=== PATIENT | male | born 1955 | race Caucasian/White ===

== ENCOUNTER → 2019-10-05 13:31 | Outpatient (CLI) | payer MEDICARE, SELFPAY ==
[2019-10-05 13:38] LABS: Basophils # 0.1 K/mm3 (0-0.2); Basophils % 1.2 % (0.1-2.0); Eosinophils # 0.1 K/mm3 (0.0-0.4); Hematocrit 47.1 % (42.0-52.0); Hemoglobin 15.4 g/dL (14.1-18.0); Lymphocytes # 1.8 K/mm3 (0.7-4.5); Lymphocytes % 47.7 % (10-50); Mean Corpuscular HGB Conc 32.7 g/dL (31.8-35.4); Mean Corpuscular Hemoglobin 31.7 pg (27.0-31.2); Mean Corpuscular Volume 97.1 fl (80-94); Mean Platelet Volume 7.7 fl (7.4-10.4); Monocytes # 0.3 K/mm3 (0.1-1.0); Monocytes % 7.4 % (1.7-9.3); Neutrophils # 1.5 K/mm3 (1.8-7.8); Neutrophils % 40.6 % (37.0-80.0); Platelet Count 275 K/mm3 (142-424); Red Blood Count 4.85 M/mm3 (4.60-6.20); Red Cell Distribution Width 15.2 % (11.5-17.5); White Blood Count 3.8 K/mm3 (4.8-10.8)
[2019-10-05 13:59] LABS: Chloride 108 mmol/L (98-107)
[2019-10-05 14:00] LABS: Potassium 3.8 mmoL/L (3.5-5.1); Sodium 143 mmol/L (136-145)
[2019-10-05 14:02] LABS: Alanine Aminotransferase 22 U/L (12-78); Alkaline Phosphatase 101 U/L (38-126); Aspartate Amino Transferase 49 U/L (17-59); Bilirubin,Total 0.4 mg/dl (0.2-1.3); Blood Urea Nitrogen 15 mg/dl (9-20); Estimated Glomerular Filt Rate 85 ml/min (>60); GFR (African American) 102 ML/MIN (>60)
[2019-10-05 14:03] LABS: Albumin Level 4.1 g/dl (3.5-5.0); Albumin/Globulin Ratio 1.2 (1.1-1.8); Anion Gap 13.8 mEq/L (5-15); Calcium 9.4 mg/dl (8.4-10.2); Carbon Dioxide 25 mmol/L (22.0-30.0); Chol/HDL Ratio 3.9 (1-3.5); Cholesterol 213 mg/dl (140-200); Globulin 3.4 g/dL (1.3-3.2); Glucose 88 mg/dl (74-100); HDL Cholesterol 54 mg/dl (40-60); Total Protein,Serum 7.5 g/dl (6.3-8.2); Triglycerides 257 mg/dl (30-150); VLDL Cholesterol 51 mg/dL (0-40)
[2019-10-05 14:14] LABS: Direct LDL Cholesterol 131.53 mg/dL (100-129)
[2019-10-05 14:20] LABS: T4 (Thyroxine) 9.1 ug/dl (5.53-11.0)
[2019-10-05 14:33] LABS: Thyroid Stimulating Hormone 0.93 uIU/mL (0.465-4.68)
[2019-10-06 12:18] LABS: PSA, Free 0.24 ng/mL; Prostate Specific Ag 0.8 ng/mL (0.0-4.0); Vitamin D 25 Hydroxy 8.5 ng/mL (30.0-100.0)
[2019-10-07 10:31] LABS: Vitamin B12 177 pg/mL (232-1245)
[2019-10-07 13:58] LABS: Folate 11.1 ng/mL (>3.0)
== END ==
LOC: LAB.DROPOF 13:31
PROVIDERS: Visit Provider Physician Assistant
DX: R06.02 Shortness of breath (principal); R53.83 Other fatigue; E78.5 Hyperlipidemia, unspecified; D64.9 Anemia, unspecified; E55.9 Vitamin D deficiency, unspecified; Z87.891 Personal history of nicotine dependence; Z12.2 Encounter for screening for malignant neoplasm of respiratory organs
CPT/HCPCS: 80053; 80061; 82607; 82652; 82746; 84153; 84154; 84436; 84443; 85025

== ENCOUNTER → 2019-10-27 09:52 | Outpatient (CLI) | payer MEDICARE, SELFPAY ==
--- NOTE | 2019-10-27 09:54 | CT_ITS ---
PROCEDURE: CT LUNG SCREENING CLINICAL INDICATION: Dyspnea, smoker Nicotine use, smoker, dyspnea COMPARISON: No exams were available for comparison TECHNIQUE: The exam was performed on a GE Light Speed [address] scanner using 2.90 mGy CTDI. A low dose helical CT CHEST was performed on a multi-detector scanner. All CT scans at the facility use one or more dose reduction, viz: automated exposure control, ma/kV adjustment per patient size (including targeted exams where dose is matched to indication, i.e. head), or iterative reconstruction technique. The LDCT was performed in a facility that meets the criteria for the screening program. Data regarding this exam was submitted to [employer] which is an approved registry. The order for this exam indicates that it came as a result of a lung cancer screening counseling shard decision-making visit that included all the elements required of such a visit including smoking cessation. The radiologist interpreting this exam meets the [facility] criteria for the LDCT lung cancer screening program. The exam is reported using the Lung-RADS classification scale and reported to the [employer] registry. NOTE: This study was performed for the specific purposes of lung cancer screening and is not an alternative to diagnostic chest CT. RADIATION DOSE: CTDI vol(CT dose Index-volume) = 2.90mG DLP (Dose Length Product) = 129.50 mGcm FINDINGS: COPD with centrilobular emphysema and scattered areas of scarring. Old granulomatous disease. Irregular increased density in the left upper lobe consistent with scarring.. 6 mm subpleural nodular opacity left lower lobe series 4, image 82 OTHER FINDINGS: Left paratracheal mass at 3.5 x 2.9 cm extending slightly posterior to the trachea inseparable from the thyroid and esophagus possibly related to goiter. Suggest thyroid ultrasound for further evaluation. Coronary artery calcifications are present. IMPRESSION: Lung rads category 3, probably benign. Recommend six-month CT follow-up without and with contrast. Left paratracheal mass. Suggest thyroid ultrasound for further evaluation. Dictated by: Jan Vela MD 11/02/2019 11:18 Electronically signed by Jan Vela MD in [place] 11/02/2019 11:18
== END ==
PROVIDERS: PCP Physician Assistant; Visit Provider Physician Assistant
DX: R06.02 Shortness of breath (principal); Z87.891 Personal history of nicotine dependence
CPT/HCPCS: 94060; 94727; 94729

== ENCOUNTER → 2019-11-07 10:44 | Outpatient (CLI) | payer MEDICARE, MEDICAID, SELFPAY ==
--- NOTE | 2019-11-07 10:45 | US_ITS ---
PROCEDURE: US THYROID CLINICAL INDICATION: left paratrachheal mass COMPARISON: CT LUNG SCREENING from 10/27/2019 FINDINGS: Right lobe: 4.2 x 1.8 x 2.1 cm. Small nodules are present on the right including a 7 mm isoechoic nodule mid polar region with central decreased echogenicity, heterogeneous echo midpole at 7.5 x 4 mm, 5 mm slightly hypoechoic nodule lower pole peripheral. Left lobe: 4.8 x 3 x 3.2 cm. There is an isoechoic nodule with heterogeneous echogenicity occupying most of the left lobe at 4.2 x 2.8 cm with prominent internal blood flow. No abnormal calcifications. The nodule is well-circumscribed and is a T rads level 3 for which ultrasound-guided FNA is suggested. Isthmus: Unremarkable Additional findings: IMPRESSION: Dominant solid nodule the left lobe of the thyroid gland at 4.2 x 2.8 cm. T rads level 3. Consider FNA with ultrasound guidance for further evaluation. Dictated by: Jan Vela MD 11/07/2019 11:28 Electronically signed by Jan Vela MD in [place] 11/07/2019 11:28
== END ==
PROVIDERS: PCP Physician Assistant; Visit Provider Emergency Medicine
DX: R22.2 Localized swelling, mass and lump, trunk (principal)
CPT/HCPCS: 76536

== ENCOUNTER → 2019-11-15 09:44 | Outpatient (CLI) | payer MEDICARE, MEDICAID, SELFPAY ==
--- NOTE | 2019-11-15 09:48 | US_ITS ---
PROCEDURE: US FNA THYROID CLINICAL INDICATION: THYROID NODULE Dominant left-sided thyroid nodule, T rads level 3 greater than 2.5 cm COMPARISON: US THYROID from 11/07/2019 TECHNIQUE: Following obtaining informed consent, using aseptic technique and local anesthesia with buffered lidocaine, fine-needle aspiration was performed of the nodule of interest using sonographic guidance. 3 passes were made into the nodule with a 21-gauge needle. Specimen was given to cytology. FINDINGS: CYTOLOGY: Negative for malignancy. Consistent with benign follicular nodule IMPRESSION: Uneventful and successful ultrasound-guided fine needle aspiration of the left lobe of the thyroid gland nodule showing a benign follicular nodule. The patient tolerated the procedure well without evidence of immediate complications and left the ultrasound suite in stable condition. Dictated by: Jan Vela MD 11/18/2019 16:42 Electronically signed by Jan Vela MD in [place] 11/18/2019 16:42
== END ==
PROVIDERS: PCP Physician Assistant; Visit Provider Physician Assistant
DX: E04.1 Nontoxic single thyroid nodule (principal)
CPT/HCPCS: 10005; 76942; 88173; 88305

== ENCOUNTER → 2020-04-26 12:53 | Outpatient (CLI) | payer MEDICARE, MEDICAID, SELFPAY ==
[2020-04-26 13:53] LABS: Anion Gap 11.7 mEq/L (5-15); Blood Urea Nitrogen 14 mg/dl (9-20); Calcium 9.6 mg/dl (8.4-10.2); Carbon Dioxide 28 mmol/L (22.0-30.0); Chloride 103 mmol/L (98-107); Estimated Glomerular Filt Rate 85 ml/min (>60); GFR (African American) 102 ML/MIN (>60); Glucose 105 mg/dl (74-100); Potassium 4.7 mmoL/L (3.5-5.1); Sodium 138 mmol/L (136-145)
--- NOTE | 2020-04-26 14:02 | CT_ITS ---
PROCEDURE: CT CHEST WO/W CON CLINCAL INDICATION: abn CT lung screening Follow-up pulmonary nodule, COPD, emphysema, smoker COMPARISON: CT CT LUNG SCREENING from 10/27/2019 TECHNIQUE: IV Contrast: 75ml Optiray 350 Axial images obtained with sagittal and coronal reformats. All CT scans at the facility use one or more dose reduction, viz: automated exposure control, ma/kV adjustment per patient size (including targeted exams where dose is matched to indication, i.e. head), or iterative reconstruction technique. FINDINGS: HEART AND MEDIASTINAL STRUCTURES: Enlarged left lobe of the thyroid gland with heterogeneous density once again noted. Previous FNA of this area demonstrated benign follicular nodule. The enlarged left lobe extends posterior to the thyroid gland and abuts the left lateral aspect of the esophagus. No mediastinal or hilar adenopathy. There are coronary artery calcifications. LUNGS AND PLEURAL SPACES: Centrilobular and paraseptal emphysema with COPD and scattered areas of scarring with bullous changes in the upper lobes and evidence of old granulomatous disease. There has been interval development of an irregular nodule in the right upper lobe anteriorly image 47 series 3 measuring 8 by 6 mm. There is a new 3 mm nodule in the right middle lobe. A new irregular opacity is also present in the right upper lobe posteriorly which has a somewhat curvilinear shape measuring 11 mm in length and 3 mm in with. There is some haziness around this nodular area. There is a stable parenchymal opacity in the left upper lobe posteriorly which may be due to an area of scarring. A new subpleural nodules present in the left upper lobe laterally image 35 measuring 4 mm. A new parenchymal opacity is present in the superior segment of the left lower lobe an 8 mm. An additional new nodule is present in the left upper lobe inferiorly at 5 mm image 50. A new 4 mm nodules present in the left lower lobe medially image 62. No effusions are evident. No areas of consolidation. The previously noted opacity in the left lung base posteriorly sub pleural region is no longer apparent. BONY STRUCTURES: No acute bony abnormalities apparent. UPPER ABDOMEN: Probable focal fatty infiltration at the falciform ligament region ADDITIONAL FINDINGS: No other significant abnormalities. IMPRESSION: 1. There has been interval development of multiple small parenchymal nodules. Some of these have a hazy margin. These could be inflammatory/infectious in nature. Cannot exclude the possibility of metastatic disease. Please correlate with clinical parameters. 2. Centrilobular and paraseptal emphysema with bullous changes and COPD 3. No change enlarged left lobe of the thyroid gland Dictated by: Jan Vela MD 04/28/2020 10:44 Jan Vela MD in [place] 04/28/2020 10:44
== END ==
PROVIDERS: PCP Physician Assistant; Visit Provider Physician Assistant
DX: R91.8 Other nonspecific abnormal finding of lung field; R93.89 Abnormal findings on diagnostic imaging of other specified body structures
CPT/HCPCS: 36415; 71270; 80048; Q9967

== ENCOUNTER 2024-07-21 19:23 | Inpatient (IN) | payer MEDICARE, MEDICAID, SELFPAY ==
[2024-07-21] VITALS (39 sets, daily range): BP systolic 162–221; BP diastolic 111–156; PULSE 88–125; RESP 10–31; TEMP 35.9–36.8; O2SAT 72–98; BMI 29.5; BMI 27.6
--- NOTE | 2024-07-21 19:28 | ED_ITS ---
Discharge Plan Disposition Patient Disposition: Admitted Condition: Fair Clinical Impressions Clinical Impression: PNA (pneumonia), Pulmonary emboli Discharge ED Provider: Matheus Kendall General Adult HPI General Chief complaint: Shortness of Breath/Dyspnea Stated complaint: cough, darya oxygen-76 Time Seen by Provider: 07/21/24 19:28 History of Present Illness HPI narrative: Patient presents for evaluation of shortness of breath gradual in onset constant worsening associated with known history of COPD. No previous therapies. Associated symptoms include chest pain, nonradiating, however pleuritic in nature. No leg pain or leg swelling Please note that above description of symptoms, in this electronic medical record under categorization of recalled from ER triage doctor by RN are reflective of an initial nursing assessment, however, is not reflective of my full history and physical exam that was personally taken and clarified. Consequentially, this preceding description of symptoms, which may include the patient's categorized chief complaint in the EMR, do not reflect my personal clinical impression, and the ultimate description of history of present illness and patient stated complaints should be deferred to this section of the note. Unless stated otherwise or congruent with this section of the note, additional signs, symptoms, or incongruence should be interpreted as inaccurate with my clinical impression. Related Data Previous Rx's ?Medication ?Instructions ?Recorded cholecalciferol (vitamin D3) 25 1,000 unit PO DAILY #90 caps 10/06/19 mcg (1,000 unit) capsule ergocalciferol (vitamin D2) 1,250 1,250 mcg PO QWEEK #14 caps 10/06/19 mcg (50,000 unit) capsule albuterol sulfate 90 mcg/actuation 2 puff inhalation Q6H #18 grams 12/15/19 aerosol inhaler (Proventil HFA) albuterol sulfate 90 mcg/actuation 1 inh inhalation QID PRN shortness 06/18/20 aerosol inhaler of breath or wheezing #8.5 grams fluticasone fur. 100 mcg-umeclid 1 inh inhalation DAILY #60 ea 06/18/20 62.5 mcg-vilant 25 mcg inhalat.powder (Trelegy Ellipta) lisinopril 20 mg tablet See Rx Instructions .Route 08/29/20 .COMPLEX #90 tabs amlodipine 2.5 mg tablet See Rx Instructions .Route 01/07/21 .COMPLEX #90 tabs Allergies Allergy/AdvReac Type Severity Reaction Status Date / Time No Known Allergies Allergy Verified 06/18/20 13:13 [facility] Disclaimer: The information contained in this section may have been updated after the patient was seen, as this information can be updated by other users. Social History Smoking Status: Former smoker tobacco type: cigarettes packs per day: 1 alcohol intake: never substance use type: denies use current occupational status: other Travel in the last 8 weeks: None Have you lived/traveled outside [place] in past 30 days?: No Contact w/someone who lives/traveled outside US past 30 days?: No Exposure to someone with infectious disease in past 14 days?: No Do you have a fever (greater than 100.4 F or 38 C)?: No Have you tested positive for COVID-19: No Exposed to someone with COVID-19 in past 14 days?: No Do you have a sore throat?: No Do you have a cough?: Yes Do you have any weakness?: No Do you have any diarrhea?: No Are you experiencing any unusual bleeding?: No Do you have any muscle aches/pain?: No Do you have any abdominal pain?: No Are you experiencing loss of taste or smell?: No Other Medical History Have you received the Flu Vaccine for this season: No Have you received the Pneumonia Vaccine: No ROS Obtained: Yes other As per HPI Physical Exam General General appearance: alert and in no apparent distress Head Head exam: atraumatic and normocephalic Eye Eye exam: Present normal appearance Neck Neck exam: Present normal inspection Chest Chest inspection: Present normal inspection and symmetric chest wall rise Respiratory Respiratory exam: Present respiratory distress and wheezes Cardiovascular Cardiovascular exam: Present regular rate and normal rhythm Abdominal Exam Abdominal exam: Present soft Neurological Exam Neurological exam: Present alert and oriented X3 Psychiatric Psychiatric exam: Present normal affect and normal mood Skin Skin exam: Present warm and dry Medical Decision Making Medical Records Medical records reviewed: Yes I reviewed the patient's medical records. Screening: Per USPSTF and CDC recommendations, given the prevalence of disease in our region, it is our hospital?s policy to screen for HIV and viral Hepatitis for all patients aged 18 and over and those with ongoing risk factors. Lc Inquiry Pt receiving controlled substance: No Vital Signs: 07/21/24 19:25 07/21/24 20:00 07/21/24 20:30 Temperature 97.9 F Temperature Source Oral Pulse Rate 101 H 104 H Pulse Rate [Left Apical] 118 H Respiratory Rate 28 H Blood Pressure 183/116 H 197/115 H Blood Pressure [Right Arm] 199/140 H Blood Pressure Mean 147 156 Blood Pressure Mean [Right Arm] 159 Blood Pressure Source Blood Pressure Position 02 Sat by Pulse Oximetry 72 L 92 L 94 L Oxygen Delivery Method Room Air Nasal Cannula BiPAP Oxygen Flow Rate (LPM) 3 07/21/24 20:54 07/21/24 21:00 07/21/24 21:05 Temperature Temperature Source Pulse Rate 103 H 92 H 99 H Pulse Rate [Left Apical] Respiratory Rate Blood Pressure 212/156 H 221/141 H 184/132 H Blood Pressure [Right Arm] Blood Pressure Mean 174 167 149 Blood Pressure Mean [Right Arm] Blood Pressure Source Blood Pressure Position 02 Sat by Pulse Oximetry 94 L 95 96 Oxygen Delivery Method BiPAP BiPAP BiPAP Oxygen Flow Rate (LPM) 07/21/24 21:10 07/21/24 21:15 07/21/24 21:20 Temperature Temperature Source Pulse Rate 99 H Pulse Rate [Left Apical] Respiratory Rate Blood Pressure 185/132 H 169/127 H 195/137 H Blood Pressure [Right Arm] Blood Pressure Mean 146 143 150 Blood Pressure Mean [Right Arm] Blood Pressure Source Blood Pressure Position 02 Sat by Pulse Oximetry 94 L 94 L Oxygen Delivery Method BiPAP BiPAP Oxygen Flow Rate (LPM) 07/21/24 21:25 07/21/24 23:17 Temperature 96.7 F L Temperature Source Oral Pulse Rate 96 H 106 H Pulse Rate [Left Apical] Respiratory Rate 14 18 Blood Pressure 180/124 H 178/119 H Blood Pressure [Right Arm] Blood Pressure Mean 142 Blood Pressure Mean [Right Arm] Blood Pressure Source Automatic Cuff Blood Pressure Position Supine 02 Sat by Pulse Oximetry 98 Oxygen Delivery Method BiPAP Nasal Cannula Oxygen Flow Rate (LPM) 4 Lab Data Lab Results 07/21/24 19:34: WBC 9.8, RBC 3.43 L, Hgb 12.4 L, Hct 31.9 L, MCV 93.0, MCH 36.2 H, MCHC 38.9 H, RDW 15.8, Plt Count 296, MPV 8.9, Neut % (Auto) 74.6, Lymph % (Auto) 14.0, Amelia % (Auto) 7.3, Eos % (Auto) 2.2, Baso % (Auto) 0.7, Neut # (Auto) 7.3, Lymph # (Auto) 1.4, Amelia # (Auto) 0.7, Eos # (Auto) 0.2, Baso # (Auto) 0.1, PT 11.6, INR 1.04, Sodium 134 L, Potassium 3.8, Chloride 104, Carbon Dioxide 28, Anion Gap 5.8, BUN 26 H, Creatinine 1.10, Estimated Creat Clear 86, Estimated GFR 66, Est GFR ( Amer) 80, Glucose 108 H, Calcium 8.9, Magnesium 1.8, Total Bilirubin 0.9, AST 53, ALT 43, Alkaline Phosphatase 88, T roponin I 0.16 H, NT-Pro-B Natriuret Pep 6060 H, Total Protein 7.1, Albumin 3.5, Globulin 3.6 H, Albumin/Globulin Ratio 1.0 L, HIV Ag/Ab Combo Qual Negative 07/21/24 19:41: SARS-CoV-2 (PCR) Detected A, Influenza A Untype (PCR) Not detected, Influenza Type B (PCR) Not detected 07/21/24 19:45: VBG pH 7.38, VBG pCO2 44.8, VBG pO2 28.8, VBG HCO3 25.7, VBG Total CO2 27.1 H, VBG O2 Saturation 49.7 L, VBG Base Excess 0.6, VBG Lactic Acid 2.1 H 07/21/24 19:34 07/21/24 19:34 Orders (Tests/Meds): ED MEDICATIONS Generic Name Dose Route Start Last Admin Trade Name Freq PRN Reason Stop Dose Admin Acetaminophen 650 mg 07/21/24 23:54 Acetaminophen 325mg Tab PO 08/20/24 23:53 Q4HP PRN Fever or Mild Pain (1-3) Al Hydrox/Mg Hydrox/Simethicone 30 ml 07/21/24 23:54 Aluminum/Magnesium/Simethicone 30ml Udc PO 08/20/24 23:53 QIDP PRN Dyspepsia Albuterol Sulfate 2.5 mg 07/21/24 23:51 Albuterol 0.083% 2.5 Mg/3 Ml Neb IH 08/20/24 23:50 Q4HP PRN Shortness Of Breath Albuterol/Ipratropium 3 ml 07/22/24 00:00 07/22/24 01:11 Ipratropium/Albuterol 3 Ml Neb IH 08/21/24 00:00 3 ml Q6RT SHARONA Administration Amlodipine Besylate 10 mg 07/22/24 09:00 Amlodipine 10mg Tablet PO 08/21/24 08:59 DAILY SHARONA Atorvastatin Calcium 40 mg 07/22/24 21:00 Atorvastatin 40mg Tablet PO 08/21/24 20:59 HS SHARONA Dexamethasone Sodium Phosphate 6 mg 07/21/24 23:45 07/22/24 01:10 Dexamethasone 4mg/Ml 1ml Vial IV 07/26/24 23:44 6 mg Q12H SHARONA Administration Docusate Sodium 100 mg 07/22/24 09:00 Docusate Sodium 100 Mg Capsule PO 08/21/24 08:59 DAILY SHARONA Doxycycline Hyclate 100 mg 07/21/24 23:45 07/22/24 01:11 Doxycycline Hycl 100 Mg Tablet PO 07/26/24 23:44 100 mg Q12H SHARONA Administration Furosemide 40 mg 07/22/24 05:00 Furosemide 40mg/4ml Vial IV 07/24/24 04:59 BIDL SHARONA Cefepime HCl 1 gm/ Sodium 50 mls @ 100 mls/hr 07/21/24 23:45 07/22/24 01:08 Chloride IV 07/28/24 23:44 100 mls/hr Q12H SHARONA Administration Nicardipine HCl 25 mg/ Sodium 250 mls @ 50 mls/hr 07/22/24 00:30 07/22/24 01:09 Chloride IV 08/21/24 00:29 5 mg/hr .Q5H SHARONA 50 mls/hr Administration Protocol 5 MG/HR Heparin Sodium/Dextrose 500 mls @ 33 mls/hr 07/22/24 00:45 Heparin 25,000 Units In D5w 500ml Premix IV 08/21/24 00:44 .[id number] SHARONA 1,650 UNIT/HR Ibuprofen 400 mg 07/21/24 23:54 Ibuprofen 400 Mg Tablet PO 08/20/24 23:53 Q6HP PRN Mild Pain (1-3) Lisinopril 0 mg 07/22/24 01:00 Lisinopril 20mg Tablet PO 08/21/24 00:59 .COMPLEX SHARONA Miscellaneous 1 each 07/21/24 23:45 07/22/24 00:39 Heparin Drip Consult NOTAPPLIC 08/20/24 23:44 1 each CONSULT PHARMACY [facility] Administration Morphine Sulfate 4 mg 07/22/24 00:30 Morphine 4mg/Ml Syringe IV 08/21/24 00:29 Q4HP PRN Severe Pain (7-10) Nicardipine HCl 0 mg 07/22/24 00:15 Nicardipine 25mg/10ml Vial IV 08/21/24 00:14 CONT [facility] Protocol Nicotine 21 mg 07/22/24 00:00 Nicotine 21mg/24hr Patch TD 08/21/24 00:00 DAILYP PRN Nicotine Cravings Nitroglycerin 0.4 mg 07/21/24 19:40 07/21/24 19:48 Nitroglycerin 0.4mg Sl Tablet SL 08/20/24 19:39 0.4 mg Q5MINP PRN Administration Chest Pain Ondansetron HCl 4 mg 07/21/24 23:54 Ondansetron 4mg/2ml Vial IV 08/20/24 23:53 Q8HP PRN Nausea Oxycodone HCl 5 mg 07/22/24 00:06 Oxycodone 5mg Immediate Release Tablet PO 08/21/24 00:05 Q4HP PRN Moderate Pain (4-6) Sodium Chloride 3 ml 07/22/24 00:59 Sodium Chloride 3% 15ml Neb IH 08/21/24 00:58 ONCE PRN INDUCE SPUTUM COLLECTION Discontinued Medications Generic Name Dose Route Start Last Admin Trade Name Freq PRN Reason Stop Dose Admin Furosemide 40 mg 07/21/24 19:40 07/21/24 19:48 Furosemide 40mg/4ml Vial IV 07/21/24 19:41 40 mg ONCE ONE Administration Heparin Sodium (Porcine) 7,700 unit 07/21/24 22:50 07/21/24 23:11 Heparin Sodium 5,000 Unit/Ml Vial IV 07/21/24 22:51 Not Given ONCE ONE Heparin Sodium (Porcine) 7,500 unit 07/22/24 00:45 07/22/24 01:10 Heparin Sodium 5,000 Unit/Ml Vial IV 07/22/24 00:46 7,500 unit ONCE ONE Administration Nitroglycerin/Dextrose 250 mls @ 1.5 mls/hr 07/21/24 20:45 07/21/24 21:55 Nitroglycerin 50mg/250ml D5w IV 08/20/24 20:44 10 mcg/min .Q24H SHARONA 3 mls/hr Titration Protocol 5 MCG/MIN Ceftriaxone Sodium 1 gm/ 50 mls @ 100 mls/hr 07/21/24 20:34 07/21/24 20:46 Sodium Chloride IV 07/21/24 21:03 100 mls/hr ONCE STA Administration Azithromycin 500 mg/ Sodium 250 mls @ 250 mls/hr 07/21/24 20:34 07/21/24 21:19 Chloride IV 07/21/24 20:35 250 mls/hr ONCE STA Administration Iopamidol 70 ml 07/21/24 20:10 07/21/24 20:11 Iopamidol-370 (76%);100ml Bottle IV 07/21/24 20:11 70 ml ONCE ONE Administration Methylprednisolone Sodium Succinate 80 mg 07/21/24 20:34 07/21/24 20:46 Methylprednisolone Sod Succ 125mg Vial IV 07/21/24 20:35 80 mg ONCE ONE Administration Morphine Sulfate 4 mg 07/21/24 23:54 Morphine 4mg/Ml Syringe IV 08/20/24 23:53 Q6HP PRN Severe Pain (7-10) Sodium Chloride 50 ml 07/21/24 20:10 07/21/24 20:11 0.9 % Sodium Chloride 50 Ml Vial IV 07/21/24 20:11 50 ml ONCE ONE Administration Sodium Chloride 10 ml 07/21/24 20:10 07/21/24 20:11 Sodium Chloride 0.9% 10ml Syr (Rad Only) IV 07/21/24 20:11 10 ml ONCE ONE Administration ORDERS Category Date Time Status CTA Chest [CT angio chest PE protocol] Stat Cat Scan 07/21/24 19:40 Completed XR chest portable Stat Exams 07/21/24 19:42 Completed BNP [NT Pro Brain Natriuretic Pep.] Stat Lab 07/21/24 19:34 Completed CBC w/Auto Diff [Complete Blood Count Auto Diff] Stat Lab 07/21/24 19:34 Completed CMP [Comprehensive Metabolic Panel] Stat Lab 07/21/24 19:34 Completed HIV Combo Stat Lab 07/21/24 19:34 Completed Hep C Ab with Reflex to RNA Stat Lab 07/21/24 19:34 Received MAG [Magnesium] Stat Lab 07/21/24 19:34 Completed PT INR [Prothrombin Time INR] Stat Lab 07/21/24 19:34 Completed Rapid PCR Covid and Flu A/B Stat Lab 07/21/24 19:41 Completed Troponin I Q3H Lab 07/21/24 19:34 Completed Troponin I Q3H Lab 07/21/24 23:02 Completed Blood Culture Stat Micro 07/21/24 21:19 Received VBG [Venous Blood Gas] Stat RT 07/21/24 19:45 Completed Medical Decision Narrative: Patient with history and exam per above presenting for evaluation of shortness of breath Diagnoses considered include ACS, COPD, pulmonary embolism, flash pulmonary edema, among others ED workup and treatment included: ED MEDICATIONS Generic Name Dose Route Start Last Admin Trade Name Freq PRN Reason Stop Dose Admin Acetaminophen 650 mg 07/21/24 23:54 Acetaminophen 325mg Tab PO 08/20/24 23:53 Q4HP PRN Fever or Mild Pain (1-3) Al Hydrox/Mg Hydrox/Simethicone 30 ml 07/21/24 23:54 Aluminum/Magnesium/Simethicone 30ml Udc PO 08/20/24 23:53 QIDP PRN Dyspepsia Albuterol Sulfate 2.5 mg 07/21/24 23:51 Albuterol 0.083% 2.5 Mg/3 Ml On license of [facility] 08/20/24 23:50 Q4HP PRN Shortness Of Breath Albuterol/Ipratropium 3 ml 07/22/24 00:00 07/22/24 01:11 Ipratropium/Albuterol 3 Ml On license of [facility] 08/21/24 00:00 3 ml Q6RT SHARONA Administration Amlodipine Besylate 10 mg 07/22/24 09:00 Amlodipine 10mg Tablet PO 08/21/24 08:59 DAILY SHARONA Atorvastatin Calcium 40 mg 07/22/24 21:00 Atorvastatin 40mg Tablet PO 08/21/24 20:59 HS SHARONA Dexamethasone Sodium Phosphate 6 mg 07/21/24 23:45 07/22/24 01:10 Dexamethasone 4mg/Ml 1ml Vial IV 07/26/24 23:44 6 mg Q12H SHARONA Administration Docusate Sodium 100 mg 07/22/24 09:00 Docusate Sodium 100 Mg Capsule PO 08/21/24 08:59 DAILY SHARONA Doxycycline Hyclate 100 mg 07/21/24 23:45 07/22/24 01:11 Doxycycline Hycl 100 Mg Tablet PO 07/26/24 23:44 100 mg Q12H SHARONA Administration Furosemide 40 mg 07/22/24 05:00 Furosemide 40mg/4ml Vial IV 07/24/24 04:59 BIDL SHARONA Cefepime HCl 1 gm/ Sodium 50 mls @ 100 mls/hr 07/21/24 23:45 07/22/24 01:08 Chloride IV 07/28/24 23:44 100 mls/hr Q12H SHARONA Administration Nicardipine HCl 25 mg/ Sodium 250 mls @ 50 mls/hr 07/22/24 00:30 07/22/24 01:09 Chloride IV 08/21/24 00:29 5 mg/hr .Q5H SHARONA 50 mls/hr Administration Protocol 5 MG/HR Heparin Sodium/Dextrose 500 mls @ 33 mls/hr 07/22/24 00:45 Heparin 25,000 Units In D5w 500ml Premix IV 08/21/24 00:44 .[id number] [facility] 1,650 UNIT/HR Ibuprofen 400 mg 07/21/24 23:54 Ibuprofen 400 Mg Tablet PO 08/20/24 23:53 Q6HP PRN Mild Pain (1-3) Lisinopril 0 mg 07/22/24 01:00 Lisinopril 20mg Tablet PO 08/21/24 00:59 .COMPLEX SHARONA Miscellaneous 1 each 07/21/24 23:45 07/22/24 00:39 Heparin Drip Consult NOTAPPLIC 08/20/24 23:44 1 each CONSULT PHARMACY [facility] Administration Morphine Sulfate 4 mg 07/22/24 00:30 Morphine 4mg/Ml Syringe IV 08/21/24 00:29 Q4HP PRN Severe Pain (7-10) Nicardipine HCl 0 mg 07/22/24 00:15 07/22/24 01:13 Nicardipine 25mg/10ml Vial IV 08/21/24 00:14 Not Given CONT [facility] Protocol Nicotine 21 mg 07/22/24 00:00 Nicotine 21mg/24hr Patch TD 08/21/24 00:00 DAILYP PRN Nicotine Cravings Nitroglycerin 0.4 mg 07/21/24 19:40 07/21/24 19:48 Nitroglycerin 0.4mg Sl Tablet SL 08/20/24 19:39 0.4 mg Q5MINP PRN Administration Chest Pain Ondansetron HCl 4 mg 07/21/24 23:54 Ondansetron 4mg/2ml Vial IV 08/20/24 23:53 Q8HP PRN Nausea Oxycodone HCl 5 mg 07/22/24 00:06 Oxycodone 5mg Immediate Release Tablet PO 08/21/24 00:05 Q4HP PRN Moderate Pain (4-6) Sodium Chloride 3 ml 07/22/24 00:59 Sodium Chloride 3% 15ml Neb IH 08/21/24 00:58 ONCE PRN INDUCE SPUTUM COLLECTION Discontinued Medications Generic Name Dose Route Start Last Admin Trade Name Freq PRN Reason Stop Dose Admin Furosemide 40 mg 07/21/24 19:40 07/21/24 19:48 Furosemide 40mg/4ml Vial IV 07/21/24 19:41 40 mg ONCE ONE Administration Heparin Sodium (Porcine) 7,700 unit 07/21/24 22:50 07/21/24 23:11 Heparin Sodium 5,000 Unit/Ml Vial IV 07/21/24 22:51 Not Given ONCE ONE Heparin Sodium (Porcine) 7,500 unit 07/22/24 00:45 07/22/24 01:10 Heparin Sodium 5,000 Unit/Ml Vial IV 07/22/24 00:46 7,500 unit ONCE ONE Administration Nitroglycerin/Dextrose 250 mls @ 1.5 mls/hr 07/21/24 20:45 07/21/24 21:55 Nitroglycerin 50mg/250ml D5w IV 08/20/24 20:44 10 mcg/min .Q24H SHARONA 3 mls/hr Titration Protocol 5 MCG/MIN Ceftriaxone Sodium 1 gm/ 50 mls @ 100 mls/hr 07/21/24 20:34 07/21/24 20:46 Sodium Chloride IV 07/21/24 21:03 100 mls/hr ONCE STA Administration Azithromycin 500 mg/ Sodium 250 mls @ 250 mls/hr 07/21/24 20:34 07/21/24 21:19 Chloride IV 07/21/24 20:35 250 mls/hr ONCE STA Administration Iopamidol 70 ml 07/21/24 20:10 07/21/24 20:11 Iopamidol-370 (76%);100ml Bottle IV 07/21/24 20:11 70 ml ONCE ONE Administration Methylprednisolone Sodium Succinate 80 mg 07/21/24 20:34 07/21/24 20:46 Methylprednisolone Sod Succ 125mg Vial IV 07/21/24 20:35 80 mg ONCE ONE Administration Morphine Sulfate 4 mg 07/21/24 23:54 Morphine 4mg/Ml Syringe IV 08/20/24 23:53 Q6HP PRN Severe Pain (7-10) Sodium Chloride 50 ml 07/21/24 20:10 07/21/24 20:11 0.9 % Sodium Chloride 50 Ml Vial IV 07/21/24 20:11 50 ml ONCE ONE Administration Sodium Chloride 10 ml 07/21/24 20:10 07/21/24 20:11 Sodium Chloride 0.9% 10ml Syr (Rad Only) IV 07/21/24 20:11 10 ml ONCE ONE Administration ORDERS Category Date Time Status CTA Chest [CT angio chest PE protocol] Stat Cat Scan 07/21/24 19:40 Completed XR chest portable Stat Exams 07/21/24 19:42 Completed BNP [NT Pro Brain Natriuretic Pep.] Stat Lab 07/21/24 19:34 Completed CBC w/Auto Diff [Complete Blood Count Auto Diff] Stat Lab 07/21/24 19:34 Completed CMP [Comprehensive Metabolic Panel] Stat Lab 07/21/24 19:34 Completed HIV Combo Stat Lab 07/21/24 19:34 Completed Hep C Ab with Reflex to RNA Stat Lab 07/21/24 19:34 Received MAG [Magnesium] Stat Lab 07/21/24 19:34 Completed PT INR [Prothrombin Time INR] Stat Lab 07/21/24 19:34 Completed Rapid PCR Covid and Flu A/B Stat Lab 07/21/24 19:41 Completed Troponin I Q3H Lab 07/21/24 19:34 Completed Troponin I Q3H Lab 07/21/24 23:02 Completed Blood Culture Stat Micro 07/21/24 21:19 Received VBG [Venous Blood Gas] Stat RT 07/21/24 19:45 Completed Labs were independently interpreted by me, significant for elevated BNP, initial troponin elevated, COVID detected Imaging was independently visualized and interpreted by me, significant for subsegmental pulmonary embolism, emphysematous changes, superimposed infection Please refer to radiology report for full details. Patient will benefit from mission for further management of multifactorial respiratory failure. Patient was accepted for admission by hospitalist. Critical Care Critical Care Time Critical Care Time: No
--- NOTE | 2024-07-21 19:40 | CT_ITS ---
PROCEDURE INFORMATION: Exam: CTA Chest With Contrast Exam date and time: 07/21/2024 8:10 PM Age: 68 years old Clinical indication: Shortness of breath; Additional info: HTN, chest pain, tachycardia, hypoxia TECHNIQUE: Imaging protocol: Computed tomographic angiography of the chest with contrast. Exam focused on the arteries. 3D rendering (Not supervised by radiologist): MIP and/or 3D reconstructed images were created by the technologist. Radiation optimization: All CT scans at this facility use at least one of these dose optimization techniques: automated exposure control; mA and/or kV adjustment per patient size (includes targeted exams where dose is matched to clinical indication); or iterative reconstruction. Contrast material: [id number]; Contrast volume: 70 ml; Contrast route: INTRAVENOUS (IV); COMPARISON: CR XR CHEST PORTABLE 07/21/2024 8:08 PM FINDINGS: Pulmonary arteries: Acute-appearing pulmonary emboli within the segmental and subsegmental branches of the left upper lobe (series 5, image 38), with associated mild right heart strain (RV/LV ratio of 1.2). Aorta: Unremarkable. No aortic aneurysm. No aortic dissection. Lungs: Moderate upper lobe predominant paraseptal and centrilobular emphysema. Bilateral mid and lower lung zone ground-glass opacities. Calcified granuloma within the anterior right upper lobe. Pleural spaces: Small bilateral pleural effusions with associated atelectasis. Heart: Unremarkable. No cardiomegaly. No pericardial effusion. Coronary arteries: Moderate three-vessel coronary artery atherosclerotic disease. Lymph nodes: Unremarkable. No enlarged lymph nodes. Bones/joints: Unremarkable. No acute fracture. Soft tissues: Unremarkable. IMPRESSION: 1. Acute-appearing pulmonary emboli within the segmental and subsegmental branches of the left upper lobe (series 5, image 38), with associated mild right heart strain (RV/LV ratio of 1.2). 2. Small bilateral pleural effusions with associated atelectasis. 3. Bilateral mid and lower lung zone ground-glass opacities. Imaging features can be seen with COVID-19 pneumonia, though are nonspecific and can occur with a variety of infectious and noninfectious processes. (Reference: Reji) COMMENTS: The presence of pulmonary emphysema on CT is an independent risk factor for lung cancer. In the absence of a history or active diagnosis of lung cancer, it is recommended that this patient with emphysema be evaluated for enrollment in a low dose CT lung cancer screening program. REFERENCES: Reji Em et al., [employer] Society of [place] Expert Consensus Statement on Reporting Chest CT Findings Related to COVID-19. Endorsed by the Society of Thoracic Radiology, the [employer], and RSNA. Published October 26, 2019.
--- NOTE | 2024-07-21 19:42 | XR_ITS ---
PROCEDURE INFORMATION: Exam: XR Chest Exam date and time: 07/21/2024 8:08 PM Age: 68 years old Clinical indication: Shortness of breath; Additional info: SOA, concern for pulmonary edema TECHNIQUE: Imaging protocol: Radiologic exam of the chest. Views: 1 view. COMPARISON: CT CHEST WO/W CON 04/26/2020 2:19 PM FINDINGS: Lungs: Bilateral mid and lower lung zone ground-glass and small consolidative opacities, right greater than left, likely multifocal pneumonia. Pleural spaces: Unremarkable. No pleural effusion. No pneumothorax. Heart/Mediastinum: Normal. Vasculature: Atherosclerotic vascular disease. Bones/joints: Multilevel thoracic spine degenerative disc space narrowing. IMPRESSION: Bilateral mid and lower lung zone ground-glass and small consolidative opacities, right greater than left, likely multifocal pneumonia. Recommend follow-up.
--- NOTE | 2024-07-21 19:44 | ECG_ITS ---
APPROVED REPORT Exam: Resting ECG HR:106 bpm ECG Measurements Heart Rate 106 AXES MN 124 P 58 QRSd 93 QRS 48 QT 359 T 2 QTc 421 Conclusion SINUS TACHYCARDIA POSSIBLE LEFT ATRIAL ENLARGEMENT [-0.1mV P-WAVE IN V1/V2] NONSPECIFIC T-WAVE ABNORMALITY ABNORMAL RHYTHM ECG UNCONFIRMED REPORT Electronically signed by : MURPHY JOY, 07/22/2024 06:48:30
[2024-07-21 19:48] LABS: Lactate Venous 2.1 mmol/L (0.4-2.0); VBG Base Excess 0.6 mmol/L (-2.4-2.3); VBG HCO3 25.7 mmol/L (23-30); VBG Oxygen Saturation 49.7 % (50-70); VBG PCO2 44.8 mmol/L (35-51); VBG PH 7.38 mmol/L (7.31-7.41); VBG PO2 28.8 mmol/L (28-40); VBG Total CO2 27.1 mmol/L (23-27)
[2024-07-21] MEDS: FUROSEMIDE 40MG/4ML VIAL 40 MG IV (19:48)
[2024-07-21] MEDS: NITROGLYCERIN 0.4MG SL TABLET 0.4 MG SL (19:48)
[2024-07-21 19:51] LABS: Albumin Level 3.5 g/dl (3.5-5.0); Chloride 104 mmol/L (98-107); Potassium 3.8 mmoL/L (3.5-5.1); Sodium 134 mmol/L (136-145)
[2024-07-21 19:54] LABS: Alanine Aminotransferase 43 U/L (12-78); Alkaline Phosphatase 88 U/L (38-126); Anion Gap 5.8 mEq/L (5-15); Aspartate Amino Transferase 53 U/L (17-59); Bilirubin,Total 0.9 mg/dl (0.2-1.3); Blood Urea Nitrogen 26 mg/dl (9-20); Carbon Dioxide 28 mmol/L (22.0-30.0); Creatinine Clearance Estimated 86 mL/min (50-200); Estimated Glomerular Filt Rate 66 ml/min (>60); GFR (African American) 80 ML/MIN (>60); Globulin 3.6 g/dL (1.3-3.2); Total Protein,Serum 7.1 g/dl (6.3-8.2)
[2024-07-21 19:55] LABS: Calcium 8.9 mg/dl (8.4-10.2); Glucose 108 mg/dl (74-100); Magnesium 1.8 mg/dl (1.6-2.3)
[2024-07-21 19:56] LABS: Eosinophils % 2.2 % (0.1-12.0); Hematocrit 31.9 % (42.0-52.0); Hemoglobin 12.4 g/dL (14.1-18.0); Mean Corpuscular HGB Conc 38.9 g/dL (31.8-35.4); Mean Corpuscular Hemoglobin 36.2 pg (27.0-31.2); Mean Platelet Volume 8.9 fl (7.4-10.4); Monocytes % 7.3 % (1.7-9.3); Neutrophils % 74.6 % (37.0-80.0); Platelet Count 296 K/mm3 (142-424); Red Blood Count 3.43 M/mm3 (4.60-6.20); Red Cell Distribution Width 15.8 % (11.5-17.5); White Blood Count 9.8 K/mm3 (4.8-10.8)
[2024-07-21 19:57] LABS: Basophils # 0.1 K/mm3 (0-0.2); Basophils % 0.7 % (0.1-2.0); Eosinophils # 0.2 K/mm3 (0.0-0.4); Lymphocytes # 1.4 K/mm3 (0.7-4.5); Monocytes # 0.7 K/mm3 (0.1-1.0); Neutrophils # 7.3 K/mm3 (1.8-7.8)
[2024-07-21 20:04] LABS: NT Pro Brain Natriuretic Pep. 6060 pg/mL (0-125)
[2024-07-21 20:07] LABS: Troponin I 0.16 ng/ml (0.00-0.034)
[2024-07-21 20:11] LABS: INR 1.04 (0.9-1.1); Prothrombin Time 11.6 seconds (10.1-12.5)
[2024-07-21] MEDS: SODIUM CHLORIDE 0.9% 10ML SYR (RAD ONLY) 10 ML IV (20:11)
[2024-07-21] MEDS: 0.9 % SODIUM CHLORIDE 50 ML VIAL IV (20:11)
[2024-07-21] MEDS: IOPAMIDOL-370 (76%);100ML BOTTLE 70 ML IV (20:11)
[2024-07-21 20:17] LABS: Influenza A, PCR Not Detected (NotDetected); Influenza B, PCR Not Detected (NotDetected)
--- NOTE | 2024-07-21 20:30 | PC.NURSE ---
Adjusted pt O2 to 4L
[2024-07-21 20:34] LABS: Coronavirus 19, PCR Detected (NotDetected)
--- NOTE | 2024-07-21 20:36 | PC.NURSE ---
pt incontinent of urine. This RN and tech changed patient brief, + pericare. no open areas noted
[2024-07-21] MEDS: CEFTRIAXONE 1 GM 1 GM in 0.9 % SODIUM CHLORIDE 50 ML IV (20:46)
[2024-07-21] MEDS: METHYLPREDNISOLONE SOD SUCC 125MG VIAL 80 MG IV (20:46)
[2024-07-21] MEDS: NITROGLYCERIN IN 5 % DEXTROSE 250 ML 1.5 MG IV (20:47)
--- NOTE | 2024-07-21 20:49 | PC.NURSE ---
As per MAR, pt started on NTG drip at 5mcg/min or 1.5mL's an hour. Silvino fergusonigned
--- NOTE | 2024-07-21 21:03 | ECG_ITS ---
APPROVED REPORT Exam: Resting ECG HR:98 bpm ECG Measurements Heart Rate 98 AXES SD 142 P 58 QRSd 86 QRS 38 QT 383 T 22 QTc 439 Conclusion SINUS RHYTHM NORMAL ECG UNCONFIRMED REPORT Electronically signed by : MURPHY JOY, 07/22/2024 06:48:42
[2024-07-21 21:09] LABS: HIV Combo NEGATIVE (Negative)
[2024-07-21] MEDS: AZITHROMYCIN 500 MG in 0.9 % SODIUM CHLORIDE 250 ML 250 MG IV (21:19)
--- NOTE | 2024-07-21 21:53 | PC.NURSE ---
titrated NTG drip to 10mcg/min
--- NOTE | 2024-07-21 23:20 | PC.NURSE ---
Respiratory at bedside, removed bipap and placed 4L O2 per NC at this time.
--- NOTE | 2024-07-21 23:20 | PC.NURSE ---
Report called to ROSA Alexander in the ICU.
[2024-07-21 23:36] LABS: Troponin I 0.14 ng/ml (0.00-0.034)
--- NOTE | 2024-07-21 23:39 | P.HP_ITS ---
History of Present Illness *Admission Date: 07/21/24 *Reason for visit:: SOB, chest pain *History of present illness: 68-year-old with past medical history of hypertension, hyperlipidemia, COPD, B12 deficiency,vitamin D deficiency. Patient presents complaining of 1 week SOB, QUEEN, pleuritic chest discomfort. Patient on BiPAP during my evaluation in emergency room with blood pressure of 195/125 on nitro drip 10 mcg/kg/min . Patient states his breathing has worsened over past 7 days. Denies lower extremity swelling, orthopnea, PND, history of heart failure. Patient describes chest discomfort as 2/10, dull, lasting minutes, substernal, worse with breathing. Patient's son present with patient in emergency room and collaborates the story. Denies history of MT, CVA, previous cardiac catheterization. Admits to fevers/chills over past few days. Denies known sick contacts, recent travel, abdominal pain. CTA chest shows bilateral segmental PEs with right heart strain, bilateral pulmonary embolus. Nasopharyngeal COVID PCR positive, BNP 6060, troponin 0.16->0.14 during emergency room evaluation [facility] Disclaimer: The information contained in this section may have been updated after the patient was seen, as this information can be updated by other users. Social History Smoking Status: Former smoker tobacco type: cigarettes packs per day: 1 alcohol intake: never substance use type: denies use current occupational status: other Travel in the last 8 weeks: None Have you lived/traveled outside [place] in past 30 days?: No Contact w/someone who lives/traveled outside US past 30 days?: No Exposure to someone with infectious disease in past 14 days?: No Do you have a fever (greater than 100.4 F or 38 C)?: No Have you tested positive for COVID-19: No Exposed to someone with COVID-19 in past 14 days?: No Do you have a sore throat?: No Do you have a cough?: Yes Do you have any weakness?: No Do you have any diarrhea?: No Are you experiencing any unusual bleeding?: No Do you have any muscle aches/pain?: No Do you have any abdominal pain?: No Are you experiencing loss of taste or smell?: No Other Medical History Have you received the Flu Vaccine for this season: No Have you received the Pneumonia Vaccine: No Review of Systems Review of Systems Review of systems:: pertinent systems reviewed and negative unless documented below Constitutional Constitutional: Reports system reviewed and no additional complaints, except as documented Meds Home Medications and Allergies Home Medications ?Medication ?Instructions ?Recorded ?Confirmed ?Type cholecalciferol (vitamin D3) 25 1,000 unit PO DAILY #90 caps 10/06/19 12/20/19 Rx mcg (1,000 unit) capsule ergocalciferol (vitamin D2) 1,250 1,250 mcg PO QWEEK #14 caps 10/06/19 12/20/19 Rx mcg (50,000 unit) capsule albuterol sulfate 90 mcg/actuation 2 puff inhalation Q6H #18 grams 12/15/19 12/20/19 Rx aerosol inhaler (Proventil HFA) albuterol sulfate 90 mcg/actuation 1 inh inhalation QID PRN shortness 06/18/20 Rx aerosol inhaler of breath or wheezing #8.5 grams fluticasone fur. 100 mcg-umeclid 1 inh inhalation DAILY #60 ea 06/18/20 Rx 62.5 mcg-vilant 25 mcg inhalat.powder (Trelegy Ellipta) lisinopril 20 mg tablet See Rx Instructions .Route 08/29/20 Rx .COMPLEX #90 tabs amlodipine 2.5 mg tablet See Rx Instructions .Route 01/07/21 Rx .COMPLEX #90 tabs New Prescriptions to Start Prescriptions: Allergies Allergy/AdvReac Type Severity Reaction Status Date / Time No Known Allergies Allergy Verified 06/18/20 13:13 Exam Data for Last 24 hours Vital signs and Labs for Last 24 Hours: Temp Pulse Resp BP Pulse Ox O2 Del Method O2 Flow Rate 96.7 F L 106 H 18 178/119 H 98 Nasal Cannula 4 07/21/24 23:17 07/21/24 23:17 07/21/24 23:17 07/21/24 23:17 07/21/24 21:25 07/21/24 23:17 07/21/24 23:17 FiO2 30 07/21/24 20:54 Laboratory Results - last 24 hr 07/21/24 19:34: WBC 9.8, RBC 3.43 L, Hgb 12.4 L, Hct 31.9 L, MCV 93.0, MCH 36.2 H, MCHC 38.9 H, RDW 15.8, Plt Count 296, MPV 8.9, Neut % (Auto) 74.6, Lymph % (Auto) 14.0, Coffee % (Auto) 7.3, Eos % (Auto) 2.2, Baso % (Auto) 0.7, Neut # (Auto) 7.3, Lymph # (Auto) 1.4, [place] # (Auto) 0.7, Eos # (Auto) 0.2, Baso # (Auto) 0.1, PT 11.6, INR 1.04, Sodium 134 L, Potassium 3.8, Chloride 104, Carbon Dioxide 28, Anion Gap 5.8, BUN 26 H, Creatinine 1.10, Estimated Creat Clear 86, Estimated GFR 66, Est GFR ( Amer) 80, Glucose 108 H, Calcium 8.9, Magnesium 1.8, Total Bilirubin 0.9, AST 53, ALT 43, Alkaline Phosphatase 88, Troponin I 0.16 H, NT-Pro-B Natriuret Pep 6060 H, Total Protein 7.1, Albumin 3.5, Globulin 3.6 H, Albumin/Globulin Ratio 1.0 L, HIV Ag/Ab Combo Qual Negative 07/21/24 19:41: SARS-CoV-2 (PCR) Detected A, Influenza A Untype (PCR) Not detected, Influenza Type B (PCR) Not detected 07/21/24 19:45: VBG pH 7.38, VBG pCO2 44.8, VBG pO2 28.8, VBG HCO3 25.7, VBG Total CO2 27.1 H, VBG O2 Saturation 49.7 L, VBG Base Excess 0.6, VBG Lactic Acid 2.1 H 07/21/24 23:02: Troponin I 0.14 H I & O for Last 24 hours: Intake & Output 07/18/24 07/19/24 07/20/24 07/21/24 23:59 23:59 23:59 23:59 Intake Total 1.7 / 1.7 Balance 1.7 / 1.7 Weight 96.162 kg *Routine HEENT Exam Head: Present normocephalic Eye: Present EOMI ENT: Present mucous membranes moist *Routine Neck Exam Neck: Present supple and full ROM *Routine Respiratory Exam Respiratory: Present decreased breath sounds, prolonged expiratory phase, respiratory distress, wheezes and diminished air movement *Routine Cardiovascular Exam Cardiovascular: Present tachycardia *Routine Abdominal Exam Abdominal: Present soft, normoactive bowel sounds and tenderness *Routine Rectal Exam Rectal:: deferred *Routine Genitalia Exam Genitalia:: deferred *Routine Extremities Exam Extremities: Present full ROM and normal capillary refill *Routine Skin Exam Skin: Present intact and dry *Routine Neurological Exam Neurological: Present alert and oriented X3 Assessment and Plan *Assessment and plan (1) Pulmonary emboli: Status: Acute Category: Medical Code(s): I26.99 - Other pulmonary embolism without acute cor pulmonale (2) PNA (pneumonia): Status: Acute Category: Medical Code(s): J18.9 - Pneumonia, unspecified organism (3) COPD (chronic obstructive pulmonary disease): Status: Chronic Qualifiers: COPD type: unspecified COPD Qualified Code(s): J44.9 - Chronic obstructive pulmonary disease, unspecified Category: Medical Code(s): J44.9 - Chronic obstructive pulmonary disease, unspecified (4) Hyperlipidemia: Status: Chronic Qualifiers: Hyperlipidemia type: unspecified Qualified Code(s): E78.5 - Hyperlipidemia, unspecified Category: Medical Code(s): E78.5 - Hyperlipidemia, unspecified (5) Vitamin B12 deficiency: Status: Chronic Category: Medical Code(s): E53.8 - Deficiency of other specified B group vitamins (6) Vitamin D deficiency: Status: Chronic Category: Medical Code(s): E55.9 - Vitamin D deficiency, unspecified (7) Hypertension: Status: Chronic Qualifiers: Hypertension type: unspecified Qualified Code(s): I10 - Essential (primary) hypertension Category: Medical Code(s): I10 - Essential (primary) hypertension (8) Shortness of breath: Status: Acute Category: Medical Code(s): R06.02 - Shortness of breath (9) COVID: Status: Acute Category: Medical Code(s): U07.1 - COVID-19 Plan 68-year-old with past medical history of hypertension, hyperlipidemia, COPD, B12 deficiency,vitamin D deficiency. Patient presents complaining of 1 week SOB, QUEEN, pleuritic chest discomfort. CTA chest shows bilateral segmental PEs with right heart strain, bilateral pulmonary embolus. Nasopharyngeal COVID PCR positive, BNP 6060, troponin 0.16->0.14. Patient admitted for respiratory distress secondary to new COVID with acute PE with right heart strain, hypertensive emergency, possible pneumonia present on admission, possible new CHF exacerbation, and COPD exacerbation. Problems as listed below: Imaging/lab work reviewed at time of admission: ? CTA chest bilateral segmental pulmonary embolus, bilateral pleural effusions, bilateral opacities indicative of possible airspace disease. ? WBC 9.8, Hg 12.4, HCT 31.9, PLT 296, NA 134, K3.8, CL 104, serum bicarb 28, BUN 26, CR 1.1, GLU 108, mag 1.8, total bili 0.9, AST 53, ALT 43, alk phos 88 I will recheck CMP, CBC with differential, and mag in AM. ?Troponin 0.16->0.14 ,BNP 6060. I will recheck troponins every 6 hours x 3. ? Nasopharyngeal COVID positive, nasopharyngeal influenza negative. ? VBG pH 7.38 CO2 44.8, LA 2.1 Acute PE with right heart strain: ? Admit to ICU on heparin gtt., order echocardiogram for a.m. Consult cardiology for EKOS evaluation in a.m. Patient on BiPAP at time of my evaluation emergency room. Wean from BiPAP to room air as tolerated. Morphine 4 mg IV every 4 hours as needed pain. Oxycodone 5 mg p.o. every 4 hours as needed pain. New COVID-19 pneumonia: ? Given Solu-Medrol in emergency room. Dexamethasone 6 mg IV every 6 x 5 days, DuoNebs 3 mL inhaled every 6 hours while awake, albuterol 2.4 mg inhaled every 4 hours as needed shortness of breath. Check sputum culture. Follow inflammatory markers daily including procalcitonin, CRP, D-dimer. Consider remdesivir if patient's breathing does not improve on beforementioned treatment modalities. Empirically treat for coexisting bacterial pneumonia with cefepime 1 g IV every 12, doxycycline 100 mg IV every 12. Wean from BiPAP as tolerated. Reviewed VBG numbers and believe patient may tolerate Vapotherm due to relatively normal CO2 levels.. Transition patient to Vapotherm overnight then wean from Vapotherm as tolerated. Blood cultures done at time of admission. Check respiratory panel. ? Consult pulmonary for management advised. Pneumonia present on admission: As above in pneumonia and acute PE sections. COPD exacerbation: As above in PE, COVID, and pneumonia sections. Hypertensive emergency: Patient placed on nitro drip 10 mcg/KG/minute in emergency room. Will discontinue nitro drip and transition patient to Cardene 2.5 Mg/HR and titrate to SBP less than 160. Continue home lisinopril 20 mg p.o. daily. Increase home amlodipine from 2.5 to 10 mg p.o. daily. Hyperlipidemia: Atorvastatin 40 mg p.o. daily PPx heparin GTT as noted above CODE STATUS full FEN cardiac diet MDM [place]: High. Patient suffering from acute PE, new COVID, new CHF, COPD e xacerbation, and hypertensive emergency which poses threat to life and bodily function. Data: High. See above. Patient's son acted as independent historian during my interview with patient emergency room. I also spoke with emergency room physician at time of admission and agree that patient required immediate ICU admission to treat beforementioned conditions. Risk: High. I made decision to admit patient to ICU to treat beforementioned conditions due to high risk of mortality if patient discharged home for emergency room. 40 minutes of critical care time spent on patient by Dr. Price 07/21/2024
[2024-07-21 23:41] LABS: Reflex Lactic Add Lactic Reflex
[2024-07-22] VITALS (26 sets, daily range): BP systolic 119–189; BP diastolic 81–121; PULSE 81–110; RESP 18–24; TEMP 36.6–36.8; O2SAT 90–96; BMI 27.6; BMI 29.6
[2024-07-22] MEDS: HEPARIN DRIP CONSULT 1 EACH NOTAPPLIC (00:39)
[2024-07-22 00:44] LABS: Lactic Acid Follow Up (RFLX 1) 1.3 mmol/L (0.7-2.1)
[2024-07-22 00:56] LABS: PTT Heparin (inpatient only) 28.6 Seconds (50-75)
[2024-07-22 00:57] LABS: Troponin I 0.12 ng/ml (0.00-0.034)
[2024-07-22] MEDS: CEFEPIME HCL 1 GM in 0.9 % SODIUM CHLORIDE 50 ML IV (01:08)
[2024-07-22] MEDS: NICARDIPINE HCL 25 MG in 0.9 % SODIUM CHLORIDE 240 ML 50 MG IV (01:09)
[2024-07-22 01:10] LABS: D-Dimer 2.56 ug/mL (0.0-0.5)
[2024-07-22] MEDS: DEXAMETHASONE 4MG/ML 1ML VIAL 6 MG IV ×2 (01:10→08:45)
[2024-07-22] MEDS: HEPARIN SODIUM 5,000 UNIT/ML VIAL 7500 UNIT IV (01:10)
[2024-07-22] MEDS: IPRATROPIUM/ALBUTEROL 3 ML NEB IH ×2 (01:11→06:25)
[2024-07-22] MEDS: DOXYCYCLINE HYCL 100 MG TABLET PO ×2 (01:11→12:22)
[2024-07-22] MEDS: HEPARIN SODIUM,PORCINE/D5W 500 ML 33 UNIT IV (01:31)
[2024-07-22 01:38] LABS: C-Reactive Protein 211.5 mg/L (0-4)
[2024-07-22 01:50] LABS: Procalcitonin 0.121 ng/mL (0.0-2.0)
[2024-07-22] MEDS: SODIUM CHLORIDE 3% 15ML NEB 3 ML IH (01:52)
[2024-07-22 03:02] LABS: ABG Base Excess 1.1 mmol/L (-2.4-2.3); ABG HCO3 24.3 mmhg (22.0-26.0); ABG Oxygen Saturation 91 % (90-100); ABG PCO2 32.2 mmhg (35.0-45.0); ABG PO2 62.3 mmhg (80-100); ABG TCO2 25.3 mmhg (23-27)
[2024-07-22 03:03] LABS: Allen's Test Acceptable; Oxygen 25L/50% %; Source Right Radial
[2024-07-22 03:35] LABS: PTT Heparin (inpatient only) 66.3 Seconds (50-75)
[2024-07-22] MEDS: FUROSEMIDE 40MG/4ML VIAL 40 MG IV (05:42)
--- NOTE | 2024-07-22 06:00 | XR_ITS ---
FINAL REPORT CLINICAL HISTORY: eval pul edema and resp distress COMPARISON: 07/21/2024 FINDINGS: There are bilateral airspace opacities, greatest in the right midlung show mild improvement suspicious for improving pneumonia. There is no evidence of effusion or pneumothorax. Mediastinum is unremarkable. There is Cardiomegaly. IMPRESSION: Improvement in the airspace opacity suspicious for improving pneumonia. Reviewed, Interpreted and Dictated by Stephanie Gresham MD Transcribed by Rukhsana Pérez Authenticated and [facility]
[2024-07-22 06:20] LABS: C-Reactive Protein 185.4 mg/L (0-4)
[2024-07-22 06:27] LABS: Hemoglobin 12.1 g/dL (14.1-18.0); Red Blood Count 3.26 M/mm3 (4.60-6.20); White Blood Count 7.5 K/mm3 (4.8-10.8)
[2024-07-22 06:28] LABS: Basophils % 0.5 % (0.1-2.0); Eosinophils % 0.1 % (0.1-12.0); Hematocrit 29.6 % (42.0-52.0); Lymphocytes # 0.8 K/mm3 (0.7-4.5); Lymphocytes % 10.2 % (10-50); Mean Corpuscular HGB Conc 40.9 g/dL (31.8-35.4); Mean Corpuscular Hemoglobin 37.1 pg (27.0-31.2); Mean Corpuscular Volume 90.8 fl (80-94); Monocytes # 0.1 K/mm3 (0.1-1.0); Monocytes % 1.2 % (1.7-9.3); Neutrophils # 6.5 K/mm3 (1.8-7.8); Platelet Count 293 K/mm3 (142-424); Red Cell Distribution Width 14.9 % (11.5-17.5)
[2024-07-22 06:30] LABS: MANUAL DIFFERENTIAL MANUAL DIFFERENTIAL (MANUAL DIFF)
--- NOTE | 2024-07-22 06:30 | CA_ITS ---
APPROVED REPORT EXAM: Comprehensive 2D, Doppler, and color-flow Echocardiogram Beverage Server: ARLYN Benoit, RVS Ht: 5 ft 11 in Wt: 212lbs BSA: 2.16 BP: 178/119 mmHg Indications: Acute COVID, Pneumonia, Pulmonary emboli, COPD, CP, HTN 2D Dimensions IVSd 1.18 cm LVEF (Visual) 50.20 % PWd 1.13 cm LA Volume 76.50 mL LVDd 4.71 cm LA Volume Index 34.60 mL/m2 (M/F) 16-34 LVDs 3.51 cm Left Atrium 3.51 cm M-Mode Dimensions LA Diam 4.34 cm (1.9-4.0) EPSs 0.44 cm TAPSE 2.20 (<1.7) LV Diastology E Decel Time 203 (160-240 msec) E/A Ratio 0.61 MED A' 18.20 cm/s LAT A' 14.10 cm/s Aortic Valve BANDAR Index 1.30 cm2/m2 AoV Peak Joseph. 157.0 (50-130 cm/s) AO Peak GR. 9.90 mmHg AO Mean GR. 4.90 (<5 mmHg) AO VTI 27.3 (18-25 cm) BANDAR (VTI) 2.87 (2.5-4.5 cm2) Mitral Valve MV A Velocity 117.0 (40-130 cm/s) E/A Ratio 0.61 Tricuspid Valve TR P. Velocity 374.00 cm/s RAP Estimate 10.00 mmHg RVSP 65.80 mmHg Left Ventricle The left ventricle is normal size. The left ventricular systolic function is normal. The left ventricular ejection fraction is within the normal range. There is increased LV wall thickness. There is normal LV segmental wall motion. Transmitral Doppler flow pattern suggests impaired LV relaxation. LVEF is 65%. Right Ventricle Right ventricle is mildly dilated. Right ventricle is mildly hypokinetic. The RV apex is hyperkinetic relative to the base. Findings may be indicative of a positive McConell sign in the appropriate setting. Atria The left atrium size is normal. The right atrium size is normal. No Doppler evidence of interatrial shunt. Aortic Valve The aortic valve is normal in structure. There is no aortic valvular stenosis. Trace aortic regurgitation is present. Mitral Valve The mitral valve is normal in structure. Trace mitral regurgitation. Tricuspid Valve Tricuspid valve is grossly normal in structure and function. Mild tricuspid regurgitation. RVSP is 50-55 mmHg. Pulmonic Valve The pulmonary valve is normal in structure. Trace pulmonic regurgitation. Great Vessels The aortic root is normal in size. IVC is normal in size and collapses >50% with inspiration. Pericardium There is no pericardial effusion. Other Information Study Quality: Fair Conclusion Normal LV systolic function. Mild RV dilation with mild reduction in RV function. The RV apex is hyperkinetic relative to the base. Findings may be indicative of a positive McConell sign in the appropriate setting. Mild TR. RVSP is 50-55 mmHg. Electronically signed by : Alycia Pinzon MD 07/22/2024 11:48:07
[2024-07-22 06:32] LABS: Procalcitonin 0.197 ng/mL (0.0-2.0)
[2024-07-22 06:39] LABS: Albumin Level 3.2 g/dl (3.5-5.0); Chloride 102 mmol/L (98-107); Potassium 4.1 mmoL/L (3.5-5.1); Sodium 134 mmol/L (136-145)
[2024-07-22 06:42] LABS: Alanine Aminotransferase 42 U/L (12-78); Alkaline Phosphatase 92 U/L (38-126); Anion Gap 10.1 mEq/L (5-15); Aspartate Amino Transferase 43 U/L (17-59); Bilirubin,Total 0.8 mg/dl (0.2-1.3); Blood Urea Nitrogen 26 mg/dl (9-20); Calcium 8.5 mg/dl (8.4-10.2); Carbon Dioxide 26 mmol/L (22.0-30.0); Cholesterol 125 mg/dl (140-200); Creatinine Clearance Estimated 91 mL/min (50-200); Estimated Glomerular Filt Rate 74 ml/min (>60); GFR (African American) 90 ML/MIN (>60); Globulin 3.1 g/dL (1.3-3.2); Glucose 183 mg/dl (74-100); HDL Cholesterol 21 mg/dl (40-60); Magnesium 1.8 mg/dl (1.6-2.3); Total Protein,Serum 6.3 g/dl (6.3-8.2); Triglycerides 134 mg/dl (30-150); VLDL Cholesterol 27 mg/dL (0-40)
[2024-07-22 06:53] LABS: Direct LDL Cholesterol 84.13 mg/dL (100-129)
[2024-07-22 06:54] LABS: Troponin I 0.09 ng/ml (0.00-0.034)
[2024-07-22 08:05] LABS: D-Dimer 2.74 ug/mL (0.0-0.5); PTT Heparin (inpatient only) 42.2 Seconds (50-75)
--- NOTE | 2024-07-22 08:17 | P.CONPHA_ITS ---
[facility] Heparin Dosing Demographic Data Admission date:: 07/21/24 Date: 07/22/24 Time: 08:19 Allergies Allergy/AdvReac Type Severity Reaction Status Date / Time No Known Allergies Allergy Verified 06/18/20 13:13 Height: 1.78 m Weight: 93.894 kg Indication Medication therapy:: Heparin Current Indications:: PULMONARY EMBOLISM - HIGH DOSE PROTOCOL Current Active Problems (Updated 07/22/24 @ 01:54 by Catherine Anderson RN) COVID (Acute) Pulmonary emboli (Acute) PNA (pneumonia) (Acute) COPD (chronic obstructive pulmonary disease) (Chronic) Hyperlipidemia (Chronic) Vitamin B12 deficiency (Chronic) Vitamin D deficiency (Chronic) Hypertension (Chronic) Shortness of breath (Acute) CVA?: No Bleeding problem?: No Kidney disease?: No SC?: No Additional History:: COVID-19 INFECTION, HYPERLIPIDEMIA, HYPERTENSION Desired PTT range:: 50-75 seconds Comments:: BASELINE PTT: 28.6 SECONDS Labs Anticoagulation Lab Results:: 07/21/24 07/22/24 19:34 05:27 Hgb 12.4 L 12.1 L Hct 31.9 L 29.6 L Plt Count 296 293 Monitoring Dose Monitor 1: Date: 07/22/24 Time: 00:23 PTT Result:: 28.6 SECONDS (BASELINE PTT) Infusion Rate:: LUIS RECOMMENDED INITIATING HEPARIN DRIP AT 1650 UNITS/HOUR = 33 ML/HOUR AND BOLUSING 7500 UNITS HEPARIN IV ONCE. Comment:: PLATELET COUNT = 296,000 Dose Monitor 2: Date: 07/22/24 Time: 03:10 PTT Result:: 66.3 SECONDS Infusion Rate:: LUIS RECOMMENDED CONTINUING CURRENT HEPARIN DRIP RATE OF 1650 UNITS/HOUR = 33 ML/HOUR Dose Monitor 3: Date: 07/22/24 Time: 05:27 PTT Result:: 42.2 SECONDS Infusion Rate:: RECOMMEND INCREASING HEPARIN DRIP TO 1800 UNITS/HOUR = 36 ML/HOUR AND BOLUSING 3000 UNITS HEPARIN IV ONCE. Comment:: PLATELET COUNT = 293,000 Dose Monitor 4: Date: 07/22/24 Time: 11:00 Comment:: PATIENT CHANGED TO LOVENOX 1 MG/KG SQ Q12H Core Measures Is INR > or = 2 at discharge?: No Most Recent Labs:: Laboratory Results - last 24 hr 07/21/24 19:34: WBC 9.8, RBC 3.43 L, Hgb 12.4 L, Hct 31.9 L, MCV 93.0, MCH 36.2 H, MCHC 38.9 H, RDW 15.8, Plt Count 296, MPV 8.9, Neut % (Auto) 74.6, Lymph % (Auto) 14.0, [place] % (Auto) 7.3, Eos % (Auto) 2.2, Baso % (Auto) 0.7, Neut # (Auto) 7.3, Lymph # (Auto) 1.4, [place] # (Auto) 0.7, Eos # (Auto) 0.2, Baso # (Auto) 0.1, PT 11.6, INR 1.04, Sodium 134 L, Potassium 3.8, Chloride 104, Carbon Dioxide 28, Anion Gap 5.8, BUN 26 H, Creatinine 1.10, Estimated Creat Clear 86, Estimated GFR 66, Est GFR ( Amer) 80, Glucose 108 H, Calcium 8.9, Magnesium 1.8, Total Bilirubin 0.9, AST 53, ALT 43, Alkaline Phosphatase 88, Troponin I 0.16 H, NT-Pro-B Natriuret Pep 6060 H, Total Protein 7.1, Albumin 3.5, Globulin 3.6 H, Albumin/Globulin Ratio 1.0 L, HIV Ag/Ab Combo Qual Negative 07/21/24 19:41: SARS-CoV-2 (PCR) Detected A, Influenza A Untype (PCR) Not detected, Influenza Type B (PCR) Not detected 07/21/24 19:45: VBG pH 7.38, VBG pCO2 44.8, VBG pO2 28.8, VBG HCO3 25.7, VBG Total CO2 27.1 H, VBG O2 Saturation 49.7 L, VBG Base Excess 0.6, VBG Lactic Acid 2.1 H 07/21/24 23:02: Troponin I 0.14 H 07/22/24 00:23: APTT 28.6 L, D-Dimer 2.56 H, Lactate 1.3, Troponin I 0.12 H, C- Reactive Protein 211.5 H, Procalcitonin 0.121 07/22/24 03:00: Specimen Source Right radial, O2 % 25l/50%, ABG pH 7.50 H, ABG pCO2 32.2 L, ABG pO2 62.3 L, ABG HCO3 24.3, ABG Total CO2 25.3, ABG O2 Saturation 91, ABG Base Excess 1.1, Jan Test Acceptable 07/22/24 03:10: APTT 66.3 07/22/24 05:27: WBC 7.5, RBC 3.26 L, Hgb 12.1 L, Hct 29.6 L, MCV 90.8, MCH 37.1 H, MCHC 40.9 H*, RDW 14.9, Plt Count 293, MPV 9.0, Neut % (Auto) 86.0 H, Lymph % (Auto) 10.2, [place] % (Auto) 1.2 L, Eos % (Auto) 0.1, Baso % (Auto) 0.5, Neut # (Auto) 6.5, Lymph # (Auto) 0.8, [place] # (Auto) 0.1, Eos # (Auto) 0.0, Baso # (Auto) 0.0, APTT 42.2 L, D-Dimer 2.74 H, Sodium 134 L, Potassium 4.1, Chloride 102, Carbon Dioxide 26, Anion Gap 10.1, BUN 26 H, Creatinine 1.00, Estimated Creat Clear 91, Estimated GFR 74, Est GFR ( Amer) 90, Glucose 183 H D, Calcium 8.5, Magnesium 1.8, Total Bilirubin 0.8, AST 43, ALT 42, Alkaline Phosphatase 92, Troponin I 0.09 H, C-Reactive Protein 185.4 H, Total Protein 6. 3, Albumin 3.2 L, Globulin 3.1, Albumin/Globulin Ratio 1.0 L, Triglycerides 134, Cholesterol 125 L, LDL Cholesterol Direct 84.13 L, VLDL Cholesterol 27, HDL Cholesterol 21 L, Cholesterol/HDL Ratio 6.0 H, Procalcitonin 0.197 If INR was < than 2.0 why was therapy stopped?: PATIENT CHANGED TO LOVENOX Were Heparin and Warfarin started on the same day?: No If not, why?: PATIENT CHANGED TO LOVENOX
[2024-07-22] MEDS: DOCUSATE SODIUM 100 MG CAPSULE PO (08:42)
[2024-07-22] MEDS: AMLODIPINE 10MG TABLET 10 MG PO (08:42)
[2024-07-22] MEDS: LISINOPRIL 20MG TABLET 20 MG PO (08:42)
[2024-07-22] MEDS: CEFEPIME HCL 2 GM in 0.9 % SODIUM CHLORIDE 100 ML IV ×2 (08:43→17:05)
[2024-07-22] MEDS: OXYCODONE 5MG IMMEDIATE RELEASE TABLET 5 MG PO (08:44)
[2024-07-22] MEDS: HEPARIN SODIUM 5,000 UNIT/ML VIAL 3000 UNIT IV (08:46)
[2024-07-22] MEDS: HEPARIN SODIUM,PORCINE/D5W 500 ML 36 UNIT IV (08:54)
[2024-07-22] MEDS: ALUMINUM/MAGNESIUM/SIMETHICONE 30ML UDC 30 ML PO (09:10)
--- NOTE | 2024-07-22 09:53 | EXP.PULM.CON ---
History of Present Illness History of present illness: Mr. Watts is 68 years old male with reported history of COPD hypertension dyslipidemia presented with worsening respiratory distress chest pain pulmonary was called for further evaluation and management. Greater than [id number] smoking history. Not using any oxygen supplementation at baseline. Using inhalers, admits complaince [facility] Disclaimer: The information contained in this section may have been updated after the patient was seen, as this information can be updated by other users. Medical History (Updated 07/22/24 @ 12:43 by Mabel Ledbetter MD) Pneumonia due to COVID-19 virus Osteoarthritis COPD (chronic obstructive pulmonary disease) Family History Other Colon cancer Lung cancer Social History Smoking Status: Former smoker tobacco type: cigarettes packs per day: 1 alcohol intake: never substance use type: denies use current occupational status: other Travel in the last 8 weeks: None Have you lived/traveled outside [place] in past 30 days?: No Contact w/someone who lives/traveled outside US past 30 days?: No Exposure to someone with infectious disease in past 14 days?: No Do you have a fever (greater than 100.4 F or 38 C)?: No Have you tested positive for COVID-19: No Exposed to someone with COVID-19 in past 14 days?: No Do you have a sore throat?: No Do you have a cough?: Yes Do you have any weakness?: No Do you have any diarrhea?: No Are you experiencing any unusual bleeding?: No Do you have any muscle aches/pain?: No Do you have any abdominal pain?: No Are you experiencing loss of taste or smell?: No Review of Systems Constitutional Constitutional: Reports body ache(s), Reports fatigue, Reports lethargy and Reports weakness Eyes Eyes: Denies itchy eyes and Denies loss of vision ENT Ears, Nose, Mouth, and Throat: Denies hearing loss, Denies lip swelling, Denies throat swelling and Denies vertigo *Cardiovascular Cardiovascular: Reports chest pain, Reports dyspnea on exertion and Denies syncope *Respiratory Respiratory: Reports change in phlegm color, Reports cough, Reports dyspnea on exertion, Reports excessive phlegm production, Denies hemoptysis, Reports pain on inspiration and Reports pain with cough *Gastrointestinal Gastrointestinal: Denies change in stool character, Denies nausea and Denies vomiting *Genitourinary Genitourinary: Denies difficulty urinating *Musculoskeletal Musculoskeletal: Denies muscle weakness Integumentary/Breasts Skin/Breast: Denies changing lesions *Neurologic Neurologic: Denies loss of vision, Denies syncope, Denies vertigo and Reports weakness Psychiatric Psychiatric: Denies homicidal ideation and Denies suicidal ideation Endocrine Endocrine: Reports fatigue Hematologic/Lymphatic Hematologic/Lymphatic: Denies easy bleeding and Denies lymphadenopathy Allergic/Immunologic Allergic/Immunologic: Denies itchy eyes, Denies lip swelling and Denies throat swelling Pulmonology Exam Inpatient Vital signs and Labs for Last 24 Hours: Temp Pulse Resp BP Pulse Ox O2 Del Method O2 Flow Rate 98.1 F 97 H 24 136/87 92 L Vapotherm 25 07/22/24 08:00 07/22/24 08:00 07/22/24 08:00 07/22/24 08:00 07/22/24 08:00 07/22/24 08:00 07/22/24 08:00 FiO2 60 07/22/24 08:00 Laboratory Results - last 24 hr 07/21/24 19:34: WBC 9.8, RBC 3.43 L, Hgb 12.4 L, Hct 31.9 L, MCV 93.0, MCH 36.2 H, MCHC 38.9 H, RDW 15.8, Plt Count 296, MPV 8.9, Neut % (Auto) 74.6, Lymph % (Auto) 14.0, [place] % (Auto) 7.3, Eos % (Auto) 2.2, Baso % (Auto) 0.7, Neut # (Auto) 7.3, Lymph # (Auto) 1.4, [place] # (Auto) 0.7, Eos # (Auto) 0.2, Baso # (Auto) 0.1, PT 11.6, INR 1.04, Sodium 134 L, Potassium 3.8, Chloride 104, Carbon Dioxide 28, Anion Gap 5.8, BUN 26 H, Creatinine 1.10, Estimated Creat Clear 86, Estimated GFR 66, Est GFR ( Amer) 80, Glucose 108 H, Calcium 8.9, Magnesium 1.8, Total Bilirubin 0.9, AST 53, ALT 43, Alkaline Phosphatase 88, Troponin I 0.16 H, NT-Pro-B Natriuret Pep 6060 H, Total Protein 7.1, Albumin 3.5, Globulin 3.6 H, Albumin/Globulin Ratio 1.0 L, HIV Ag/Ab Combo Qual Negative 07/21/24 19:41: SARS-CoV-2 (PCR) Detected A, Influenza A Untype (PCR) Not detected, Influenza Type B (PCR) Not detected 07/21/24 19:45: VBG pH 7.38, VBG pCO2 44.8, VBG pO2 28.8, VBG HCO3 25.7, VBG Total CO2 27.1 H, VBG O2 Saturation 49.7 L, VBG Base Excess 0.6, VBG Lactic Acid 2.1 H 07/21/24 23:02: Troponin I 0.14 H 07/22/24 00:23: APTT 28.6 L, D-Dimer 2.56 H, Lactate 1.3, Troponin I 0.12 H, C-Reactive Protein 211.5 H, Procalcitonin 0.121 07/22/24 03:00: Specimen Source Right radial, O2 % 25l/50%, ABG pH 7.50 H, ABG pCO2 32.2 L, ABG pO2 62.3 L, ABG HCO3 24.3, ABG Total CO2 25.3, ABG O2 Saturation 91, ABG Base Excess 1.1, Jan Test Acceptable 07/22/24 03:10: APTT 66.3 07/22/24 05:27: WBC 7.5, RBC 3.26 L, Hgb 12.1 L, Hct 29.6 L, MCV 90.8, MCH 37.1 H, MCHC 40.9 H*, RDW 14.9, Plt Count 293, MPV 9.0, Neut % (Auto) 86.0 H, Lymph % (Auto) 10.2, [place] % (Auto) 1.2 L, Eos % (Auto) 0.1, Baso % (Auto) 0.5, Neut # (Auto) 6.5, Lymph # (Auto) 0.8, [place] # (Auto) 0.1, Eos # (Auto) 0.0, Baso # (Auto) 0.0, APTT 42.2 L, D-Dimer 2.74 H, Sodium 134 L, Potassium 4.1, Chloride 102, Carbon Dioxide 26, Anion Gap 10.1, BUN 26 H, Creatinine 1.00, Estimated Creat Clear 91, Estimated GFR 74, Est GFR ( Amer) 90, Glucose 183 H D, Calcium 8.5, Magnesium 1.8, Total Bilirubin 0.8, AST 43, ALT 42, Alkaline Phosphatase 92, Troponin I 0.09 H, C-Reactive Protein 185.4 H, Total Protein 6.3, Albumin 3.2 L, Globulin 3.1, Albumin/Globulin Ratio 1.0 L, Triglycerides 134, Cholesterol 125 L, LDL Cholesterol Direct 84.13 L, VLDL Cholesterol 27, HDL Cholesterol 21 L, Cholesterol/HDL Ratio 6.0 H, Procalcitonin 0.197 I & O for Labs for Last 24 Hours: Intake & Output 07/19/24 07/20/24 07/21/24 07/22/24 23:59 23:59 23:59 23:59 Intake Total 1.7 / 1.7 730 / 730 Output Total 700 / 700 Balance 1.7 / 1.7 30 Weight 203 lb 9 oz 207 lb 0.013 oz Constitutional: Present severe distress Head: Present normocephalic and atraumatic ENT: Present normal exam, normal oropharynx and mucous membranes moist Neck: Present normal inspection and full ROM Respiratory: Present respiratory distress, rhonchi, diminished air movement, able to speak in complete sentences and symmetric chest movement; Absent wheezes Cardiac: Present S1/S2, Tachycardia and radial pulses present GI: Present soft and distention; Absent tenderness or guarding Skin: Present intact; Absent cyanosis or jaundice Neuro: Present alert, awake and oriented x 3 Extremities: Present normal inspection; Absent clubbing or cyanosis Psychiatric: Present normal affect and cooperative Meds Home Medications and Allergies Home Medications ?Medication ?Instructions ?Recorded ?Confirmed ?Type No Known Home Medications 07/22/24 07/22/24 History New Prescriptions to Start Prescriptions: Allergies Allergy/AdvReac Type Severity Reaction Status Date / Time No Known Allergies Allergy Verified 06/18/20 13:13 Results Laboratory Findings 07/22/24 05:27 07/22/24 05:27 ABG ABG pH 7.50 mmol/L (7.35-7.45) H 07/22/24 03:00 ABG pCO2 32.2 mmhg (35.0-45.0) L 07/22/24 03:00 ABG pO2 62.3 mmhg (80-100) L 07/22/24 03:00 ABG O2 Saturation 91 % (90-100) 07/22/24 03:00 PT/INR, D-dimer PT 11.6 seconds (10.1-12.5) 07/21/24 19:34 INR 1.04 (0.9-1.1) 07/21/24 19:34 D-Dimer 2.74 ug/mL (0.0-0.5) H 07/22/24 05:27 Abnormal lab findings: Abnormal Labs 07/21/24 07/21/24 07/21/24 19:34 19:41 19:45 RBC 3.43 L Hgb 12.4 L Hct 31.9 L MCH 36.2 H MCHC 38.9 H Neut % (Auto) [place] % (Auto) APTT D-Dimer ABG pH ABG pCO2 ABG pO2 VBG Total CO2 27.1 H VBG O2 Saturation 49.7 L VBG Lactic Acid 2.1 H Sodium 134 L BUN 26 H Glucose 108 H Troponin I 0.16 H C-Reactive Protein NT-Pro-B Natriuret Pep 6060 H Albumin Globulin 3.6 H Albumin/Globulin Ratio 1.0 L Cholesterol LDL Cholesterol Direct HDL Cholesterol Cholesterol/HDL Ratio SARS-CoV-2 (PCR) Detected A 07/21/24 07/22/24 07/22/24 23:02 00:23 03:00 RBC Hgb Hct MCH MCHC Neut % (Auto) [place] % (Auto) APTT 28.6 L D-Dimer 2.56 H ABG pH 7.50 H ABG pCO2 32.2 L ABG pO2 62.3 L VBG Total CO2 VBG O2 Saturation VBG Lactic Acid Sodium BUN Glucose Troponin I 0.14 H 0.12 H C-Reactive Protein 211.5 H NT-Pro-B Natriuret Pep Albumin Globulin Albumin/Globulin Ratio Cholesterol LDL Cholesterol Direct HDL Cholesterol Cholesterol/HDL Ratio SARS-CoV-2 (PCR) 07/22/24 05:27 RBC 3.26 L Hgb 12.1 L Hct 29.6 L MCH 37.1 H MCHC 40.9 H* Neut % (Auto) 86.0 H [place] % (Auto) 1.2 L APTT 42.2 L D-Dimer 2.74 H ABG pH ABG pCO2 ABG pO2 VBG Total CO2 VBG O2 Saturation VBG Lactic Acid Sodium 134 L BUN 26 H Glucose 183 H D Troponin I 0.09 H C-Reactive Protein 185.4 H NT-Pro-B Natriuret Pep Albumin 3.2 L Globulin Albumin/Globulin Ratio 1.0 L Cholesterol 125 L LDL Cholesterol Direct 84.13 L HDL Cholesterol 21 L Cholesterol/HDL Ratio 6.0 H SARS-CoV-2 (PCR) Assessment and Plan *Assessment and plan (1) PNA (pneumonia): Status: Acute Category: Medical Code(s): J18.9 - Pneumonia, unspecified organism (2) Pulmonary emboli: Status: Acute Category: Medical Code(s): I26.99 - Other pulmonary embolism without acute cor pulmonale (3) Pneumonia due to COVID-19 virus: Status: Acute Category: Medical Code(s): U07.1 - COVID-19; J12.82 - Pneumonia due to coronavirus disease 2019 Plan Mr. Watts is 68 years old male with reported history of COPD hypertension dyslipidemia presented with worsening respiratory distress chest pain pulmonary was called for further evaluation and management. Greater than [id number] smoking history. Not using any oxygen supplementation at baseline. Using inhalers, admits complaince CTA PE protocol upon admission left upper lobe segmental and subsegmental pulmonary embolism. Bilateral pleural effusions small. Significant upper lobe predominant emphysematous changes. Prominent groundglass airspace disease in the lower lobes Rt > Lt. CT evidence of RV strain and elevated troponin. Afebrile. Hemodynamically stable. Platelet count 293. No evidence of leukocytosis. COVID-19 PCR positive. D-dimer and 2.74. CRP elevated at 185.4 troponin at 0.09, plateaued, repeat at 0.08 Patient currently being managed for COVID-19 pneumonia and pulmonary embolism and bacterial pneumonia, receiving cefepime, remdesivir and dexamethasone and nebulization therapies. On examination patient appeared to be in severe respiratory distress. No significant wheezing noted on auscultation. Plan: Continue high flow nasal oxygen supplementation to maintain O2 saturation of 90% and above, currently on 25 L 60%. Trelegy 100 inhaler DuoNebs 4 times daily as needed -Continue heparin drip for pulmonary embolism. Likely provoked in setting of COVID-19 pneumonia. Can be weaned to oral anticoagulation. -Continue cefepime pending culture results. Follow with nasal MRSA PCR sputum and blood cultures. -Continue remdesivir x 5 days OR untill Discharge -Continue dexamethasone x10 days OR untill Discharge #Involving pulmonary in this patient with. Will continue to follow-up
[2024-07-22] MEDS: REMDESIVIR 200 MG in 0.9 % SODIUM CHLORIDE 250 ML 250 MG IV (09:54)
--- NOTE | 2024-07-22 10:02 | HMH.PHAINT1 ---
Pharmacy Intervention Comments: DISCUSSED WITH PATIENT, HE TAKES NO MEDICINES
[2024-07-22 10:14] LABS: Lymphocytes % 13 % (10-50); Monocytes % 3 % (2-9); Neutrophils % 84 % (42-76); Platelet Estimate Normal; RBC Morphology Normal; Total Cells Counted 100
--- NOTE | 2024-07-22 10:25 | EXP.CARD.CON ---
History of Present Illness History of Present Illness Consult date: 07/22/24 Requesting physician: Saurabh Price Chief complaint: SOA History of present illness: 68-year-old white male presented to the hospital with severe worsening shortness of breath and cough. Patient diagnosed with COVID PNA and PE. Admitted to ICU on Heparin and Vapotheram at 25/60. We are consulted for possible EKOS. CTA shows acute appearing pulmonary emboli with within the segmental and subsegmental branches of the left upper lobe with associated mild right heart strain. Small bilateral pleural effusions with associated atelectasis and bilateral lateral mid and lower lung zone groundglass opacities. BP and heart rate stable. [facility] Disclaimer: The information contained in this section may have been updated after the patient was seen, as this information can be updated by other users. Medical History Osteoarthritis COPD (chronic obstructive pulmonary disease) Family History Other Colon cancer Lung cancer Social History Smoking Status: Former smoker tobacco type: cigarettes packs per day: 1 alcohol intake: never substance use type: denies use current occupational status: other Travel in the last 8 weeks: None Have you lived/traveled outside [place] in past 30 days?: No Contact w/someone who lives/traveled outside [place] past 30 days?: No Exposure to someone with infectious disease in past 14 days?: No Do you have a fever (greater than 100.4 F or 38 C)?: No Have you tested positive for COVID-19: No Exposed to someone with COVID-19 in past 14 days?: No Do you have a sore throat?: No Do you have a cough?: Yes Do you have any weakness?: No Do you have any diarrhea?: No Are you experiencing any unusual bleeding?: No Do you have any muscle aches/pain?: No Do you have any abdominal pain?: No Are you experiencing loss of taste or smell?: No Review of Systems Constitutional Constitutional: Reports fatigue and Reports weakness Eyes Eyes: Denies loss of vision ENT Ears, Nose, Mouth, and Throat: Denies hearing loss and Denies vertigo *Cardiovascular Cardiovascular: Denies chest pain, Reports dyspnea and Denies syncope *Respiratory Respiratory: Denies cough and Reports dyspnea *Gastrointestinal Gastrointestinal: Denies change in stool character, Denies nausea and Denies vomiting *Genitourinary Genitourinary: Denies difficulty urinating *Musculoskeletal Musculoskeletal: Denies muscle weakness Integumentary/Breasts Skin/Breast: Denies changing lesions *Neurologic Neurologic: Denies loss of vision, Denies syncope, Denies vertigo and Reports weakness Endocrine Endocrine: Reports fatigue Exam Data for Last 24 hours Vital signs and Labs for Last 24 Hours: Temp Pulse Resp BP Pulse Ox O2 Del Method O2 Flow Rate 98.1 F 97 H 24 136/87 91 L Vapotherm 25 07/22/24 08:00 07/22/24 08:00 07/22/24 08:00 07/22/24 08:00 07/22/24 10:12 07/22/24 10:12 07/22/24 10:12 FiO2 60 07/22/24 10:12 Laboratory Results - last 24 hr 07/21/24 19:34: WBC 9.8, RBC 3.43 L, Hgb 12.4 L, Hct 31.9 L, MCV 93.0, MCH 36.2 H, MCHC 38.9 H, RDW 15.8, Plt Count 296, MPV 8.9, Neut % (Auto) 74.6, Lymph % (Auto) 14.0, [place] % (Auto) 7.3, Eos % (Auto) 2.2, Baso % (Auto) 0.7, Neut # (Auto) 7.3, Lymph # (Auto) 1.4, [place] # (Auto) 0.7, Eos # (Auto) 0.2, Baso # (Auto) 0.1, PT 11.6, INR 1.04, Sodium 134 L, Potassium 3.8, Chloride 104, Carbon Dioxide 28, Anion Gap 5.8, BUN 26 H, Creatinine 1.10, Estimated Creat Clear 86, Estimated GFR 66, Est GFR ( Amer) 80, Glucose 108 H, Calcium 8.9, Magnesium 1.8, Total Bilirubin 0.9, AST 53, ALT 43, Alkaline Phosphatase 88, Troponin I 0.16 H, NT-Pro-B Natriuret Pep 6060 H, Total Protein 7.1, Albumin 3.5, Globulin 3.6 H, Albumin/Globulin Ratio 1.0 L, HIV Ag/Ab Combo Qual Negative 07/21/24 19:41: SARS-CoV-2 (PCR) Detected A, Influenza A Untype (PCR) Not detected, Influenza Type B (PCR) Not detected 07/21/24 19:45: VBG pH 7.38, VBG pCO2 44.8, VBG pO2 28.8, VBG HCO3 25.7, VBG Total CO2 27.1 H, VBG O2 Saturation 49.7 L, VBG Base Excess 0.6, VBG Lactic Acid 2.1 H 07/21/24 23:02: Troponin I 0.14 H 07/22/24 00:23: APTT 28.6 L, D-Dimer 2.56 H, Lactate 1.3, Troponin I 0.12 H, C-Reactive Protein 211.5 H, Procalcitonin 0.121 07/22/24 03:00: Specimen Source Right radial, O2 % 25l/50%, ABG pH 7.50 H, ABG pCO2 32.2 L, ABG pO2 62.3 L, ABG HCO3 24.3, ABG Total CO2 25.3, ABG O2 Saturation 91, ABG Base Excess 1.1, Jan Test Acceptable 07/22/24 03:10: APTT 66.3 07/22/24 05:27: WBC 7.5, RBC 3.26 L, Hgb 12.1 L, Hct 29.6 L, MCV 90.8, MCH 37.1 H, MCHC 40.9 H*, RDW 14.9, Plt Count 293, MPV 9.0, Neut % (Auto) 86.0 H, Lymph % (Auto) 10.2, [place] % (Auto) 1.2 L, Eos % (Auto) 0.1, Baso % (Auto) 0.5, Neut # (Auto) 6.5, Lymph # (Auto) 0.8, [place] # (Auto) 0.1, Eos # (Auto) 0.0, Baso # (Auto) 0.0, Total Counted 100, Neutrophils % (Manual) 84 H, Lymphocytes % (Manual) 13, Monocytes % (Manual) 3, Platelet Estimate Normal, RBC Morphology Normal, APTT 42.2 L, D-Dimer 2.74 H, Sodium 134 L, Potassium 4.1, Chloride 102, Carbon Dioxide 26, Anion Gap 10.1, BUN 26 H, Creatinine 1.00, Estimated Creat Clear 91, Estimated GFR 74, Est GFR ( Amer) 90, Glucose 183 H D, Calcium 8.5, Magnesium 1.8, Total Bilirubin 0.8, AST 43, ALT 42, Alkaline Phosphatase 92, Troponin I 0.09 H, C-Reactive Protein 185.4 H, Total Protein 6.3, Albumin 3.2 L, Globulin 3.1, Albumin/Globulin Ratio 1.0 L, Triglycerides 134, Cholesterol 125 L, LDL Cholesterol Direct 84.13 L, VLDL Cholesterol 27, HDL Cholesterol 21 L, Cholesterol/HDL Ratio 6.0 H, Procalcitonin 0.197 I & O for Last 24 hours: Intake & Output 07/19/24 07/20/24 07/21/24 07/22/24 23:59 23:59 23:59 23:59 Intake Total 1.7 / 1.7 730 / 730 Output Total 700 / 700 Balance 1.7 / 1.7 Weight 203 lb 9 oz 207 lb 0.013 oz Constitutional Constitutional: no acute distress and cooperative *Routine HEENT Exam Eye: Present PERRL *Routine Respiratory Exam Respiratory: Present CTA bilaterally; Absent accessory muscle use, wheezes or crackles Comments: On Vapotherm *Routine Cardiovascular Exam Cardiovascular: Present RRR, Normal S1 and Normal S2; Absent murmur, gallop or rubs *Routine Abdominal Exam Abdominal: Present soft; Absent tenderness *Routine Extremities Exam Extremities: Present pulses intact; Absent cyanosis or edema *Routine Skin Exam Skin: Present intact; Absent erythema or wounds *Routine Neurological Exam Neurological: Present alert and oriented X3 Routine Psychiatric Exam Psychiatric: Present cooperative Meds Home Medications and Allergies Home Medications ?Medication ?Instructions ?Recorded ?Confirmed ?Type No Known Home Medications 07/22/24 07/22/24 History New Prescriptions to Start Prescriptions: Allergies Allergy/AdvReac Type Severity Reaction Status Date / Time No Known Allergies Allergy Verified 06/18/20 13:13 Assessment and Plan *Assessment and plan (1) Pulmonary emboli: Status: Acute Category: Medical Code(s): I26.99 - Other pulmonary embolism without acute cor pulmonale (2) COVID: Status: Acute Category: Medical Code(s): U07.1 - COVID-19 (3) PNA (pneumonia): Status: Acute Category: Medical Code(s): J18.9 - Pneumonia, unspecified organism (4) COPD (chronic obstructive pulmonary disease): Status: Chronic Qualifiers: COPD type: unspecified COPD Qualified Code(s): J44.9 - Chronic obstructive pulmonary disease, unspecified Category: Medical Code(s): J44.9 - Chronic obstructive pulmonary disease, unspecified Plan Left upper lobe acute pulmonary embolism -Appears provoked secondary to COVID -Check 2D echo for right heart strain and CHF -Continue heparin -I discussed possibility of procedural intervention with patient and he would like to wait for now COVID PNA - per Pulmonology
[2024-07-22 11:33] LABS: PTT Heparin (inpatient only) 57.7 Seconds (50-75)
[2024-07-22 11:45] LABS: Troponin I 0.08 ng/ml (0.00-0.034)
[2024-07-22] MEDS: ENOXAPARIN 100MG/ML SYRINGE 95 MG SUBCUT (12:22)
--- NOTE | 2024-07-22 16:44 | PC.NURSE ---
Patient able to tolerate cardene drip being off. VS stable. Vapotherm weaned to 25L 50%. Lung sounds diminished. Lasix changed to bumex as patient is not diuresing well.
[2024-07-22] MEDS: BUMETANIDE 1MG/4ML VIAL 2 MG IV (17:04)
--- NOTE | 2024-07-22 17:31 | P.PN_ITS ---
Subjective *Date: 07/23/24 *Time: 16:10 Interval history: Patient continues to require 25 L on Vapotherm. However, seems comfortable without respiratory distress. Denies chest pain. Exam Data for Last 24 hours Vital signs and Labs for Last 24 Hours: Temp Pulse Resp BP Pulse Ox O2 Del Method O2 Flow Rate 97.8 F 99 H 18 139/84 94 L Vapotherm 25 07/22/24 16:00 07/22/24 16:00 07/22/24 16:00 07/22/24 16:00 07/22/24 16:00 07/22/24 16:00 07/22/24 10:57 FiO2 60 07/22/24 10:12 Laboratory Results - last 24 hr 07/21/24 19:34: WBC 9.8, RBC 3.43 L, Hgb 12.4 L, Hct 31.9 L, MCV 93.0, MCH 36.2 H, MCHC 38.9 H, RDW 15.8, Plt Count 296, MPV 8.9, Neut % (Auto) 74.6, Lymph % (Auto) 14.0, [place] % (Auto) 7.3, Eos % (Auto) 2.2, Baso % (Auto) 0.7, Neut # (Auto) 7.3, Lymph # (Auto) 1.4, [place] # (Auto) 0.7, Eos # (Auto) 0.2, Baso # (Auto) 0.1, PT 11.6, INR 1.04, Sodium 134 L, Potassium 3.8, Chloride 104, Carbon Dioxide 28, Anion Gap 5.8, BUN 26 H, Creatinine 1.10, Estimated Creat Clear 86, Estimated GFR 66, Est GFR ( Amer) 80, Glucose 108 H, Calcium 8.9, Magnesium 1.8, Total Bilirubin 0.9, AST 53, ALT 43, Alkaline Phosphatase 88, Troponin I 0.16 H, NT-Pro-B Natriuret Pep 6060 H, Total Protein 7.1, Albumin 3.5, Globulin 3.6 H, Albumin/Globulin Ratio 1.0 L, HIV Ag/Ab Combo Qual Negative 07/21/24 19:41: SARS-CoV-2 (PCR) Detected A, Influenza A Untype (PCR) Not detec naif, Influenza Type B (PCR) Not detected 07/21/24 19:45: VBG pH 7.38, VBG pCO2 44.8, VBG pO2 28.8, VBG HCO3 25.7, VBG Total CO2 27.1 H, VBG O2 Saturation 49.7 L, VBG Base Excess 0.6, VBG Lactic Acid 2.1 H 07/21/24 23:02: Troponin I 0.14 H 07/22/24 00:23: APTT 28.6 L, D-Dimer 2.56 H, Lactate 1.3, Troponin I 0.12 H, C- Reactive Protein 211.5 H, Procalcitonin 0.121 07/22/24 03:00: Specimen Source Right radial, O2 % 25l/50%, ABG pH 7.50 H, ABG pCO2 32.2 L, ABG pO2 62.3 L, ABG HCO3 24.3, ABG Total CO2 25.3, ABG O2 Saturation 91, ABG Base Excess 1.1, Jan Test Acceptable 07/22/24 03:10: APTT 66.3 07/22/24 05:27: WBC 7.5, RBC 3.26 L, Hgb 12.1 L, Hct 29.6 L, MCV 90.8, MCH 37.1 H, MCHC 40.9 H*, RDW 14.9, Plt Count 293, MPV 9.0, Neut % (Auto) 86.0 H, Lymph % (Auto) 10.2, [place] % (Auto) 1.2 L, Eos % (Auto) 0.1, Baso % (Auto) 0.5, Neut # (Auto) 6.5, Lymph # (Auto) 0.8, [place] # (Auto) 0.1, Eos # (Auto) 0.0, Baso # (Auto) 0.0, Total Counted 100, Neutrophils % (Manual) 84 H, Lymphocytes % (Manual) 13, Monocytes % (Manual) 3, Platelet Estimate Normal, RBC Morphology Normal, APTT 42.2 L, D-Dimer 2.74 H, Sodium 134 L, Potassium 4.1, Chloride 102, Carbon Dioxide 26, Anion Gap 10.1, BUN 26 H, Creatinine 1.00, Estimated Creat Clear 91, Estimated GFR 74, Est GFR ( Amer) 90, Glucose 183 H D, Calcium 8.5, Magnesium 1.8, Total Bilirubin 0.8, AST 43, ALT 42, Alkaline Phosphatase 92, Troponin I 0.09 H, C-Reactive Protein 185.4 H, Total Protein 6.3, Albumin 3.2 L, Globulin 3.1, Albumin/Globulin Ratio 1.0 L, Triglycerides 134, Cholesterol 125 L, LDL Cholesterol Direct 84.13 L, VLDL Cholesterol 27, HDL Cholesterol 21 L, Cholesterol/HDL Ratio 6.0 H, Procalcitonin 0.197 07/22/24 11:11: APTT 57.7, Troponin I 0.08 H I & O for Last 24 hours: Intake & Output 07/19/24 07/20/24 07/21/24 07/22/24 23:59 23:59 23:59 23:59 Intake Total 1.7 / 1.7 1620 / 1620 Output Total 700 / 700 Balance 1.7 / 1.7 920 / 920 Weight 92.334 kg 93.89 kg Constitutional Constitutional: no acute distress *Routine HEENT Exam Head: Present normocephalic Eye: Present EOMI and PERRL ENT: Present mucous membranes moist *Routine Neck Exam Neck: Present supple; Absent lymphadenopathy *Routine Respiratory Exam Respiratory: Present CTA bilaterally *Routine Cardiovascular Exam Cardiovascular: Present RRR *Routine Abdominal Exam Abdominal: Present soft and normoactive bowel sounds; Absent tenderness *Routine Extremities Exam Extremities: Absent cyanosis, clubbing or edema *Routine Skin Exam Skin: Present warm; Absent rash *Routine Neurological Exam Neurological: Present alert and oriented X3 Assessment and Plan *Assessment and plan (1) Pulmonary emboli: Status: Acute Category: Medical Code(s): I26.99 - Other pulmonary embolism without acute cor pulmonale (2) PNA (pneumonia): Status: Acute Category: Medical Code(s): J18.9 - Pneumonia, unspecified organism (3) COPD (chronic obstructive pulmonary disease): Status: Chronic Qualifiers: COPD type: unspecified COPD Qualified Code(s): J44.9 - Chronic obstructive pulmonary disease, unspecified Category: Medical Code(s): J44.9 - Chronic obstructive pulmonary disease, unspecified (4) Hyperlipidemia: Status: Chronic Qualifiers: Hyperlipidemia type: unspecified Qualified Code(s): E78.5 - Hyperlipidemia, unspecified Category: Medical Code(s): E78.5 - Hyperlipidemia, unspecified (5) Vitamin B12 deficiency: Status: Chronic Category: Medical Code(s): E53.8 - Deficiency of other specified B group vitamins (6) Vitamin D deficiency: Status: Chronic Category: Medical Code(s): E55.9 - Vitamin D deficiency, unspecified (7) Hypertension: Status: Chronic Qualifiers: Hypertension type: unspecified Qualified Code(s): I10 - Essential (primary) hypertension Category: Medical Code(s): I10 - Essential (primary) hypertension (8) Shortness of breath: Status: Acute Category: Medical Code(s): R06.02 - Shortness of breath (9) COVID: Status: Acute Category: Medical Code(s): U07.1 - COVID-19 Plan 68-year-old with past medical history of hypertension, hyperlipidemia, COPD, B12 deficiency,vitamin D deficiency. Patient presents complaining of 1 week SOB, QUEEN, pleuritic chest discomfort. CTA chest shows bilateral segmental PEs with right heart strain, bilateral pulmonary embolus. Nasopharyngeal COVID PCR positive, BNP 6060, troponin 0.16->0.14. Patient admitted for respiratory distress secondary to new COVID with acute PE with right heart strain, hypertensive emergency, possible pneumonia present on admission, possible new CHF exacerbation, and COPD exacerbation. Problems as listed below: #Acute hypoxic respiratory failure #Pulmonary emboli #Multifocal pneumonia #Suspected HFpEF exacerbation versus right ventricular strain #COVID-19 ? Patient tested positive for COVID-19, presented with 1 week onset of shortness of breath, pleuritic chest pain. ? CTA revealed acute appearing pulmonary emboli in the left upper lobe with mild right heart strain. Also revealed multifocal pneumonia associated with COVID- 19. ? BNP elevated to 6060, initial WBC normal. Troponins peaked at 0.16. EKG without acute ischemic changes. ? ECHO revealed normal LV systolic function, increased LV wall thickness, RV apex hypokinesis suggestive of Bright sign. RVSP 50 to 55 mmHg. ? Continue cefepime, doxycycline pending cultures. ? Continue Decadron day 210, remdesivir day 1/. ? Therapeutic Lovenox for now, will transition to Eliquis tomorrow. ? Continue IV Bumex 2 mg twice daily for now. Follow renal function ? Continue 25 L Vapotherm, wean as tolerated. Desaturated with weaning today. ? Follow-up sputum, blood cultures. ? Pulmonology and cardiology assisting with care. No plans for EKOS per cardiology. #Hypertensive urgency ? Initial blood pressures were 200s over 140s, started on nicardipine drip with good response. ? Continue home lisinopril 20 mg p.o. daily. Increase home amlodipine from 2.5 to 10 mg p.o. daily. #Hyperlipidemia - Atorvastatin 40 mg p.o. daily. Full code DVT prophylaxis: Sarah
[2024-07-22] MEDS: ATORVASTATIN 40MG TABLET 40 MG PO (21:20)
[2024-07-23] VITALS (25 sets, daily range): BP systolic 108–153; BP diastolic 62–98; PULSE 76–113; RESP 18–27; TEMP 36.5–37; O2SAT 91–98; BMI 29.9
[2024-07-23] MEDS: CEFEPIME HCL 2 GM in 0.9 % SODIUM CHLORIDE 100 ML IV ×3 (00:20→17:38)
[2024-07-23] MEDS: DOXYCYCLINE HYCL 100 MG TABLET PO ×2 (00:20→11:46)
[2024-07-23] MEDS: ACETAMINOPHEN 325MG TAB 650 MG PO (00:20)
[2024-07-23] MEDS: ENOXAPARIN 100MG/ML SYRINGE 95 MG SUBCUT (00:20)
--- NOTE | 2024-07-23 05:13 | PC.NURSE ---
Patient has had a great night. Has had no complaints and slept on and off. Son is in the room with him
[2024-07-23] MEDS: FLUTICASONE/UMECLIDIN/VILANTER 100/62.5/25MCG INHALER 1 PUFF IH (06:25)
[2024-07-23 07:28] LABS: Albumin Level 3.2 g/dl (3.5-5.0); Chloride 102 mmol/L (98-107)
[2024-07-23 07:29] LABS: Potassium 4.5 mmoL/L (3.5-5.1); Sodium 132 mmol/L (136-145); White Blood Count 12.5 K/mm3 (4.8-10.8)
[2024-07-23 07:30] LABS: Basophils % 0.2 % (0.1-2.0); Hematocrit 29.6 % (42.0-52.0); Hemoglobin 11.3 g/dL (14.1-18.0); Lymphocytes # 1.1 K/mm3 (0.7-4.5); Lymphocytes % 8.5 % (10-50); Mean Corpuscular HGB Conc 38.2 g/dL (31.8-35.4); Mean Corpuscular Hemoglobin 35.6 pg (27.0-31.2); Mean Corpuscular Volume 93.4 fl (80-94); Mean Platelet Volume 9.5 fl (7.4-10.4); Monocytes % 5.2 % (1.7-9.3); Neutrophils # 10.7 K/mm3 (1.8-7.8); Neutrophils % 85.2 % (37.0-80.0); Platelet Count 339 K/mm3 (142-424); Red Blood Count 3.17 M/mm3 (4.60-6.20); Red Cell Distribution Width 16.7 % (11.5-17.5)
[2024-07-23 07:31] LABS: Alanine Aminotransferase 37 U/L (12-78); Albumin/Globulin Ratio 0.9 (1.1-1.8); Anion Gap 7.5 mEq/L (5-15); Aspartate Amino Transferase 39 U/L (17-59); Blood Urea Nitrogen 55 mg/dl (9-20); Carbon Dioxide 27 mmol/L (22.0-30.0); Creatinine Clearance Estimated 72 mL/min (50-200); Estimated Glomerular Filt Rate 55 ml/min (>60); GFR (African American) 66 ML/MIN (>60); Globulin 3.4 g/dL (1.3-3.2); MANUAL DIFFERENTIAL MANUAL DIFFERENTIAL (MANUAL DIFF); Monocytes # 0.7 K/mm3 (0.1-1.0); Total Protein,Serum 6.6 g/dl (6.3-8.2)
[2024-07-23 07:32] LABS: Alkaline Phosphatase 69 U/L (38-126); Bilirubin,Total 0.6 mg/dl (0.2-1.3); Calcium 8.7 mg/dl (8.4-10.2); Glucose 135 mg/dl (74-100); Magnesium 2.2 mg/dl (1.6-2.3)
[2024-07-23 07:53] LABS: C-Reactive Protein 104.4 mg/L (0-4)
[2024-07-23 07:54] LABS: D-Dimer 2.64 ug/mL (0.0-0.5)
[2024-07-23 08:05] LABS: Procalcitonin 0.096 ng/mL (0.0-2.0)
[2024-07-23 08:14] LABS: HCV Ab Non Reactive (Non Reactive)
[2024-07-23] MEDS: DEXAMETHASONE 4MG/ML 1ML VIAL 6 MG IV (10:00)
[2024-07-23] MEDS: AMLODIPINE 10MG TABLET 10 MG PO (10:03)
[2024-07-23] MEDS: LISINOPRIL 20MG TABLET 20 MG PO (10:03)
[2024-07-23] MEDS: DOCUSATE SODIUM 100 MG CAPSULE PO (10:03)
[2024-07-23] MEDS: APIXABAN 5MG TABLET 10 MG PO ×2 (10:03→21:57)
[2024-07-23] MEDS: BUMETANIDE 1MG/4ML VIAL 2 MG IV ×2 (10:03→17:38)
[2024-07-23] MEDS: REMDESIVIR 100 MG in 0.9 % SODIUM CHLORIDE 100 ML IV (10:39)
[2024-07-23 12:28] LABS: Anisocytosis 1+; Lymphocytes % 3 % (10-50); Monocytes % 6 % (2-9); Neutrophils % 91 % (42-76); Platelet Estimate Normal; Polychromasia 1+; Total Cells Counted 100
--- NOTE | 2024-07-23 16:11 | EXP.PN ---
Subjective *Date: 07/23/24 *Time: 16:11 Exam Data for Last 24 hours Vital signs and Labs for Last 24 Hours: Temp Pulse Resp BP Pulse Ox O2 Del Method O2 Flow Rate 98.1 F 90 22 108/69 L 91 L Vapotherm 25 07/23/24 12:00 07/23/24 14:00 07/23/24 14:00 07/23/24 14:00 07/23/24 14:00 07/23/24 15:31 07/23/24 15:31 FiO2 50 07/23/24 13:22 Laboratory Results - last 24 hr 07/21/24 19:34: Hepatitis C Antibody Non reactive 07/23/24 06:21: WBC 12.5 H D, RBC 3.17 L, Hgb 11.3 L, Hct 29.6 L, MCV 93.4, MCH 35.6 H, MCHC 38.2 H, RDW 16.7, Plt Count 339, MPV 9.5, Neut % (Auto) 85.2 H, Lymph % (Auto) 8.5 L, [place] % (Auto) 5.2, Eos % (Auto) 0.0 L, Baso % (Auto) 0.2, Neut # (Auto) 10.7 H, Lymph # (Auto) 1.1, [place] # (Auto) 0.7, Eos # (Auto) 0.0, Baso # (Auto) 0.0, Total Counted 100, Neutrophils % (Manual) 91 H, Lymphocytes % (Manual) 3 L, Monocytes % (Manual) 6, Platelet Estimate Normal, Polychromasia 1+, Anisocytosis 1+, D-Dimer 2.64 H, Sodium 132 L, Potassium 4.5, Chloride 102, Carbon Dioxide 27, Anion Gap 7.5, BUN 55 H D, Creatinine 1.30 H D, Estimated Creat Clear 72, Estimated GFR 55 L, Est GFR ( Amer) 66 D, Glucose 135 H, Calcium 8.7, Magnesium 2.2 D, Total Bilirubin 0.6, AST 39, ALT 37, Alkaline Phosphatase 69, C-Reactive Protein 104.4 H, Total Protein 6.6, Albumin 3.2 L, Globulin 3.4 H, Albumin/Globulin Ratio 0.9 L, Procalcitonin 0.096 I & O for Last 24 hours: Intake & Output 07/20/24 07/21/24 07/22/24 07/23/24 23:59 23:59 23:59 23:59 Intake Total 1.7 / 1.7 1989 1210 / 1210 Output Total 700 / 1100 2450 / 2450 Balance 1.7 / 1.7 1290 / 1240 -1240 / -1240 Weight 92.334 kg 93.89 kg 94.69 kg Microbiology Reports for the Last 24 Hours: Microbiology 07/22/24 00:23 Blood Blood Culture - Preliminary NO GROWTH AFTER 24 HOURS 07/22/24 00:23 Blood Blood Culture - Preliminary NO GROWTH AFTER 24 HOURS 07/21/24 21:19 Blood Blood Culture - Preliminary NO GROWTH AFTER 24 HOURS 07/21/24 21:19 Blood Blood Culture - Preliminary NO GROWTH AFTER 24 HOURS 07/22/24 05:26 Sputum - Expectorated Sputum Gram Stain - Final Constitutional Constitutional: no acute distress *Routine HEENT Exam Head: Present normocephalic Eye: Present EOMI and PERRL ENT: Present mucous membranes moist *Routine Neck Exam Neck: Present supple; Absent lymphadenopathy *Routine Respiratory Exam Respiratory: Present CTA bilaterally *Routine Cardiovascular Exam Cardiovascular: Present RRR *Routine Abdominal Exam Abdominal: Present soft and normoactive bowel sounds; Absent tenderness *Routine Extremities Exam Extremities: Absent cyanosis, clubbing or edema *Routine Skin Exam Skin: Present warm; Absent rash *Routine Neurological Exam Neurological: Present alert and oriented X3 Assessment and Plan *Assessment and plan (1) Pulmonary emboli: Status: Acute Category: Medical Code(s): I26.99 - Other pulmonary embolism without acute cor pulmonale (2) PNA (pneumonia): Status: Acute Category: Medical Code(s): J18.9 - Pneumonia, unspecified organism (3) COPD (chronic obstructive pulmonary disease): Status: Chronic Qualifiers: COPD type: unspecified COPD Qualified Code(s): J44.9 - Chronic obstructive pulmonary disease, unspecified Category: Medical Code(s): J44.9 - Chronic obstructive pulmonary disease, unspecified (4) Hyperlipidemia: Status: Chronic Qualifiers: Hyperlipidemia type: unspecified Qualified Code(s): E78.5 - Hyperlipidemia, unspecified Category: Medical Code(s): E78.5 - Hyperlipidemia, unspecified (5) Vitamin B12 deficiency: Status: Chronic Category: Medical Code(s): E53.8 - Deficiency of other specified B group vitamins (6) Vitamin D deficiency: Status: Chronic Category: Medical Code(s): E55.9 - Vitamin D deficiency, unspecified (7) Hypertension: Status: Chronic Qualifiers: Hypertension type: unspecified Qualified Code(s): I10 - Essential (primary) hypertension Category: Medical Code(s): I10 - Essential (primary) hypertension (8) Shortness of breath: Status: Acute Category: Medical Code(s): R06.02 - Shortness of breath (9) COVID: Status: Acute Category: Medical Code(s): U07.1 - COVID-19 Plan 68-year-old with past medical history of hypertension, hyperlipidemia, COPD, B12 deficiency,vitamin D deficiency. Patient presents complaining of 1 week SOB, QUEEN, pleuritic chest discomfort. CTA chest shows bilateral segmental PEs with right heart strain, bilateral pulmonary embolus. Nasopharyngeal COVID PCR positive, BNP 6060, troponin 0.16->0.14. Patient admitted for respiratory distress secondary to new COVID with acute PE with right heart strain, hypertensive emergency, possible pneumonia present on admission, possible new CHF exacerbation, and COPD exacerbation. Problems as listed below: #Acute hypoxic respiratory failure #Pulmonary emboli #Multifocal pneumonia #Suspected HFpEF exacerbation versus right ventricular strain #COVID-19 ? Patient tested positive for COVID-19, presented with 1 week onset of shortness of breath, pleuritic chest pain. ? CTA revealed acute appearing pulmonary emboli in the left upper lobe with mild right heart strain. Also revealed multifocal pneumonia associated with COVID-19. ? BNP elevated to 6060, initial WBC normal. Troponins peaked at 0.16. EKG without acute ischemic changes. ? ECHO revealed normal LV systolic function, increased LV wall thickness, RV apex hypokinesis suggestive of Bright sign. RVSP 50 to 55 mmHg. ? Continue cefepime, doxycycline pending cultures. ? Continue Decadron day 3/10, remdesivir day 2/5. ? Started Eliquis 10 mg twice daily today, day 3/10. Then transition to Eliquis 5 mg twice daily. Discontinue Lovenox. ? Continue IV Bumex 2 mg twice daily for now. Follow renal function. Started fluid restriction. ? Continue 25 L Vapotherm, wean as tolerated. Continues to desaturate with weaning today. ? Follow-up sputum, blood cultures. Follow-up MRSA screen. ? Pulmonology and cardiology assisting with care. No plans for EKOS per cardiology. ? Follow-up BNP tomorrow. #Hypertensive urgency ? Initial blood pressures were 200s over 140s, started on nicardipine drip with good response. ? Continue home lisinopril 20 mg p.o. daily. Increase home amlodipine from 2.5 to 10 mg p.o. daily. #Hyperlipidemia - Atorvastatin 40 mg p.o. daily. Full code DVT prophylaxis: Sarah
[2024-07-23] MEDS: ATORVASTATIN 40MG TABLET 40 MG PO (21:57)
[2024-07-24] VITALS (19 sets, daily range): BP systolic 105–157; BP diastolic 56–93; PULSE 80–104; RESP 16–25; TEMP 36.5–36.7; O2SAT 90–94; BMI 29.9
[2024-07-24] MEDS: DOXYCYCLINE HYCL 100 MG TABLET PO ×3 (00:18→23:58)
[2024-07-24] MEDS: CEFEPIME HCL 2 GM in 0.9 % SODIUM CHLORIDE 100 ML IV ×3 (00:18→17:03)
--- NOTE | 2024-07-24 04:02 | PC.NURSE ---
Pt rested throughout shift, no c/o or needs voiced regarding pain or discomfort.
[2024-07-24] MEDS: FLUTICASONE/UMECLIDIN/VILANTER 100/62.5/25MCG INHALER 1 PUFF IH (07:08)
[2024-07-24 08:30] LABS: Albumin Level 3.3 g/dl (3.5-5.0); Chloride 103 mmol/L (98-107); Potassium 3.8 mmoL/L (3.5-5.1); Sodium 135 mmol/L (136-145)
[2024-07-24 08:32] LABS: Blood Urea Nitrogen 56 mg/dl (9-20); Creatinine Clearance Estimated 78 mL/min (50-200); Estimated Glomerular Filt Rate 60 ml/min (>60); GFR (African American) 73 ML/MIN (>60)
--- NOTE | 2024-07-24 08:32 | EXP.PHA.PN ---
Subjective *Date: 07/24/24 *Time: 08:32 Medical Exam Vital signs and Labs for Last 24 Hours: Vital Signs Temp Pulse Pulse Resp BP BP Pulse Ox 07/24/24 08:00 94 H 24 113/79 92 L 07/24/24 07:09 93 L 07/24/24 06:28 07/24/24 05:37 90 22 141/80 H 90 L 07/24/24 04:38 07/24/24 04:00 80 07/24/24 04:00 87 22 122/88 93 L 07/24/24 03:55 07/24/24 03:00 07/24/24 02:15 93 L 07/24/24 02:00 82 22 148/91 H 07/24/24 01:00 07/24/24 00:00 83 07/24/24 00:00 83 22 144/87 H 93 L 07/24/24 00:00 82 07/24/24 00:00 98.1 F 07/24/24 00:00 85 22 157/75 H 94 L 07/23/24 23:00 07/23/24 22:00 113 H 22 130/98 H 07/23/24 22:00 113 H 22 130/98 H 95 07/23/24 20:00 07/23/24 20:00 97 H 22 126/62 93 L 07/23/24 20:00 100 H 07/23/24 20:00 98.0 F 07/23/24 19:15 07/23/24 18:23 92 L 07/23/24 18:00 93 H 21 122/78 93 L 07/23/24 17:45 82 93 L 07/23/24 17:40 07/23/24 16:00 96 H 129/82 93 L 07/23/24 15:31 07/23/24 14:00 90 22 91 L 07/23/24 14:00 90 22 108/69 L 91 L 07/23/24 13:40 07/23/24 13:22 95 07/23/24 13:00 132/85 07/23/24 13:00 99 H 24 94 L 07/23/24 12:03 90 07/23/24 12:01 97 H 24 94 L 07/23/24 12:01 118/78 07/23/24 12:00 98.1 F 07/23/24 12:00 96 H 27 H 92 L 07/23/24 11:53 07/23/24 11:00 85 18 93 L 07/23/24 11:00 150/94 H 07/23/24 10:12 94 L 07/23/24 10:00 77 23 95 07/23/24 10:00 133/87 07/23/24 09:00 94 L 07/23/24 09:00 07/23/24 09:00 141/85 H 07/23/24 09:00 84 25 H 93 L O2 Del Method O2 Flow Rate FiO2 07/24/24 08:00 Vapotherm 25 40 07/24/24 07:09 Vapotherm 20 40 07/24/24 06:28 Vapotherm 25 07/24/24 05:37 Vapotherm 25 40 07/24/24 04:38 Vapotherm 07/24/24 04:00 07/24/24 04:00 Vapotherm 25 40 07/24/24 03:55 25 40 07/24/24 03:00 Vapotherm 25 07/24/24 02:15 Vapotherm 20 40 07/24/24 02:00 Vapotherm 25 40 07/24/24 01:00 Vapotherm 25 07/24/24 00:00 07/24/24 00:00 Vapotherm 25 40 07/24/24 00:00 07/24/24 00:00 07/24/24 00:00 Vapotherm 40 07/23/24 23:00 Vapotherm 50 07/23/24 22:00 Vapotherm 50 07/23/24 22:00 Vapotherm 50 07/23/24 20:00 Vapotherm 50 07/23/24 20:00 Vapotherm 50 07/23/24 20:00 07/23/24 20:00 07/23/24 19:15 Vapotherm 25 07/23/24 18:23 Vapotherm 25 40 07/23/24 18:00 Vapotherm 25 40 07/23/24 17:45 Vapotherm 25 40 07/23/24 17:40 Vapotherm 25 07/23/24 16:00 Vapotherm 25 40 07/23/24 15:31 Vapotherm 25 07/23/24 14:00 07/23/24 14:00 Vapotherm 25 07/23/24 13:40 Vapotherm 25 07/23/24 13:22 Vapotherm 25 50 07/23/24 13:00 07/23/24 13:00 07/23/24 12:03 07/23/24 12:01 07/23/24 12:01 07/23/24 12:00 07/23/24 12:00 07/23/24 11:53 Vapotherm 25 07/23/24 11:00 07/23/24 11:00 07/23/24 10:12 Vapotherm 25 50 07/23/24 10:00 07/23/24 10:00 07/23/24 09:00 Vapotherm 25 50 07/23/24 09:00 Vapotherm 25 07/23/24 09:00 07/23/24 09:00 Intake and Output 07/23/24 07/24/24 07/24/24 23:59 07:59 15:59 Intake Total 300 / 1989 480 / 480 Output Total 252 / 5975 220 / 2200 Balance -2225 / -3985 -1720 / -1720 Intake: Intake, Oral Amount 300 / 1790 480 / 480 Output: Output, Urine Amount 2525 / 5975 2200 / 2200 Other: Number of Unmeasured Voids 0 Weight 94.69 kg Patient Weight 07/24/24 23:59 Weight 94.69 kg Laboratory Results - last 24 hr 07/23/24 06:21: Total Counted 100, Neutrophils % (Manual) 91 H, Lymphocytes % (Manual) 3 L, Monocytes % (Manual) 6, Platelet Estimate Normal, Polychromasia 1+, Anisocytosis 1+ I & O for Labs for Last 24 Hours: Intake & Output 07/21/24 07/22/24 07/23/24 07/24/24 23:59 23:59 23:59 23:59 Intake Total 1.7 / 1.7 1989 151 / 1989 480 / 480 Output Total 700 / 1100 4975 / 5975 220 / 2200 Balance 1.7 / 1.7 1290 / 1240 -3465 / -3985 -1720 / -1720 Weight 92.334 kg 93.89 kg 94.69 kg 94.69 kg Microbiology Reports for the Last 24 Hours: Microbiology 07/22/24 00:23 Blood Blood Culture - Preliminary NO GROWTH AFTER 48 HOURS 07/22/24 00:23 Blood Blood Culture - Preliminary NO GROWTH AFTER 48 HOURS 07/21/24 21:19 Blood Blood Culture - Preliminary NO GROWTH AFTER 48 HOURS 07/21/24 21:19 Blood Blood Culture - Preliminary NO GROWTH AFTER 48 HOURS The patient's infection will respond to the chosen ABx?: Yes Is the patient receiving the right drug, dose, and route?: Yes Could a more targeted ABx be ordered?: No
[2024-07-24 08:33] LABS: Alanine Aminotransferase 36 U/L (12-78); Alkaline Phosphatase 63 U/L (38-126); Anion Gap 6.8 mEq/L (5-15); Aspartate Amino Transferase 36 U/L (17-59); Bilirubin,Total 0.6 mg/dl (0.2-1.3); Calcium 8.6 mg/dl (8.4-10.2); Carbon Dioxide 29 mmol/L (22.0-30.0); Globulin 3.2 g/dL (1.3-3.2); Glucose 118 mg/dl (74-100); Magnesium 2.3 mg/dl (1.6-2.3); Total Protein,Serum 6.5 g/dl (6.3-8.2)
[2024-07-24 08:36] LABS: NT Pro Brain Natriuretic Pep. 576 pg/mL (0-125)
[2024-07-24 08:39] LABS: Hematocrit 31.1 % (42.0-52.0); Hemoglobin 11.9 g/dL (14.1-18.0); Mean Corpuscular HGB Conc 38.3 g/dL (31.8-35.4); Mean Corpuscular Hemoglobin 36.2 pg (27.0-31.2); Mean Corpuscular Volume 94.5 fl (80-94); Red Blood Count 3.29 M/mm3 (4.60-6.20); White Blood Count 13.5 K/mm3 (4.8-10.8)
[2024-07-24 08:40] LABS: Basophils % 0.1 % (0.1-2.0); Lymphocytes # 1.1 K/mm3 (0.7-4.5); Lymphocytes % 8.2 % (10-50); Mean Platelet Volume 9.4 fl (7.4-10.4); Monocytes # 1.3 K/mm3 (0.1-1.0); Monocytes % 9.8 % (1.7-9.3); Neutrophils # 10.9 K/mm3 (1.8-7.8); Platelet Count 378 K/mm3 (142-424)
[2024-07-24] MEDS: APIXABAN 5MG TABLET 10 MG PO ×2 (09:56→20:01)
[2024-07-24] MEDS: LISINOPRIL 20MG TABLET 20 MG PO (09:57)
[2024-07-24] MEDS: DOCUSATE SODIUM 100 MG CAPSULE PO (09:57)
[2024-07-24] MEDS: AMLODIPINE 10MG TABLET 10 MG PO (09:57)
[2024-07-24] MEDS: DEXAMETHASONE 4MG/ML 1ML VIAL 6 MG IV (09:58)
[2024-07-24] MEDS: BUMETANIDE 1MG/4ML VIAL 2 MG IV ×2 (10:01→17:02)
[2024-07-24] MEDS: REMDESIVIR 100 MG in 0.9 % SODIUM CHLORIDE 100 ML IV (10:01)
[2024-07-24 10:10] LABS: Magnesium 2.3 mg/dl (1.6-2.3)
--- NOTE | 2024-07-24 15:50 | P.PN_ITS ---
Subjective *Date: 07/24/24 *Time: 18:43 Interval history: Patient is doing okay today, continues to require 20 L via Vapotherm. No chest pain. Continues to have dyspnea on exertion. Exam Data for Last 24 hours Vital signs and Labs for Last 24 Hours: Temp Pulse Resp BP Pulse Ox O2 Del Method O2 Flow Rate 98.1 F 100 H 17 108/56 L 94 L Vapotherm 20 07/24/24 00:00 07/24/24 14:14 07/24/24 14:14 07/24/24 14:14 07/24/24 14:14 07/24/24 15:00 07/24/24 15:00 FiO2 35 07/24/24 14:14 Laboratory Results - last 24 hr 07/24/24 07:21: WBC 13.5 H, RBC 3.29 L, Hgb 11.9 L, Hct 31.1 L, MCV 94.5 H, MCH 36.2 H, MCHC 38.3 H, RDW 18.0 H, Plt Count 378, MPV 9.4, Neut % (Auto) 81.0 H, Lymph % (Auto) 8.2 L, [place] % (Auto) 9.8 H, Eos % (Auto) 0.0 L, Baso % (Auto) 0.1, Neut # (Auto) 10.9 H, Lymph # (Auto) 1.1, [place] # (Auto) 1.3 H, Eos # (Auto) 0.0, Baso # (Auto) 0.0, Sodium 135 L, Potassium 3.8, Chloride 103, Carbon Dioxide 29, Anion Gap 6.8, BUN 56 H, Creatinine 1.20, Estimated Creat Clear 78, Estimated GFR 60, Est GFR ( Amer) 73, Glucose 118 H, Calcium 8.6, Magnesium 2.3 07/24/24 07:21: Magnesium 2.3, Total Bilirubin 0.6, AST 36, ALT 36, Alkaline Phosphatase 63, NT-Pro-B Natriuret Pep 576 H, Total Protein 6.5, Albumin 3.3 L, Globulin 3.2, Albumin/Globulin Ratio 1.0 L I & O for Last 24 hours: Intake & Output 07/21/24 07/22/24 07/23/24 07/24/24 23:59 23:59 23:59 23:59 Intake Total 1.7 / 08.09 1510 / 1989 830 / 830 Output Total 700 / 1100 4975 / 5975 4075 / 4075 Balance 1. / .7 1290 / 1240 -3465 / -3985 -3245 / -3245 Weight 92.334 kg 93.89 kg 94.69 kg 94.69 kg Microbiology Reports for the Last 24 Hours: Microbiology 07/22/24 05:26 Sputum - Expectorated Sputum Gram Stain - Final 07/22/24 05:26 Sputum - Expectorated Sputum Sputum Culture - Final 07/22/24 17:13 Nose - Nasal MRSA Culture - Final 07/22/24 00:23 Blood Blood Culture - Preliminary NO GROWTH AFTER 48 HOURS 07/22/24 00:23 Blood Blood Culture - Preliminary NO GROWTH AFTER 48 HOURS 07/21/24 21:19 Blood Blood Culture - Preliminary NO GROWTH AFTER 48 HOURS 07/21/24 21:19 Blood Blood Culture - Preliminary NO GROWTH AFTER 48 HOURS Constitutional Constitutional: no acute distress *Routine HEENT Exam Head: Present normocephalic Eye: Present EOMI and PERRL ENT: Present mucous membranes moist *Routine Neck Exam Neck: Present supple; Absent lymphadenopathy *Routine Respiratory Exam Respiratory: Present CTA bilaterally *Routine Cardiovascular Exam Cardiovascular: Present RRR *Routine Abdominal Exam Abdominal: Present soft and normoactive bowel sounds; Absent tenderness *Routine Extremities Exam Extremities: Absent cyanosis, clubbing or edema *Routine Skin Exam Skin: Present warm; Absent rash *Routine Neurological Exam Neurological: Present alert and oriented X3 Assessment and Plan *Assessment and plan (1) Pulmonary emboli: Status: Acute Category: Medical Code(s): I26.99 - Other pulmonary embolism without acute cor pulmonale (2) PNA (pneumonia): Status: Acute Category: Medical Code(s): J18.9 - Pneumonia, unspecified organism (3) COPD (chronic obstructive pulmonary disease): Status: Chronic Qualifiers: COPD type: unspecified COPD Qualified Code(s): J44.9 - Chronic obstructive pulmonary disease, unspecified Category: Medical Code(s): J44.9 - Chronic obstructive pulmonary disease, unspecified (4) Hyperlipidemia: Status: Chronic Qualifiers: Hyperlipidemia type: unspecified Qualified Code(s): E78.5 - Hyperlipidemia, unspecified Category: Medical Code(s): E78.5 - Hyperlipidemia, unspecified (5) Vitamin B12 deficiency: Status: Chronic Category: Medical Code(s): E53.8 - Deficiency of other specified B group vitamins (6) Vitamin D deficiency: Status: Chronic Category: Medical Code(s): E55.9 - Vitamin D deficiency, unspecified (7) Hypertension: Status: Chronic Qualifiers: Hypertension type: unspecified Qualified Code(s): I10 - Essential (primary) hypertension Category: Medical Code(s): I10 - Essential (primary) hypertension (8) Shortness of breath: Status: Acute Category: Medical Code(s): R06.02 - Shortness of breath (9) COVID: Status: Acute Category: Medical Code(s): U07.1 - COVID-19 Plan Home p.o. 68-year-old with past medical history of hypertension, hyperlipidemia, COPD, B12 deficiency,vitamin D deficiency. Patient presents complaining of 1 week SOB, QUEEN, pleuritic chest discomfort. CTA chest shows bilateral segmental PEs with right heart strain, bilateral pulmonary embolus. Nasopharyngeal COVID PCR positive, BNP 6060, troponin 0.16->0.14. Patient admitted for respiratory distress secondary to new COVID with acute PE with right heart strain, hypertensive emergency, possible pneumonia present on admission, possible new C HF exacerbation, and COPD exacerbation. Problems as listed below: #Acute hypoxic respiratory failure #Pulmonary emboli #Multifocal pneumonia #Suspected HFpEF exacerbation versus right ventricular strain #COVID-19 ? Patient tested positive for COVID-19, presented with 1 week onset of shortness of breath, pleuritic chest pain. ? CTA revealed acute appearing pulmonary emboli in the left upper lobe with mild right heart strain. Also revealed multifocal pneumonia associated with COVID- 19. ? BNP elevated to 6060, initial WBC normal. Troponins peaked at 0.16. EKG without acute ischemic changes. ? ECHO revealed normal LV systolic function, increased LV wall thickness, RV apex hypokinesis suggestive of Bright sign. RVSP 50 to 55 mmHg. ? Continue cefepime, doxycycline day 3/5. Sputum cultures are normal, MRSA screen negative. Will continue to treat with antibiotics given high risk of clinical decompensation. ? Continue Decadron day 4/10, remdesivir day 3/5. ? Started Eliquis 10 mg twice daily today, day 4/10 of therapeutic anticoagulation. Then transition to Eliquis 5 mg twice daily. Discontinued Lovenox. ? Continue IV Bumex 2 mg twice daily for now. Has had net -5.7 L so far with improvement in creatinine and BNP today, and oxygen requirement. ? Weaned to 20 L Vapotherm on FiO2 35%, wean as tolerated. Continue to wean as tolerated. ? Pulmonology and cardiology assisting with care. No plans for EKOS per cardiology. #Hypertensive urgency ? Initial blood pressures were 200s over 140s, started on nicardipine drip with good response. ? Continue home lisinopril 20 mg p.o. daily. Increased home amlodipine from 2.5 to 10 mg p.o. daily. #Hyperlipidemia - Atorvastatin 40 mg p.o. daily. Full code DVT prophylaxis: Eliquis
--- NOTE | 2024-07-24 17:49 | PC.NURSE ---
pt has appeared to rest well in his room watching tv. pt noted to occasionally appear asleep. pt awakens easily and is a/o x 4. nad noted. pt currently on vapotherm 20l 35%. weaning pt as tolerated. pt sats maintain 90-92 on these settings. o2 sats decrease with activity. pt declined getting up to the chair this shift. instead opting to sit on the side of the bed. pt has iv in ac that will frequently beep with occlusion. offered to start new iv for patient, pt declined.
[2024-07-24] MEDS: ATORVASTATIN 40MG TABLET 40 MG PO (20:01)
[2024-07-25] VITALS (14 sets, daily range): BP systolic 90–168; BP diastolic 50–100; PULSE 70–91; RESP 16–27; TEMP 36.4–36.6; O2SAT 90–97; BMI 28.5
[2024-07-25] MEDS: CEFEPIME HCL 2 GM in 0.9 % SODIUM CHLORIDE 100 ML IV ×3 (01:31→16:05)
[2024-07-25] MEDS: FLUTICASONE/UMECLIDIN/VILANTER 100/62.5/25MCG INHALER 1 PUFF IH (06:02)
[2024-07-25 06:58] LABS: Albumin Level 3.3 g/dl (3.5-5.0); Chloride 103 mmol/L (98-107); Sodium 135 mmol/L (136-145)
[2024-07-25 07:01] LABS: Alanine Aminotransferase 37 U/L (12-78); Albumin/Globulin Ratio 1.1 (1.1-1.8); Alkaline Phosphatase 61 U/L (38-126); Aspartate Amino Transferase 37 U/L (17-59); Bilirubin,Total 0.5 mg/dl (0.2-1.3); Blood Urea Nitrogen 61 mg/dl (9-20); Calcium 8.6 mg/dl (8.4-10.2); Carbon Dioxide 30 mmol/L (22.0-30.0); Creatinine Clearance Estimated 74 mL/min (50-200); Estimated Glomerular Filt Rate 60 ml/min (>60); GFR (African American) 73 ML/MIN (>60); Glucose 97 mg/dl (74-100); Magnesium 2.3 mg/dl (1.6-2.3); Total Protein,Serum 6.3 g/dl (6.3-8.2)
[2024-07-25 07:44] LABS: Basophils % 0.2 % (0.1-2.0); Hematocrit 34.7 % (42.0-52.0); Hemoglobin 12.1 g/dL (14.1-18.0); Lymphocytes % 14.2 % (10-50); Mean Corpuscular HGB Conc 34.9 g/dL (31.8-35.4); Mean Corpuscular Hemoglobin 32.4 pg (27.0-31.2); Mean Platelet Volume 9.1 fl (7.4-10.4); Monocytes % 11.2 % (1.7-9.3); Neutrophils % 73.3 % (37.0-80.0); Platelet Count 382 K/mm3 (142-424); Red Blood Count 3.73 M/mm3 (4.60-6.20); Red Cell Distribution Width 16.6 % (11.5-17.5); White Blood Count 12.2 K/mm3 (4.8-10.8)
[2024-07-25 07:45] LABS: Lymphocytes # 1.7 K/mm3 (0.7-4.5); Monocytes # 1.4 K/mm3 (0.1-1.0); Neutrophils # 8.9 K/mm3 (1.8-7.8)
--- NOTE | 2024-07-25 08:42 | P.PN_ITS ---
Subjective *Date: 07/25/24 *Time: 08:42 Medical Exam Vital signs and Labs for Last 24 Hours: Vital Signs Temp Pulse Pulse Resp BP Pulse Ox O2 Del Method 07/25/24 07:00 Vapotherm 07/25/24 06:03 90 L Vapotherm 07/25/24 06:00 82 23 144/100 H 90 L Vapotherm 07/25/24 05:00 Vapotherm 07/25/24 04:00 70 07/25/24 04:00 72 92 L Vapotherm 07/25/24 04:00 97.7 F 07/25/24 03:00 Vapotherm 07/25/24 02:00 85 27 H 90/50 L 94 L Vapotherm 07/25/24 01:00 Vapotherm 07/25/24 00:00 90 07/25/24 00:00 97.7 F 07/25/24 00:00 89 16 107/69 L 90 L Vapotherm 07/24/24 23:00 Vapotherm 07/24/24 22:00 82 25 H 105/77 L 92 L Vapotherm 07/24/24 20:45 Vapotherm 07/24/24 20:00 97.7 F 07/24/24 20:00 95 H 07/24/24 20:00 97.7 F 85 24 129/74 91 L Vapotherm 07/24/24 20:00 86 91 L Vapotherm 07/24/24 19:00 Vapotherm 07/24/24 18:33 93 L Vapotherm 07/24/24 18:00 104 H 20 120/89 94 L Vapotherm 07/24/24 17:35 Vapotherm 07/24/24 17:00 95 H 94 L Vapotherm 07/24/24 16:00 90 07/24/24 16:00 98 F 07/24/24 16:00 91 H 24 133/77 94 L Vapotherm 07/24/24 15:00 Vapotherm 07/24/24 14:14 100 H 17 108/56 L 94 L Vapotherm 07/24/24 13:40 Vapotherm 07/24/24 12:18 90 19 117/84 92 L Vapotherm 07/24/24 12:00 80 07/24/24 11:39 Vapotherm 07/24/24 10:28 94 L Vapotherm 07/24/24 10:00 85 16 121/93 H 91 L Vapotherm 07/24/24 09:50 Vapotherm 07/24/24 09:40 84 91 L Vapotherm O2 Flow Rate FiO2 07/25/24 07:00 20 07/25/24 06:03 20 40 07/25/24 06:00 20 40 07/25/24 05:00 20 07/25/24 04:00 07/25/24 04:00 20 40 07/25/24 04:00 07/25/24 03:00 20 07/25/24 02:00 20 40 07/25/24 01:00 20 07/25/24 00:00 07/25/24 00:00 2 07/25/24 00:00 20 30 07/24/24 23:00 20 07/24/24 22:00 20 30 07/24/24 20:45 20 07/24/24 20:00 07/24/24 20:00 07/24/24 20:00 20 30 07/24/24 20:00 20 30 07/24/24 19:00 20 07/24/24 18:33 20 30 07/24/24 18:00 20 35 07/24/24 17:35 20 07/24/24 17:00 20 35 07/24/24 16:00 07/24/24 16:00 07/24/24 16:00 20 35 07/24/24 15:00 20 07/24/24 14:14 20 35 07/24/24 13:40 20 07/24/24 12:18 20 35 07/24/24 12:00 07/24/24 11:39 20 07/24/24 10:28 20 40 07/24/24 10:00 20 40 07/24/24 09:50 20 07/24/24 09:40 20 40 Intake and Output 07/24/24 07/25/24 07/25/24 23:59 07:59 15:59 Intake Total 300 / 1430 240 / 240 Output Total 1900 / 6535 600 / 600 Balance -1600 / -5105 -360 / -360 Intake: Intake, Oral Amount 300 / 1230 240 / 240 Output: Output, Urine Amount 1900 / 6535 600 / 600 Other: Number of Unmeasured Voids 0 Weight 90.446 kg Patient Weight 07/25/24 23:59 Weight 90.446 kg Laboratory Results - last 24 hr 07/24/24 07:21: Magnesium 2.3 07/25/24 06:22: WBC 12.2 H, RBC 3.73 L, Hgb 12.1 L, Hct 34.7 L, MCV 93.0, MCH 32.4 H, MCHC 34.9, RDW 16.6, Plt Count 382, MPV 9.1, Neut % (Auto) 73.3, Lymph % (Auto) 14.2, [place] % (Auto) 11.2 H, Eos % (Auto) 0.0 L, Baso % (Auto) 0.2, Neut # (Auto) 8.9 H, Lymph # (Auto) 1.7, [place] # (Auto) 1.4 H, Eos # (Auto) 0.0, Baso # (Auto) 0.0, Sodium 135 L, Potassium 4.0, Chloride 103, Carbon Dioxide 30, Anion Gap 6.0, BUN 61 H, Creatinine 1.20, Estimated Creat Clear 74, Estimated GFR 60, Est GFR ( Amer) 73, Glucose 97, Calcium 8.6, Magnesium 2.3, Total Bilirubin 0.5, AST 37, ALT 37, Alkaline Phosphatase 61, Total Protein 6.3, Albumin 3.3 L, Globulin 3.0, Albumin/Globulin Ratio 1.1 I & O for Labs for Last 24 Hours: Intake & Output 07/22/24 07/23/24 07/24/24 07/25/24 23:59 23:59 23:59 23:59 Intake Total 1989 1510 / 1989 1430 / 1430 240 / 240 Output Total 700 / 1100 4975 / 5975 6135 / 6535 600 / 600 Balance 1290 / 1240 -3465 / -3985 -7335 / -5105 -360 / -360 Weight 93.89 kg 94.69 kg 94.69 kg 90.446 kg Microbiology Reports for the Last 24 Hours: Microbiology 07/22/24 05:26 Sputum - Expectorated Sputum Gram Stain - Final 07/22/24 05:26 Sputum - Expectorated Sputum Sputum Culture - Final 07/22/24 17:13 Nose - Nasal MRSA Culture - Final The patient's infection will respond to the chosen ABx?: Yes (SPUTUM = NORMAL CHATO, BLOOD CX NO GROWTH, AFEBRILE OVER 24 HR.) Is the patient receiving the right drug, dose, and route?: Yes Could a more targeted ABx be ordered?: No How long ABx needed (days)?: 7
[2024-07-25] MEDS: APIXABAN 5MG TABLET 10 MG PO ×2 (08:55→21:06)
[2024-07-25] MEDS: AMLODIPINE 10MG TABLET 10 MG PO (08:55)
[2024-07-25] MEDS: DOCUSATE SODIUM 100 MG CAPSULE PO (08:55)
[2024-07-25] MEDS: DEXAMETHASONE 4MG/ML 1ML VIAL 6 MG IV (08:55)
[2024-07-25] MEDS: BUMETANIDE 1MG/4ML VIAL 2 MG IV ×2 (08:55→16:05)
[2024-07-25] MEDS: LISINOPRIL 20MG TABLET 20 MG PO (08:55)
[2024-07-25] MEDS: REMDESIVIR 100 MG in 0.9 % SODIUM CHLORIDE 100 ML IV (10:02)
--- NOTE | 2024-07-25 11:43 | P.PN_ITS ---
Subjective Subjective Date: 07/25/24 Time: 09:00 Interval history: No CV changes over the weekend. Pt states he is breathing better but he remains on Vapo therm at 20L/min and 40% O2. Exam Data for Last 24 hours Vital signs and Labs for Last 24 Hours: Temp Pulse Resp BP Pulse Ox O2 Del Method O2 Flow Rate 97.6 F 91 H 22 113/74 91 L Vapotherm 20 07/25/24 08:00 07/25/24 10:00 07/25/24 10:00 07/25/24 10:00 07/25/24 10:00 07/25/24 10:00 07/25/24 10:00 FiO2 40 07/25/24 10:00 Laboratory Results - last 24 hr 07/25/24 06:22: WBC 12.2 H, RBC 3.73 L, Hgb 12.1 L, Hct 34.7 L, MCV 93.0, MCH 32.4 H, MCHC 34.9, RDW 16.6, Plt Count 382, MPV 9.1, Neut % (Auto) 73.3, Lymph % (Auto) 14.2, [place] % (Auto) 11.2 H, Eos % (Auto) 0.0 L, Baso % (Auto) 0.2, Neut # (Auto) 8.9 H, Lymph # (Auto) 1.7, [place] # (Auto) 1.4 H, Eos # (Auto) 0.0, Baso # (Auto) 0.0, Sodium 135 L, Potassium 4.0, Chloride 103, Carbon Dioxide 30, Anion Gap 6.0, BUN 61 H, Creatinine 1.20, Estimated Creat Clear 74, Estimated GFR 60, Est GFR ( Amer) 73, Glucose 97, Calcium 8.6, Magnesium 2.3, Total Bilirubin 0.5, AST 37, ALT 37, Alkaline Phosphatase 61, Total Protein 6.3, Albumin 3.3 L, Globulin 3.0, Albumin/Globulin Ratio 1.1 I & O for Last 24 hours: Intake & Output 07/22/24 07/23/24 07/24/24 07/25/24 23:59 23:59 23:59 23:59 Intake Total 1989 / 2339 1510 / 1989 1430 / 1430 600 / 600 Output Total 700 / 1100 9418 / 5990 6135 / 6535 600 / 600 Balance 1290 / 1240 -3465 / -3985 -4705 / -5105 0 / 0 Weight 206 lb 15.872 oz 208 lb 12.091 oz 208 lb 12.091 oz 199 lb 6.4 oz Microbiology Reports for the Last 24 Hours: Microbiology 07/22/24 05:26 Sputum - Expectorated Sputum Gram Stain - Final 07/22/24 05:26 Sputum - Expectorated Sputum Sputum Culture - Final 07/22/24 17:13 Nose - Nasal MRSA Culture - Final Constitutional Constitutional: no acute distress and cooperative *Routine HEENT Exam Eye: Present PERRL *Routine Respiratory Exam Respiratory: Present CTA bilaterally; Absent accessory muscle use, wheezes or crackles *Routine Cardiovascular Exam Cardiovascular: Present RRR, Normal S1 and Normal S2; Absent murmur, gallop or rubs *Routine Abdominal Exam Abdominal: Present soft; Absent tenderness *Routine Extremities Exam Extremities: Present pulses intact; Absent cyanosis or edema *Routine Skin Exam Skin: Present intact; Absent erythema or wounds *Routine Neurological Exam Neurological: Present alert and oriented X3 Routine Psychiatric Exam Psychiatric: Present cooperative Progress Note: A&P Assessment and plan (1) Pulmonary emboli: Status: Acute (2) PNA (pneumonia): Status: Acute (3) COPD (chronic obstructive pulmonary disease): Status: Chronic (4) Hyperlipidemia: Status: Chronic (5) Vitamin B12 deficiency: Status: Chronic (6) Vitamin D deficiency: Status: Chronic (7) Hypertension: Status: Chronic (8) Shortness of breath: Status: Acute (9) COVID: Status: Acute Assessment and Plan Assessment and Plan for All Diagnoses:: Left upper lobe acute pulmonary embolism -Appears provoked secondary to COVID -RV dilation noted on ECHO but felt more likely due to severe COVID. Pt has small clot burden on CT. -Continue Eliquis - No indication for procedural intervention - Tx dose Eliquis x6 mo - 1 year. We can f/u on this with him in the office. COVID PNA - per Pulmonology CV stable, will sign off. Pt needs office f/u with us 1-2 weeks post discharge.
[2024-07-25] MEDS: DOXYCYCLINE HYCL 100 MG TABLET PO (11:56)
--- NOTE | 2024-07-25 18:10 | PC.NURSE ---
HE HAS DONE WELL THIS SHIFT. LUNG SOUNDS ARE DIMINISHED WITH EXPIRATORY WHEEZING. VSS. HE WAS WEANED DOWN TO 5L NASAL CANNULA AND IS TOLERATING IT WELL WITH SATS IN THE MID 'S. PT STATES THAT HE FEELS MUCH BETTER TODAY.
[2024-07-25] MEDS: ATORVASTATIN 40MG TABLET 40 MG PO (21:06)
--- NOTE | 2024-07-25 21:12 | P.PN_ITS ---
Subjective *Date: 07/25/24 *Time: 21:12 Interval history: Patient is progressing well, weaned to 5 L nasal cannula from 20 L Vapotherm. Denies chest pain, shortness of breath. In good spirits, pleasant. Exam Data for Last 24 hours Vital signs and Labs for Last 24 Hours: Temp Pulse Resp BP Pulse Ox O2 Del Method O2 Flow Rate 97.7 F 89 20 112/77 97 Nasal Cannula 5 07/25/24 19:38 07/25/24 19:38 07/25/24 19:38 07/25/24 19:38 07/25/24 19:38 07/25/24 19:38 07/25/24 19:38 FiO2 40 07/25/24 10:00 Laboratory Results - last 24 hr 07/25/24 06:22: WBC 12.2 H, RBC 3.73 L, Hgb 12.1 L, Hct 34.7 L, MCV 93.0, MCH 32.4 H, MCHC 34.9, RDW 16.6, Plt Count 382, MPV 9.1, Neut % (Auto) 73.3, Lymph % (Auto) 14.2, [place] % (Auto) 11.2 H, Eos % (Auto) 0.0 L, Baso % (Auto) 0.2, Neut # (Auto) 8.9 H, Lymph # (Auto) 1.7, [place] # (Auto) 1.4 H, Eos # (Auto) 0.0, Baso # (Auto) 0.0, Sodium 135 L, Potassium 4.0, Chloride 103, Carbon Dioxide 30, Anion Gap 6.0, BUN 61 H, Creatinine 1.20, Estimated Creat Clear 74, Estimated GFR 60, Est GFR ( Amer) 73, Glucose 97, Calcium 8.6, Magnesium 2.3, Total Bilirubin 0.5, AST 37, ALT 37, Alkaline Phosphatase 61, Total Protein 6.3, Albumin 3.3 L, Globulin 3.0, Albumin/Globulin Ratio 1.1 I & O for Last 24 hours: Intake & Output 07/22/24 07/23/24 07/24/24 07/25/24 23:59 23:59 23:59 23:59 Intake Total 1989 / 2339 1510 / 1989 1430 / 1430 1320 / 1320 Output Total 700 / 1100 2163 / 2427 3845 / 0707 2350 / 2350 Balance 1290 / 1240 -3465 / -3985 -4705 / -5105 -1030 / -1030 Weight 93.89 kg 94.69 kg 94.69 kg 90.446 kg Constitutional Constitutional: no acute distress *Routine HEENT Exam Head: Present normocephalic Eye: Present EOMI and PERRL ENT: Present mucous membranes moist *Routine Neck Exam Neck: Present supple; Absent lymphadenopathy *Routine Respiratory Exam Respiratory: Present CTA bilaterally *Routine Cardiovascular Exam Cardiovascular: Present RRR *Routine Abdominal Exam Abdominal: Present soft and normoactive bowel sounds; Absent tenderness *Routine Extremities Exam Extremities: Absent cyanosis, clubbing or edema *Routine Skin Exam Skin: Present warm; Absent rash *Routine Neurological Exam Neurological: Present alert and oriented X3 Assessment and Plan *Assessment and plan (1) Pulmonary emboli: Status: Acute Category: Medical Code(s): I26.99 - Other pulmonary embolism without acute cor pulmonale (2) PNA (pneumonia): Status: Acute Category: Medical Code(s): J18.9 - Pneumonia, unspecified organism (3) COPD (chronic obstructive pulmonary disease): Status: Chronic Qualifiers: COPD type: unspecified COPD Qualified Code(s): J44.9 - Chronic obstructive pulmonary disease, unspecified Category: Medical Code(s): J44.9 - Chronic obstructive pulmonary disease, unspecified (4) Hyperlipidemia: Status: Chronic Qualifiers: Hyperlipidemia type: unspecified Qualified Code(s): E78.5 - Hyperlipidemia, unspecified Category: Medical Code(s): E78.5 - Hyperlipidemia, unspecified (5) Vitamin B12 deficiency: Status: Chronic Category: Medical Code(s): E53.8 - Deficiency of other specified B group vitamins (6) Vitamin D deficiency: Status: Chronic Category: Medical Code(s): E55.9 - Vitamin D deficiency, unspecified (7) Hypertension: Status: Chronic Qualifiers: Hypertension type: unspecified Qualified Code(s): I10 - Essential (primary) hypertension Category: Medical Code(s): I10 - Essential (primary) hypertension (8) Shortness of breath: Status: Acute Category: Medical Code(s): R06.02 - Shortness of breath (9) COVID: Status: Acute Category: Medical Code(s): U07.1 - COVID-19 Plan Glidden Mac is a 68-year-old with past medical history of hypertension, hyperlipidemia, COPD, B12 deficiency,vitamin D deficiency. Patient presents complaining of 1 week SOB, QUEEN, pleuritic chest discomfort. CTA chest shows bilateral segmental PEs with right heart strain, bilateral pulmonary embolus. Nasopharyngeal COVID PCR positive, BNP 6060, troponin 0.16->0.14. Patient admitted for respiratory distress secondary to new COVID with acute PE with right heart strain, hypertensive emergency, possible pneumonia present on admission, possible new CHF exacerbation, and COPD exacerbation. Problems as listed below: #Acute hypoxic respiratory failure #Pulmonary emboli #Multifocal pneumonia #Suspected HFpEF exacerbation versus right ventricular strain #COVID-19 ? Patient tested positive for COVID-19, presented with 1 week onset of shortness of breath, pleuritic chest pain. ? CTA revealed acute appearing pulmonary emboli in the left upper lobe with mild right heart strain. Also revealed multifocal pneumonia associated with COVID- 19. ? BNP elevated to 6060, initial WBC normal. Troponins peaked at 0.16. EKG without acute ischemic changes. ? ECHO revealed normal LV systolic function, increased LV wall thickness, RV apex hypokinesis suggestive of Bright sign. RVSP 50 to 55 mmHg. ? Continue cefepime, doxycycline day 3/5. Sputum cultures are normal, MRSA screen negative. Will continue to treat with antibiotics given high risk of clinical decompensation. ? Continue Decadron day /, remdesivir day 4/5. ? Started Eliquis 10 mg twice daily today, day 5 of therapeutic anticoagulation. Then transition to Eliquis 5 mg twice daily. Discontinued Lovenox. ? Continue IV Bumex 2 mg twice daily for now. Has had net -7.9 L so far with improvement in creatinine and BNP, and oxygen requirement. ? Weaned to 5 L nasal cannula, from 20 L Vapotherm. Continue to wean as tolerated. ? Pulmonology and cardiology assisting with care. No plans for EKOS per cardiology. ? If patient is able to be weaned further on nasal cannula and is stable, anticipate discharge tomorrow. #Hypertensive urgency ? Initial blood pressures were 200s over 140s, started on nicardipine drip with good response. ? Continue home lisinopril 20 mg p.o. daily. Increased home amlodipine from 2.5 to 10 mg p.o. daily. #Hyperlipidemia - Atorvastatin 40 mg p.o. daily. Full code DVT prophylaxis: Sarah
[2024-07-26] VITALS (7 sets, daily range): BP systolic 107–112; BP diastolic 67–72; PULSE 68–87; RESP 16–20; TEMP 36.4–36.7; O2SAT 88–94; BMI 27.8
[2024-07-26] MEDS: DOXYCYCLINE HYCL 100 MG TABLET PO ×2 (00:20→11:20)
[2024-07-26] MEDS: CEFEPIME HCL 2 GM in 0.9 % SODIUM CHLORIDE 100 ML IV ×2 (00:43→08:54)
[2024-07-26] MEDS: FLUTICASONE/UMECLIDIN/VILANTER 100/62.5/25MCG INHALER 1 PUFF IH (06:15)
[2024-07-26] MEDS: LISINOPRIL 20MG TABLET 20 MG PO (08:55)
[2024-07-26] MEDS: APIXABAN 5MG TABLET 10 MG PO (08:55)
[2024-07-26] MEDS: AMLODIPINE 10MG TABLET 10 MG PO (08:55)
[2024-07-26] MEDS: DOCUSATE SODIUM 100 MG CAPSULE PO (08:55)
[2024-07-26] MEDS: BUMETANIDE 1MG/4ML VIAL 2 MG IV (08:55)
[2024-07-26] MEDS: DEXAMETHASONE 4MG/ML 1ML VIAL 6 MG IV (08:56)
[2024-07-26 09:00] LABS: Albumin Level 3.4 g/dl (3.5-5.0); Chloride 100 mmol/L (98-107); Sodium 134 mmol/L (136-145)
[2024-07-26 09:01] LABS: Potassium 4.1 mmoL/L (3.5-5.1)
[2024-07-26 09:03] LABS: Alanine Aminotransferase 38 U/L (12-78); Alkaline Phosphatase 63 U/L (38-126); Anion Gap 10.1 mEq/L (5-15); Aspartate Amino Transferase 34 U/L (17-59); Bilirubin,Total 0.5 mg/dl (0.2-1.3); Blood Urea Nitrogen 64 mg/dl (9-20); Carbon Dioxide 28 mmol/L (22.0-30.0); Creatinine Clearance Estimated 67 mL/min (50-200); Estimated Glomerular Filt Rate 55 ml/min (>60); GFR (African American) 66 ML/MIN (>60)
[2024-07-26 09:04] LABS: Albumin/Globulin Ratio 1.2 (1.1-1.8); Calcium 8.8 mg/dl (8.4-10.2); Globulin 2.9 g/dL (1.3-3.2); Glucose 179 mg/dl (74-100); Magnesium 2.2 mg/dl (1.6-2.3); Total Protein,Serum 6.3 g/dl (6.3-8.2)
--- NOTE | 2024-07-26 09:37 | PC.NURSE ---
PT ROOM AIR SATURATION 88% WITHIN ABOUT A MINUTE WHILE AT REST SITTING ON THE SIDE OF THE BEDS
--- NOTE | 2024-07-26 09:42 | [facility].PTEV ---
Physical Therapy Evaluation Rehab PT IP Evaluation Start: 07/26/24 01:42 Freq: ONCE Status: Active Protocol: Document 07/26/24 09:38 BLANCA (Rec: 07/26/24 09:42 BLANCA [id number]) Subjective/History History History Per H&P: 68-year-old with past medical history of hypertension, hyperlipidemia, COPD, B12 deficiency,vitamin D deficiency. Patient presents complaining of 1 week SOB, QUEEN, pleuritic chest discomfort. Patient on BiPAP during my evaluation in emergency room with blood pressure of 195/125 on nitro drip 10 mcg/kg/min . Patient states his breathing has worsened over past 7 days. Denies lower extremity swelling, orthopnea, PND, history of heart failure. Patient describes chest discomfort as 2/10, dull, lasting minutes, substernal, worse with breathing. Patient 's son present with patient in emergency room and collaborates the story. Denies history of [place], CVA, previous cardiac catheterization. Admits to fevers/chills over past few days. Denies known sick contacts, recent travel, abdominal pain. CTA chest shows bilateral segmental PEs with right heart strain, bilateral pulmonary embolus. Nasopharyngeal COVID PCR positive, BNP 6060, troponin 0.16->0.14 during emergency room evaluation Subjective Subjective PLOF: Pt reports he lives with his son in a mobile home with 4 MARILYN. Pt IND with all mobility prior to admission. New diagnosis of cancer in past 12 No months? Rehab PT IP Eval Objective Appearance Patient Behavior Appropriate,Cooperative Patient Orientation Person Difficulty following instructions none Speech Pattern Clear Ambulation Patient Able to Ambulate Yes Ambulation Observation IP General Gait Pattern Observation No Deviations/Normal Ambulation Distance (feet) 18 Ambulation Assistive Device None Ambulation Ability Independent Balance Ability to Arise Able, uses arms to help Sitting Balance Steady, safe Standing Balance Steady, wide stance Dynamic Sitting Balance Ability Good Dynamic Standing Balance Ability Good Transfers Bed Transfer Ability Independent Sit to Stand Bed Transfer Ability Independent Rehab PT IP prob,goals,plan Problems Date of Evaluation: 07/26/24 Rehab Potential Rehab Potential Innapropriate for Skilled Therapy Discharge Plan PT Discharge Plan Pt not appropriate for skilled acute care PT d/t mobility being at baseline/IND. Pt demo 'd good safety awareness and dynamic standing balance. Eval Complexity Eval Charge Codes 77064 - Low Complexity PHYSICIAN CERTIFICATION: I certify the specified therapy services for [place] are required, authorized, and reviewed every 30 days.
[2024-07-26 09:54] LABS: Hematocrit 35.3 % (42.0-52.0); Hemoglobin 12.7 g/dL (14.1-18.0); Mean Corpuscular Volume 94.4 fl (80-94); Platelet Count 449 K/mm3 (142-424); Red Blood Count 3.74 M/mm3 (4.60-6.20); Red Cell Distribution Width 17.9 % (11.5-17.5); White Blood Count 12.1 K/mm3 (4.8-10.8)
[2024-07-26 09:55] LABS: Basophils # 0.2 K/mm3 (0-0.2); Basophils % 0.2 % (0.1-2.0); Eosinophils % 0.1 % (0.1-12.0); Lymphocytes # 1.9 K/mm3 (0.7-4.5); Lymphocytes % 15.7 % (10-50); Mean Platelet Volume 9.5 fl (7.4-10.4); Monocytes # 0.9 K/mm3 (0.1-1.0); Monocytes % 7.6 % (1.7-9.3); Neutrophils # 9.1 K/mm3 (1.8-7.8); Neutrophils % 75.2 % (37.0-80.0)
--- NOTE | 2024-07-26 10:00 | EXP.DC.SUM ---
General Admission date:: 07/21/24 Discharge date: 07/26/24 HPI HPI HPI: 68-year-old with past medical history of hypertension, hyperlipidemia, COPD, B12 deficiency,vitamin D deficiency. Patient presents complaining of 1 week SOB, QUEEN, pleuritic chest discomfort. Patient on BiPAP during my evaluation in emergency room with blood pressure of 195/125 on nitro drip 10 mcg/kg/min . Patient states his breathing has worsened over past 7 days. Denies lower extremity swelling, orthopnea, PND, history of heart failure. Patient describes chest discomfort as 2/10, dull, lasting minutes, substernal, worse with breathing. Patient's son present with patient in emergency room and collaborates the story. Denies history of OR, CVA, previous cardiac catheterization. Admits to fevers/chills over past few days. Denies known sick contacts, recent travel, abdominal pain. CTA chest shows bilateral segmental PEs with right heart strain, bilateral pulmonary embolus. Nasopharyngeal COVID PCR positive, BNP 6060, troponin 0.16->0.14 during emergency room evaluation Hospital Course Hospital Course Hospital Course: [place] Mac is a 68-year-old with past medical history of hypertension, hyperlipidemia, COPD, B12 deficiency,vitamin D deficiency. Patient presents complaining of 1 week SOB, QUEEN, pleuritic chest discomfort. CTA chest shows bilateral segmental PEs with right heart strain, bilateral pulmonary embolus. Nasopharyngeal COVID PCR positive, BNP 6060, troponin 0.16->0.14. Patient admitted for respiratory distress secondary to new COVID with acute PE with right heart strain, hypertensive emergency, possible pneumonia present on admission, possible new CHF exacerbation, and COPD exacerbation. Cardiology was consulted. Patient not necessitating intervention for PEs. Initiated on anticoagulation. Showing improvement with improvement in oxygen requirement. Necessitating 2 L by day of discharge. Given his improvement, will discharge home on oral anticoagulation and follow-up with cardiology as an outpatient. Problems addressed as follows: #Acute hypoxic respiratory failure #Pulmonary emboli #Multifocal pneumonia #Suspected HFpEF exacerbation versus right ventricular strain #COVID-19 ? Patient presented with respiratory distress. Was found to be COVID-positive. CTA on admission showed pulmonary emboli in left upper lobe with mild right heart strain. Found to have multifocal pneumonia consistent with COVID-19. Symptoms have been going on for a week. Started on oxygen. Patient showed improvement during admission. Troponins peaked at 0.16, improved thereafter. EKG did not show ischemic changes. Echo revealed normal LV function with increased LV wall thickness. RV apex hypokinesis suggestive of Bright sign. RVSP elevated at 50 to 55 mmHg. Initially on Lovenox for anticoagulation. Transitioned to Eliquis 10 mg twice daily. Discharged on Eliquis starter pack with plan to wean to 5 mg twice daily and continue for at least 6 months. Patient started on Bumex due to right heart strain. -8 L during admission. Significant improvement in breathing. Able to wean to 2 L by day of discharge from [facility]. Treated symptomatically with antibiotics, remdesivir, Decadron for his COVID. Given his clinical improvement, needs no further steroids at discharge. Continue doxycycline to complete 1 more day of antibiotics for empiric course. Stable to discharge home with follow-up with cardiology and pulmonology. #Hypertensive urgency: Initial blood pressures were 200s over 140s, started on nicardipine drip with good response. Able to transition to oral regimen with lisinopril 20 mg daily and increasing of amlodipine to 10 mg daily. Will continue Bumex 0.5 mg daily. Blood pressure controlled at 112/68 on day of discharge. #Hyperlipidemia: Atorvastatin 40 mg p.o. daily. Room air saturation at rest on morning of discharge of 88%. Continue oxygen therapy via nasal cannula at 2L continuously Exam Data for Last 24 hours Vital signs and Labs for Last 24 Hours: Temp Pulse Resp BP Pulse Ox O2 Del Method O2 Flow Rate 98.1 F 80 17 110/72 88 L Room Air 2 07/26/24 07:53 07/26/24 08:00 07/26/24 07:53 07/26/24 07:53 07/26/24 09:37 07/26/24 09:37 07/26/24 07:00 FiO2 40 07/25/24 10:00 Laboratory Results - last 24 hr 07/26/24 08:30: WBC 12.1 H, RBC 3.74 L, Hgb 12.7 L, Hct 35.3 L, MCV 94.4 H, MCH 34.0 H, MCHC 36.0 H, RDW 17.9 H, Plt Count 449 H, MPV 9.5, Neut % (Auto) 75.2, Lymph % (Auto) 15.7, Green % (Auto) 7.6, Eos % (Auto) 0.1, Baso % (Auto) 0.2, Neut # (Auto) 9.1 H, Lymph # (Auto) 1.9, Green # (Auto) 0.9, Eos # (Auto) 0.0, Baso # (Auto) 0.2, Sodium 134 L, Potassium 4.1, Chloride 100, Carbon Dioxide 28, Anion Gap 10.1, BUN 64 H, Creatinine 1.30 H, Estimated Creat Clear 67, Estimated GFR 55 L, Est GFR ( Amer) 66, Glucose 179 H, Calcium 8.8, Magnesium 2.2, Total Bilirubin 0.5, AST 34, ALT 38, Alkaline Phosphatase 63, Total Protein 6.3, Albumin 3.4 L, Globulin 2.9, Albumin/Globulin Ratio 1.2 I & O for Last 24 hours: Intake & Output 07/23/24 07/24/24 07/25/24 07/26/24 23:59 23:59 23:59 23:59 Intake Total 1510 / 1990 1430 / 1430 1320 / 1320 240 / 240 Output Total 4975 / 5975 6135 / 6535 2350 / 3050 1330 / 1330 Balance -3465 / -3985 -4705 / -5105 -1030 / -1730 -1090 / -1090 Weight 94.69 kg 94.69 kg 90.446 kg 88.11 kg Microbiology Reports for the Last 24 Hours: Microbiology 07/22/24 00:23 Blood Blood Culture - Preliminary NO GROWTH AFTER 4 DAYS 07/22/24 00:23 Blood Blood Culture - Preliminary NO GROWTH AFTER 4 DAYS 07/21/24 21:19 Blood Blood Culture - Preliminary NO GROWTH AFTER 4 DAYS 07/21/24 21:19 Blood Blood Culture - Preliminary NO GROWTH AFTER 4 DAYS Constitutional Constitutional: no acute distress, average body habitus, chronically ill appearing and cooperative *Routine HEENT Exam Head: Present normocephalic Eye: Present EOMI and PERRL ENT: Present mucous membranes moist *Routine Neck Exam Neck: Present supple; Absent lymphadenopathy *Routine Respiratory Exam Respiratory: Present prolonged expiratory phase and wheezes; Absent accessory muscle use, rhonchi or crackles *Routine Cardiovascular Exam Cardiovascular: Present RRR *Routine Abdominal Exam Abdominal: Present soft and normoactive bowel sounds; Absent tenderness *Routine Rectal Exam Patient deferred: visual exam *Routine Exam Patient deferred: penile exam *Routine Extremities Exam Extremities: Absent cyanosis, clubbing or edema *Routine Skin Exam Skin: Present warm; Absent rash *Routine Neurological Exam Neurological: Present alert, oriented X3 and moving all extremities; Absent altered mental status Results Data Completed and Pending Labs on day of discharge: Labs from last 24 hours 07/26/24 08:30 WBC 12.1 H RBC 3.74 L Hgb 12.7 L Hct 35.3 L MCV 94.4 H MCH 34.0 H MCHC 36.0 H RDW 17.9 H Plt Count 449 H MPV 9.5 Neut % (Auto) 75.2 Lymph % (Auto) 15.7 Green % (Auto) 7.6 Eos % (Auto) 0.1 Baso % (Auto) 0.2 Neut # (Auto) 9.1 H Lymph # (Auto) 1.9 Green # (Auto) 0.9 Eos # (Auto) 0.0 Baso # (Auto) 0.2 Sodium 134 L Potassium 4.1 Chloride 100 Carbon Dioxide 28 Anion Gap 10.1 BUN 64 H Creatinine 1.30 H Estimated Creat Clear 67 Estimated GFR 55 L Est GFR ( Amer) 66 Glucose 179 H Calcium 8.8 Magnesium 2.2 Total Bilirubin 0.5 AST 34 ALT 38 Alkaline Phosphatase 63 Total Protein 6.3 Albumin 3.4 L Globulin 2.9 Albumin/Globulin Ratio 1.2 Preliminary micro results at discharge 07/22/24 00:23 Blood Culture - Preliminary Blood NO GROWTH AFTER 4 DAYS 07/22/24 00:23 Blood Culture - Preliminary Blood NO GROWTH AFTER 4 DAYS 07/21/24 21:19 Blood Culture - Preliminary Blood NO GROWTH AFTER 4 DAYS 07/21/24 21:19 Blood Culture - Preliminary Blood NO GROWTH AFTER 4 DAYS DS: Diagnosis Discharge Diagnosis (1) Pulmonary emboli: Status: Acute Code(s): I26.99 - Other pulmonary embolism without acute cor pulmonale (2) PNA (pneumonia): Status: Acute Code(s): J18.9 - Pneumonia, unspecified organism (3) COPD (chronic obstructive pulmonary disease): Status: Chronic Code(s): J44.9 - Chronic obstructive pulmonary disease, unspecified Qualifiers: COPD type: unspecified COPD Qualified Code(s): J44.9 - Chronic obstructive pulmonary disease, unspecified (4) Hyperlipidemia: Status: Chronic Code(s): E78.5 - Hyperlipidemia, unspecified Qualifiers: Hyperlipidemia type: unspecified Qualified Code(s): E78.5 - Hyperlipidemia, unspecified (5) Vitamin B12 deficiency: Status: Chronic Code(s): E53.8 - Deficiency of other specified B group vitamins (6) Vitamin D deficiency: Status: Chronic Code(s): E55.9 - Vitamin D deficiency, unspecified (7) Hypertension: Status: Chronic Code(s): I10 - Essential (primary) hypertension Qualifiers: Hypertension type: unspecified Qualified Code(s): I10 - Essential (primary) hypertension (8) Shortness of breath: Status: Acute Code(s): R06.02 - Shortness of breath (9) COVID: Status: Acute Code(s): U07.1 - COVID-19 Meds Home Medications and Allergies Home Medications ?Medication ?Instructions ?Recorded ?Confirmed ?Type amlodipine 10 mg tablet 10 mg PO DAILY 30 days #30 tabs 07/26/24 Rx apixaban 5 mg tablet (Eliquis) See Rx Instructions .Route 07/26/24 Rx .COMPLEX 30 days #68 tabs atorvastatin 40 mg tablet 40 mg PO HS 30 days #30 tabs 24 Rx bumetanide 0.5 mg tablet 0.5 mg PO DAILY #30 tabs 07/26/24 Rx doxycycline hyclate 100 mg tablet 100 mg PO Q12H 1 day #2 tabs 07/26/24 Rx fluticasone fur. 100 mcg-umeclid 1 inh inhalation DAILY #60 ea 07/26/24 Rx 62.5 mcg-vilant 25 mcg inhalat.powder (Trelegy Ellipta) lisinopril 20 mg tablet 20 mg PO DAILY 30 days #30 tabs 07/26/24 Rx New Prescriptions to Start Prescriptions: karenodipine Rashad Pierson apixaban [Eliquis] Dangelo,Rashad atorvastatin Dangelo,Rashad bumetanide Dangelo,Rashad doxycycline hyclate Dangelo,Rashad [id number]-oliciynja-tfrdeuik [Trelegy Ellipta] Dangelo,Rashad lisinopril Rashad Pierson Allergies Allergy/AdvReac Type Severity Reaction Status Date / Time No Known Allergies Allergy Verified 06/18/20 13:13 Discharge Plan Disposition Patient Disposition: Home, Self-Care Condition: Fair Discharge Order Discharge Orders: Discharge Order (Routine); Ordered 07/26/24 Ordered By: Rashad Pierson Follow up Plan Follow up with: Simin Posey MD [Primary Care Provider] - Enter time for follow up Christian Pinzon MD [Staff Physician] - Enter time for follow up (Please call office for appointment.) Prescriptions/Medication Reconciliation: New amlodipine 10 mg Tablet 10 mg PO DAILY 30 Days Qty: 30 0RF Eliquis 5 mg Tablet See Rx Instructions .ROUTE .COMPLEX 30 Days Qty: 68 0RF Rx Instructions: 10mg BID for 4 more days, 5mg bid thereafter atorvastatin 40 mg Tablet 40 mg PO HS 30 Days Qty: 30 0RF Trelegy Ellipta 100-62.5-25 mcg Blister With Device 1 inh inhalation DAILY Qty: 60 0RF lisinopril 20 mg Tablet 20 mg PO DAILY 30 Days Qty: 30 0RF doxycycline hyclate 100 mg Tablet 100 mg PO Q12H 1 Days Qty: 2 0RF bumetanide 0.5 mg tablet 0.5 mg PO DAILY Qty: 30 0RF Other Ambulatory Orders: Home Medical Equipment (Routine) Location: None Selected Ordered By: Rashad Pierson Problem Reconciliation Problems Reviewed?: Yes Patient Discharge Instructions ACTIVITY: Continue current activity DIET: continue same diet Patient Instructions: The DASH Diet, DI for Pneumonia -- Adult, DI for Pulmonary Embolism, DI for COVID-19 (Suspected or Confirmed ) Print Language: [place] Providers Primary Care Provider: Simin Posey Admit Provider: Andrew Caban Attending Provider: Andrew Caban
[2024-07-26] MEDS: REMDESIVIR 100 MG in 0.9 % SODIUM CHLORIDE 100 ML IV (11:20)
--- NOTE | 2024-07-26 11:56 | CARE MANAGER ---
Patient requires supplemental O2 at discharge. [facility] [employer] signed for Charissa and order/clinical faxed. Portable will be delivered prior to discharge.
--- NOTE | 2024-07-29 10:04 | SW/DCPLANNER ---
Phoned patient x2. Each time no answer and left message with call back number. Marcia Flowers
== END 2024-07-26 16:35 | disposition home or self-care (01) | DRG 175 ==
LOC: ER 19:42 → ICU 23:19 → 2ND 07-23 14:39
PROVIDERS: Internal Medicine; Admitting Provider Student in an Organized Health Care Education/Training Program; Emergency Provider Emergency Medicine; PCP Family Medicine; Visit Provider Student in an Organized Health Care Education/Training Program
DX: I26.94 Multiple subsegmental thrombotic pulmonary emboli without acute cor pulmonale (principal); I50.31 Acute diastolic (congestive) heart failure; U07.1 COVID-19; J12.82 Pneumonia due to coronavirus disease 2019; J44.1 Chronic obstructive pulmonary disease with (acute) exacerbation; E53.8 Deficiency of other specified B group vitamins; E78.5 Hyperlipidemia, unspecified; E55.9 Vitamin D deficiency, unspecified; I16.0 Hypertensive urgency; I11.0 Hypertensive heart disease with heart failure; F17.210 Nicotine dependence, cigarettes, uncomplicated; Z79.899 Other long term (current) drug therapy
CPT/HCPCS: 36415; 71045; 71275; 80053; 80061; 82803; 83605; 83735; 83880; 84145; 84484; 85007; 85025; 85378; 85610; 85730; 86140; 86803; 87040; 87070; 87081; 87205; 87389; 87636; 93005; 93306; 94640; 94760; 94761; 97161; 99252; 99285; J0456; J0692; J0696; J1100; J1644; J1650; J1939; J1940; J2404; J2919; J7050; J7620; Q9967

== ENCOUNTER 2024-07-30 18:29 | Emergency (ER) | payer MEDICARE, MEDICAID, SELFPAY ==
[2024-07-30] VITALS (20 sets, daily range): BP systolic 73–156; BP diastolic 40–116; PULSE 50–107; RESP 15–26; TEMP 36.7–36.8; O2SAT 62–100; BMI 27.6; BMI 30.1
--- NOTE | 2024-07-30 18:26 | ECG_ITS ---
APPROVED REPORT Exam: Resting ECG HR:105 bpm ECG Measurements Heart Rate 105 AXES CO 127 P 56 QRSd 85 QRS 39 QT 323 T 50 QTc 384 Conclusion Sinus tachycardia Electronically signed by : ALEM MCFARLAND, 07/31/2024 15:00:41
[2024-07-30 18:39] LABS: Basophils % 0.2 % (0.1-2.0); Eosinophils # 0.2 K/mm3 (0.0-0.4); Eosinophils % 0.8 % (0.1-12.0); Hematocrit 30.8 % (42.0-52.0); Hemoglobin 9.6 g/dL (14.1-18.0); Lymphocytes # 3.9 K/mm3 (0.7-4.5); Lymphocytes % 19.9 % (10-50); Mean Corpuscular HGB Conc 31.2 g/dL (31.8-35.4); Mean Corpuscular Hemoglobin 29.2 pg (27.0-31.2); Mean Corpuscular Volume 93.6 fl (80-94); Mean Platelet Volume 9.4 fl (7.4-10.4); Monocytes # 1.8 K/mm3 (0.1-1.0); Monocytes % 9.1 % (1.7-9.3); Neutrophils # 13.4 K/mm3 (1.8-7.8); Neutrophils % 68.9 % (37.0-80.0); Platelet Count 483 K/mm3 (142-424); Red Blood Count 3.29 M/mm3 (4.60-6.20); Red Cell Distribution Width 14.4 % (11.5-17.5); White Blood Count 19.5 K/mm3 (4.8-10.8)
[2024-07-30 18:40] LABS: MANUAL DIFFERENTIAL MANUAL DIFFERENTIAL (MANUAL DIFF)
--- NOTE | 2024-07-30 18:42 | ED_ITS ---
Discharge Plan Disposition Patient Disposition: Xfer Short-Term Hosp Prescriptions Prescriptions: No Action amlodipine 10 mg Tablet 10 mg PO DAILY 30 Days Qty: 30 0RF Eliquis 5 mg Tablet See Rx Instructions .ROUTE .COMPLEX 30 Days Qty: 68 0RF Rx Instructions: 10mg BID for 4 more days, 5mg bid thereafter atorvastatin 40 mg Tablet 40 mg PO HS 30 Days Qty: 30 0RF Trelegy Ellipta 100-62.5-25 mcg Blister With Device 1 inh inhalation DAILY Qty: 60 0RF lisinopril 20 mg Tablet 20 mg PO DAILY 30 Days Qty: 30 0RF doxycycline hyclate 100 mg Tablet 100 mg PO Q12H 1 Days Qty: 2 0RF bumetanide 0.5 mg tablet 0.5 mg PO DAILY Qty: 30 0RF Referrals Follow up/Referrals: Simin Posey MD [Primary Care Provider] - See instructions Clinical Impressions Clinical Impression: Acute upper gastrointestinal hemorrhage, Hemorrhagic shock, Symptomatic anemia Stand Alone Forms Stand Alone Forms: Transfer Record - ED Instructions Patient Instructions: DI for Diarrhea and Traveler's Diarrhea -- Adult, DI for Diarrhea and Traveler's Diarrhea -- Child, DI for Nausea -- Adult, DI for Nausea -- Child Print Language Print Language: Indonesian Discharge ED Provider: Mac Vázquez General Adult HPI <Rodo Saunders ([facility]), PHOTO TECHNICIAN - Last Filed: 07/30/24 19:40> General Chief complaint: Nausea/Vomiting/Diarrhea Stated complaint: Hemoptysis Time Seen by Provider: 07/30/24 18:29 Mode of Arrival: EMS Source of Information: Patient Limitations: No Limitations History of Present Illness HPI narrative: 68-year-old male presents for vomiting up bright red blood x 1. Patient states he was just released from the hospital with a diagnosis of pneumonia due to COVID and PE. Patient states he was placed on Eliquis before discharge. Patient states today he got a weird feeling in his stomach and then started vomiting up blood. Patient states he feels bloated in his abdomen feels tight. Related Data Previous Rx's ?Medication ?Instructions ?Recorded amlodipine 10 mg tablet 10 mg PO DAILY 30 days #30 tabs 07/26/24 apixaban 5 mg tablet (Eliquis) See Rx Instructions .Route 07/26/24 .COMPLEX 30 days #68 tabs atorvastatin 40 mg tablet 40 mg PO HS 30 days #30 tabs 07/26/24 bumetanide 0.5 mg tablet 0.5 mg PO DAILY #30 tabs 07/26/24 doxycycline hyclate 100 mg tablet 100 mg PO Q12H 1 day #2 tabs 07/26/24 fluticasone fur. 100 mcg-umeclid 1 inh inhalation DAILY #60 ea 07/26/24 62.5 mcg-vilant 25 mcg inhalat.powder (Trelegy Ellipta) lisinopril 20 mg tablet 20 mg PO DAILY 30 days #30 tabs 07/26/24 Allergies Allergy/AdvReac Type Severity Reaction Status Date / Time No Known Allergies Allergy Verified 06/18/20 13:13 PFSH <Rodo Saunders ([facility]), PHOTO TECHNICIAN - Last Filed: 07/30/24 19:40> PFSH Disclaimer: The information contained in this section may have been updated after the patient was seen, as this information can be updated by other users. Medical History , PHOTO TECHNICIAN) Pneumonia due to COVID-19 virus Osteoarthritis COPD (chronic obstructive pulmonary disease) Family History , PHOTO TECHNICIAN) Colon cancer Lung cancer Social History , PHOTO TECHNICIAN) Smoking Status: Former smoker tobacco type: cigarettes packs per day: 1 alcohol intake: never substance use type: denies use current occupational status: other Travel in the last 8 weeks: None Other Medical History Have you received the Flu Vaccine for this season: No Have you received the Pneumonia Vaccine: No <[facility] PHOTO TECHNICIAN - Last Filed: 07/30/24 19:40> ROS Obtained: Yes Systems reviewed as appropriate & no additional complaints except as documented Physical Exam <[facility] PHOTO TECHNICIAN - Last Filed: 07/30/24 19:40> General General appearance: alert and in no apparent distress Eye Eye exam: Present normal appearance ENT ENT exam: Present normal exam Respiratory Respiratory exam: Present normal lung sounds bilaterally Cardiovascular Cardiovascular exam: Present regular rate and normal rhythm Abdominal Exam Abdominal exam: Present distention and tenderness Abdominal tenderness: Present epigastrium Neurological Exam Neurological exam: Present alert and oriented X3 Skin Skin exam: Present warm and intact Lymphatic Lymphatic Findings: no adenopathy <Mac Vázquez MD - Last Filed: 07/30/24 19:41> General General appearance: anxious and in distress Abdominal Exam Abdominal tenderness: Present moderate Skin Skin exam: Present diaphoresis and pallor Medical Decision Making <Rodo Saunders ([facility]), PHOTO TECHNICIAN - Last Filed: 07/30/24 19:40> Medical Records Medical records reviewed: Yes I reviewed the patient's medical records. Screening: Per USPSTF and CDC recommendations, given the prevalence of disease in our region, it is our hospital?s policy to screen for HIV and viral Hepatitis for all patients aged 18 and over and those with ongoing risk factors. Lc Inquiry Pt receiving controlled substance: No Lc was queried for this patient: No Vital Signs: 07/30/24 18:29 07/30/24 18:46 Temperature 98.2 F Temperature Source Oral Pulse Rate 69 Pulse Rate [Right] 107 H Respiratory Rate 22 21 Blood Pressure 78/40 L Blood Pressure [Right Arm] 92/51 L Blood Pressure Mean [Right Arm] 64 Blood Pressure Source [Right Arm] Automatic Cuff 02 Sat by Pulse Oximetry 96 98 Oxygen Delivery Method Room Air Nasal Cannula Lab Data Lab results reviewed: Yes I reviewed the patient's lab results. Lab Results 07/30/24 18:29: WBC 19.5 H, RBC 3.29 L, Hgb 9.6 L, Hct 30.8 L, MCV 93.6, MCH 29.2, MCHC 31.2 L, RDW 14.4, Plt Count 483 H, MPV 9.4, Neut % (Auto) 68.9, Lymph % (Auto) 19.9, [place] % (Auto) 9.1, Eos % (Auto) 0.8, Baso % (Auto) 0.2, Neut # (Auto) 13.4 H, Lymph # (Auto) 3.9, [place] # (Auto) 1.8 H, Eos # (Auto) 0.2, Baso # (Auto) 0.0, Total Counted 100, Neutrophils % (Manual) 67, Lymphocytes % (Manual) 21, Monocytes % (Manual) 10 H, Promyelocytes % 2, Platelet Estimate Slight increase, RBC Morphology Normal, Sodium 136, Potassium 5.4 H, Chloride 106, Carbon Dioxide 28, Anion Gap 7.4, BUN 55 H, Creatinine 1.10, Estimated GFR 66, Est GFR ( Amer) 80, Glucose 135 H, Hemoglobin A1c 5.8, Calcium 8.6, Total Bilirubin 0.7, AST 32, ALT 28, Alkaline Phosphatase 62, Total Protein 5.3 L, A lbumin 2.7 L, Globulin 2.6, Albumin/Globulin Ratio 1.0 L, Lipase 260 07/30/24 18:55: PT 11.9, INR 1.07, APTT 29.7, Lactate 1.8, Blood Type O Positive 07/30/24 18:29 07/30/24 18:29 Orders (Tests/Meds): ED MEDICATIONS Generic Name Dose Route Start Last Admin Trade Name Freq PRN Reason Stop Dose Admin Factor Xa(Recombinant) Inactiv-zhzo 0 mg 07/30/24 19:11 Andexxa 200mg Vial IV 07/30/24 19:12 CONSULT PHARMACY ONE Sodium Chloride 250 mls @ 25 mls/hr 07/30/24 19:15 Sod Chlor 0.9% 250ml Bag IV 07/31/24 19:14 .Q10H SHARONA Factor Xa(Recombinant) Inactiv 40 mls @ 180 mls/hr 07/30/24 19:30 -zhzo 400 mg/ Miscellaneous IV 07/30/24 19:43 ONCE ONE 30 MG/MIN Factor Xa(Recombinant) Inactiv 48 mls @ 24 mls/hr 07/30/24 19:30 -zhzo 480 mg/ Miscellaneous IV 07/30/24 21:29 ONCE ONE 4 MG/MIN Ampicillin Sodium/Sulbactam 100 mls @ 200 mls/hr 07/30/24 19:21 Sodium 3 gm/ Sodium Chloride IV 07/30/24 19:22 ONCE ONE Pantoprazole Sodium 40 mg 07/30/24 19:39 Pantoprazole 40mg Vial IV 07/30/24 19:40 ONCE ONE Sodium Chloride 10 ml 07/30/24 19:39 Sodium Chloride 0.9% 10ml Vial IV 08/29/24 19:38 NEEDED PRN dilute protonix ORDERS Category Date Time Status Transfuse RBC's [Red Blood Cells] Stat BBK 07/30/24 18:55 Results Type and Screen Stat BBK 07/30/24 18:[address] angio abdomen pelvis Stat Cat Scan 07/30/24 18:30 Ordered Complete Blood Count Auto Diff Stat Lab 07/30/24 18:29 Completed Comprehensive Metabolic Panel Stat Lab 07/30/24 18:29 Completed HIV (1&2) Antibody Rapid Stat Lab 07/30/24 19:39 Ordered Hemoglobin A1C Stat Lab 07/30/24 18:29 Completed Lactic Acid Stat Lab 07/30/24 18:55 Completed Lipase Stat Lab 07/30/24 18:29 Completed PT INR [Prothrombin Time INR] Stat Lab 07/30/24 18:55 Completed PTT [Activated Partial Thrombo Time] Stat Lab 07/30/24 18:55 Completed Blood Culture Stat Micro 07/30/24 19:22 Ordered Physician Consults Physician Consulted: Dr. Alegre at accepted patient for transfer Time: 19:40 Reason -: Transfer to another facilty Medical Decision Narrative: In summary patient is a 68-year-old male who presents to the emergency department for evaluation of vomiting up blood x 1. Patient is hemodynamically unstable upon arrival BP low, afebrile. Abdomen tender swollen. Differential diagnosis includes GI bleed. Initial workup will be conducted with labs. Initial inventions include lactated Ringer's bolus, labs. [facility] show 3 point drop in H&H within 3 days. upon repeat evaluation blood pressure dropped to 78/40. Given this patient was transferred to high-level care. Documented with rn cardiac normal sinus rhythm with a rate of 69 at 7:00. With a blood pressure of 78/40 <Mac Vázquez MD - Last Filed: 07/30/24 19:41> Vital Signs: 07/30/24 18:29 07/30/24 18:46 Temperature 98.2 F Temperature Source Oral Pulse Rate 69 Pulse Rate [Right] 107 H Respiratory Rate 22 21 Blood Pressure 78/40 L Blood Pressure [Right Arm] 92/51 L Blood Pressure Mean [Right Arm] 64 Blood Pressure Source [Right Arm] Automatic Cuff 02 Sat by Pulse Oximetry 96 98 Oxygen Delivery Method Room Air Nasal Cannula Lab Data Lab Results 07/30/24 18:29: WBC 19.5 H, RBC 3.29 L, Hgb 9.6 L, Hct 30.8 L, MCV 93.6, MCH 29.2, MCHC 31.2 L, RDW 14.4, Plt Count 483 H, MPV 9.4, Neut % (Auto) 68.9, Lymph % (Auto) 19.9, [place] % (Auto) 9.1, Eos % (Auto) 0.8, Baso % (Auto) 0.2, Neut # (Auto) 13.4 H, Lymph # (Auto) 3.9, [place] # (Auto) 1.8 H, Eos # (Auto) 0.2, Baso # (Auto) 0.0, Total Counted 100, Neutrophils % (Manual) 67, Lymphocytes % (Manual) 21, Monocytes % (Manual) 10 H, Promyelocytes % 2, Platelet Estimate Slight increase, RBC Morphology Normal, Sodium 136, Potassium 5.4 H, Chloride 106, Carbon Dioxide 28, Anion Gap 7.4, BUN 55 H, Creatinine 1.10, Estimated GFR 66, Est GFR ( Amer) 80, Glucose 135 H, Hemoglobin A1c 5.8, Calcium 8.6, Total Bilirubin 0.7, AST 32, ALT 28, Alkaline Phosphatase 62, Total Protein 5.3 L, A lbumin 2.7 L, Globulin 2.6, Albumin/Globulin Ratio 1.0 L, Lipase 260 07/30/24 18:55: PT 11.9, INR 1.07, APTT 29.7, Lactate 1.8, Blood Type O Positive Orders (Tests/Meds): ED MEDICATIONS Generic Name Dose Route Start Last Admin Trade Name Freq PRN Reason Stop Dose Admin Factor Xa(Recombinant) Inactiv-zhzo 0 mg 07/30/24 19:11 Andexxa 200mg Vial IV 07/30/24 19:12 CONSULT PHARMACY ONE Sodium Chloride 250 mls @ 25 mls/hr 07/30/24 19:15 Sod Chlor 0.9% 250ml Bag IV 07/31/24 19:14 .Q10H SHARONA Factor Xa(Recombinant) Inactiv 40 mls @ 180 mls/hr 07/30/24 19:30 -zhzo 400 mg/ Miscellaneous IV 07/30/24 19:43 ONCE ONE 30 MG/MIN Factor Xa(Recombinant) Inactiv 48 mls @ 24 mls/hr 07/30/24 19:30 -zhzo 480 mg/ Miscellaneous IV 07/30/24 21:29 ONCE ONE 4 MG/MIN Ampicillin Sodium/Sulbactam 100 mls @ 200 mls/hr 07/30/24 19:21 Sodium 3 gm/ Sodium Chloride IV 07/30/24 19:22 ONCE ONE Pantoprazole Sodium 40 mg 07/30/24 19:39 Pantoprazole 40mg Vial IV 07/30/24 19:40 ONCE ONE Sodium Chloride 10 ml 07/30/24 19:39 Sodium Chloride 0.9% 10ml Vial IV 08/29/24 19:38 NEEDED PRN dilute protonix ORDERS Category Date Time Status Transfuse RBC's [Red Blood Cells] Stat BBK 07/30/24 18:55 Results Type and Screen Stat BBK 07/30/24 18:[address] angio abdomen pelvis Stat Cat Scan 07/30/24 18:30 Ordered Complete Blood Count Auto Diff Stat Lab 07/30/24 18:29 Completed Comprehensive Metabolic Panel Stat Lab 07/30/24 18:29 Completed HIV (1&2) Antibody Rapid Stat Lab 07/30/24 19:39 Ordered Hemoglobin A1C Stat Lab 07/30/24 18:29 Completed Lactic Acid Stat Lab 07/30/24 18:55 Completed Lipase Stat Lab 07/30/24 18:29 Completed PT INR [Prothrombin Time INR] Stat Lab 07/30/24 18:55 Completed PTT [Activated Partial Thrombo Time] Stat Lab 07/30/24 18:55 Completed Blood Culture Stat Micro 07/30/24 19:22 Ordered Medical Decision Narrative: In summary patient is a 68-year-old male who presents to the emergency department for evaluation of vomiting up blood x 1. Patient is hemodynamically unstable upon arrival BP low, afebrile. Abdomen tender swollen. Differential diagnosis includes GI bleed. Initial workup will be conducted with labs. Initial inventions include lactated Ringer's bolus, labs. [facility] 3 [facility] drop in H&H within 3 days. upon repeat evaluation blood pressure dropped to 78/40. Given this patient was transferred to high-level care. Documented with rn cardiac normal sinus rhythm with a rate of 69 at 7:00. With a blood pressure of 78/40 I was consulted by the JEFFERSON, and we discussed the complexity of the problems being addressed. I approved the treatment and management plan for this patient's care in the Emergency Department, thus performing a substantive portion of the medical decision making. I independently examined and interviewed patient. Patient having gross bright red hematemesis after being recently started on Eliquis on 07/26 for pulmonary embolus. Patient currently taking 10 mg twice daily for loading dose. Patient hypotensive, tachycardic, pale, diaphoretic, very unwell appearing with tender abdomen this not necessarily peritonitic on arrival. Patient getting progressively more hypotensive and tachycardic, 2 units of uncrossed matched O+ blood ordered and administered. Independent interpretation of workup with leukocytosis 19.5, hemoglobin 9.6. This is 3 g lower than it was on 07/26. Patient's coags nonactionable, but patient on 10 a inhibitor. Chemistry with normal sodium, mild hyperkalemia 5.4 with isolated BUN 55, creatinine 1.1. Lactate negative at 1.8. Patient also given crystalloid and 40 mg IV Protonix. Given leukocytosis, patient given 3 g of Unasyn. Eliquis reversed with andexanet 480 mg IV. [facility] contacted and case was discussed, graciously accepted for transfer. Because patient high risk for clinical decompensation if discharged, deemed appropriate for transfer and inpatient admission. Results were relayed to patient who voiced understanding and patient was agreeable to transfer, inpatient admission, and management. Patient was graciously accepted and transferred to [facility] for further definitive management, under Dr. Alegre. Mac Vázquez MD Critical Care <Rodo Saunders ([facility]), PHOTO TECHNICIAN - Last Filed: 07/30/24 19:40> Critical Care Time Critical Care Time: Yes Attestation: On 07/30/24, the high probability of a clinically significant, sudden or life threatening deterioration of the following system(s) required my full and direct attention, intervention and personal management. The time I documented below is in addition to time spent performing reported procedures but includes the following listed in this critical care notation. Total Time Total Critical Care Time: 1 <Mac Vázquez MD - Last Filed: 07/30/24 19:41> Total Time Total Critical Care Time: 70
[2024-07-30 18:51] LABS: Albumin Level 2.7 g/dl (3.5-5.0); Chloride 106 mmol/L (98-107); Potassium 5.4 mmoL/L (3.5-5.1); Sodium 136 mmol/L (136-145)
[2024-07-30 18:54] LABS: Alanine Aminotransferase 28 U/L (12-78); Alkaline Phosphatase 62 U/L (38-126); Anion Gap 7.4 mEq/L (5-15); Aspartate Amino Transferase 32 U/L (17-59); Bilirubin,Total 0.7 mg/dl (0.2-1.3); Blood Urea Nitrogen 55 mg/dl (9-20); Calcium 8.6 mg/dl (8.4-10.2); Carbon Dioxide 28 mmol/L (22.0-30.0); Estimated Glomerular Filt Rate 66 ml/min (>60); GFR (African American) 80 ML/MIN (>60); Globulin 2.6 g/dL (1.3-3.2); Glucose 135 mg/dl (74-100); Lipase 260 U/L (23-300); Total Protein,Serum 5.3 g/dl (6.3-8.2)
[2024-07-30 18:58] LABS: Lymphocytes % 21 % (10-50); Monocytes % 10 % (2-9); Neutrophils % 67 % (42-76); Platelet Estimate Slight Increase; Promyelocytes % 2 %; RBC Morphology Normal; Total Cells Counted 100
[2024-07-30 19:11] LABS: Activated Partial Thrombo Time 29.7 seconds (22.8-30.6); INR 1.07 (0.9-1.1); Prothrombin Time 11.9 seconds (10.1-12.5)
[2024-07-30 19:12] LABS: Hemoglobin A1C 5.8 % (4.0-6.0)
--- NOTE | 2024-07-30 19:12 | PC.NURSE ---
EMERGENT BLOOD REQUESTED
[2024-07-30 19:16] LABS: Lactic Acid 1.8 mmol/L (0.7-2.1)
--- NOTE | 2024-07-30 19:53 | PC.NURSE ---
report called ROSA Duarte
[2024-07-30] MEDS: [UNRECOGNIZED DRUG - MIXTURE] 180 MG IV (20:05)
[2024-07-30] MEDS: PANTOPRAZOLE 40MG VIAL 40 MG IV (20:05)
[2024-07-30] MEDS: [UNRECOGNIZED DRUG - MIXTURE] 24 MG IV (20:05)
[2024-07-30] MEDS: [UNRECOGNIZED DRUG - OTHER] IV (20:06)
[2024-07-30] MEDS: AMPICILLIN/SULBACTAM 3 GM in 0.9 % SODIUM CHLORIDE 100 ML IV (20:06)
--- NOTE | 2024-07-30 20:54 | PC.NURSE ---
Addendum entered by Maddi Pelletier RN 08/01/24 00:23: Emergent blood brought to the floor by lab, emergent order confirmed with MD. Correct patient verified and 2 units of uncrossed blood verified at bedside. See blood transfusion vital signs paper. Addendum entered by Maddi Pelletier RN 07/31/24 00:52: 1 unit finished at 1951. Original Note: pt became symptomatic @ 1909. Manual BP take, 78/52. 1 L LR bolus given, notifed and ordered emergent blood transfusion, 2 units. Lab notified @ 1914 and blood brought to floor at 1919. second IV started by [facility]. 1 unit began at 1924 and finished at 1956. 2 unit began at 1951 and finished at 2014. Andexxa bolus given and drip started per OCT. [employer] [facility] [employer] called and declined flights due to weather. EMS called and transferred pt @ 2034
[2024-07-30 21:05] LABS: HIV Combo NEGATIVE (Negative)
== END 2024-07-30 21:09 | disposition short-term general hospital (02) ==
PROVIDERS: Emergency Provider Emergency Medicine; PCP Family Medicine
DX: D64.9 Anemia, unspecified (principal); R57.8 Other shock; K92.2 Gastrointestinal hemorrhage, unspecified; R14.0 Abdominal distension (gaseous); K92.0 Hematemesis
CPT/HCPCS: 36415; 80053; 83036; 83605; 83690; 85007; 85025; 85027; 85610; 85730; 86850; 87389; 93005; 96365; 96374; 96375; 99291; J0295; J7169; P9016

== ENCOUNTER 2024-10-10 13:49 | Outpatient (CLI) | payer OTHER, MEDICAID, SELFPAY ==
--- NOTE | 2024-10-10 13:55 | XR_ITS ---
FINAL REPORT CLINICAL HISTORY: HIP PAIN COMPARISON: None FINDINGS: RIGHT HIP Two views of the right hip and an AP pelvis view were obtained. There is no acute fracture or dislocation. The joint spaces are well-preserved. The visualized bony structures are well aligned. There is no acute soft tissue abnormality. IMPRESSION: No acute abnormality identified. Reviewed, Interpreted and Dictated by Derrick Mcpherson MD Transcribed by Gale Morrison Authenticated and [facility]
== END 2024-10-10 23:59 | disposition home or self-care (01) ==
LOC: RAD 13:51
PROVIDERS: PCP Family Medicine; Visit Provider Nurse Practitioner
DX: M25.551 Pain in right hip (principal)
CPT/HCPCS: 73502

== ENCOUNTER 2024-12-27 07:08 | Day surgery (SDC) | payer MEDICARE, OTHER, SELFPAY ==
[2024-12-27] VITALS (7 sets, daily range): BP systolic 121–133; BP diastolic 73–80; PULSE 76–87; RESP 16; TEMP 36.3–36.6; O2SAT 98–100
[2024-12-27] MEDS: CYCLOPENTOLATE 2% OPHTH SOLN 2ML BOTTLE OP ×3 (08:30→08:40)
[2024-12-27] MEDS: TETRACAINE 0.5% OPTH SOL 15ML OP ×3 (08:30→08:40)
[2024-12-27] MEDS: PHENYLEPHRINE 2.5% OPHTH SOLN 2ML OP ×3 (08:30→08:40)
[2024-12-27] MEDS: MIDAZOLAM 2MG/2ML VIAL 1 MG IV (09:17)
[2024-12-27] MEDS: SODIUM CHLORIDE 0.9% 10ML FLUSH SYRINGE 10 ML IV (09:17)
[2024-12-27] MEDS: TIMOLOL 0.5% OPTH SOLN 5ML OP (09:25)
[2024-12-27] MEDS: LIDOCAINE 1% PF 2ML AMPULE 2 ML IJ (09:26)
[2024-12-27] MEDS: TOBRAMYCIN/DEX OPTH SUSP 2.5ML OP (09:26)
--- NOTE | 2024-12-27 12:37 | P.PCN_ITS ---
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 The patient reports that this interferes with ADLs such as reading, watching TV and/or driving or the vision is like looking through a foggy haze and is very troubling. The patient was examined and found to have a visually significant cataract with best corrected vision of [20/LP] by refraction and/or glare testing. Treatment options, risks and benefits were explained and the patient elected to have cataract surgery in an attempt to improve their vision. The patient had the eye anesthetized with topical tetracaine, the eye ways prepped and draped in the usual fashion for cataract surgery. A paracentesis and a temporal keratotomy were made. 0.2cc of 1% lidocaine PF was placed into the anterior chamber. Vision blue was instilled into the anterior chamber and allowed to sit for 15-20 seconds and then removed by I&A. And aqueous/viscoelastic exchange was done and a 360 degree capsulorexis was performed. Through hydrodissection and delineation with BSS on a cannula was done. The lens nucleus was phecoemulsified with CDE of [30.74]. A nasal 90 degree zonuar dialysis was observed. A 13mm diameter capsular tension ring was placed into the cpsular bag to support the dialysis.. Residual cortical material was removed using automated I&A The capsular bag was deepened with viscoelastica and a PCIOL was placed in the capsular bag with good centration and stability. Residual viscoelastic was removed using automated I&A. The keratotomy incision was hydrated with BSS on a cannula. The wound were checked and found to be water tight. IOP was checked digitally and adjusted as needed so as not to be too high. 1 drop of timolol 0.5%, ofloxacin, prednisolone acetate and ketorolac was instilled and eye shield taped over the eye. The patient was taken to recovery in good condition and will be seen postoperatively.
== END 2024-12-27 09:53 | disposition home or self-care (01) ==
PROVIDERS: PCP Family Medicine; Visit Provider Ophthalmology
DX: H25.812 Combined forms of age-related cataract, left eye (principal)
CPT/HCPCS: 66982; J2250; V2632

== ENCOUNTER 2025-01-10 09:05 | Day surgery (SDC) | payer MEDICARE, OTHER, SELFPAY ==
[2025-01-09 15:48] VITALS: BMI 27.8
[2025-01-10 09:55] VITALS: BP 141/89; PULSE 77; RESP 18; TEMP 36.7; O2SAT 99
[2025-01-10] MEDS: TETRACAINE 0.5% OPTH SOL 15ML OP ×3 (09:55→10:05)
[2025-01-10] MEDS: CYCLOPENTOLATE 2% OPHTH SOLN 2ML BOTTLE OP ×3 (09:55→10:05)
[2025-01-10] MEDS: PHENYLEPHRINE 2.5% OPHTH SOLN 2ML OP ×3 (09:55→10:05)
[2025-01-10 11:18] VITALS: BP 133/80; PULSE 69; RESP 18; TEMP 36.6; O2SAT 97
[2025-01-10] MEDS: MIDAZOLAM 2MG/2ML VIAL 1 MG IV (11:18)
[2025-01-10] MEDS: SODIUM CHLORIDE 0.9% 10ML FLUSH SYRINGE 10 ML IV (11:18)
[2025-01-10 11:23] VITALS: BP 126/72; PULSE 75; RESP 18; TEMP 36.6; O2SAT 98
[2025-01-10 11:28] VITALS: BP 121/76; PULSE 67; RESP 18; TEMP 36.6; O2SAT 97
[2025-01-10] MEDS: TOBRAMYCIN/DEX OPTH SUSP 2.5ML OP (11:29)
[2025-01-10] MEDS: LIDOCAINE 1% PF 2ML AMPULE 2 ML IJ (11:29)
[2025-01-10] MEDS: TIMOLOL 0.5% OPTH SOLN 5ML OP (11:29)
[2025-01-10 11:33] VITALS: BP 119/74; PULSE 68; RESP 18; TEMP 36.6; O2SAT 99
[2025-01-10 11:38] VITALS: BP 142/79; PULSE 75; RESP 18; TEMP 36.2; O2SAT 99
--- NOTE | 2025-01-10 13:25 | HMH.PROCNOTE ---
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 The patient reports that this interferes with ADLs such as reading, watching TV and/or driving or the vision is like looking through a foggy haze and is very troubling. The patient was examined and found to have a visually significant cataract with best corrected vision of [20/400] by refraction and/or glare testing. Treatment options, risks and benefits were explained and the patient elected to have cataract surgery in an attempt to improve their vision. The patient had the eye anesthetized with topical tetracaine, the eye ways prepped and draped in the usual fashion for cataract surgery. A paracentesis and a temporal keratotomy were made. 0.2cc of 1% lidocaine PF was placed into the anterior chamber. And aqueous/viscoelastic exchange was done and a 360 degree capsulorexis was performed. Through hydrodissection and delineation with BSS on a cannula was done. The lens nucleus was phecoemulsified with CDE of [6.50]. Residual cortical material was removed using automated I&A The capsular bag was deepened with viscoelastica and a PCIOL was placed in the capsular bag with good centration and stability. Residual viscoelastic was removed using automated I&A. The keratotomy incision was hydrated with BSS on a cannula. The wound were checked and found to be water tight. IOP was checked digitally and adjusted as needed so as not to be too high. 1 drop of timolol 0.5%, ofloxacin, prednisolone acetate and ketorolac was instilled and eye shield taped over the eye. The patient was taken to recovery in good condition and will be seen postoperatively.
== END 2025-01-10 11:45 | disposition home or self-care (01) ==
PROVIDERS: PCP Family Medicine; Visit Provider Ophthalmology
PROC: (CPT 66984; principal; 2025-01-10 11:30)
DX: H25.811 Combined forms of age-related cataract, right eye (principal); J44.9 Chronic obstructive pulmonary disease, unspecified; I10 Essential (primary) hypertension; M19.90 Unspecified osteoarthritis, unspecified site; Z97.3 Presence of spectacles and contact lenses; Z96.1 Presence of intraocular lens; Z87.891 Personal history of nicotine dependence; Z79.51 Long term (current) use of inhaled steroids; Z79.899 Other long term (current) drug therapy; Z79.01 Long term (current) use of anticoagulants
CPT/HCPCS: 66984; J2250; V2632

== ENCOUNTER 2025-02-05 14:00 | Inpatient (IN) | payer MEDICARE, OTHER, SELFPAY ==
[2025-02-05] VITALS (9 sets, daily range): BP systolic 123–144; BP diastolic 50–93; PULSE 91–125; RESP 16–22; TEMP 36.4–38.4; O2SAT 94–98; BMI 30.7; BMI 28.6
--- NOTE | 2025-02-05 13:53 | ECG_ITS ---
APPROVED REPORT Exam: Resting ECG HR:127 bpm ECG Measurements Heart Rate 127 AXES TX 138 P 68 QRSd 82 QRS 34 QT 291 T 55 QTc 366 Conclusion SINUS TACHYCARDIA No STEMI Electronically signed by : BINA DUNN, 02/05/2025 15:41:57
--- NOTE | 2025-02-05 13:57 | XR_ITS ---
PROCEDURE INFORMATION: Exam: XR Chest Exam date and time: 02/05/2025 2:56 PM Age: 69 years old Clinical indication: Shortness of breath; Additional info: SOA, diminished breath sounds L TECHNIQUE: Imaging protocol: Radiologic exam of the chest. Views: 1 view. COMPARISON: CT ANGIO CHEST PE PROTOCOL 02/05/2025 2:54 PM FINDINGS: Lungs: Subtle left retrocardiac opacities compatible with the infiltrates noted on the CT. The other infiltrates not clearly seen on the chest x-ray. COPD. Pleural spaces: Unremarkable. No pleural effusion. No pneumothorax. Heart/Mediastinum: Unremarkable. No cardiomegaly. Bones/joints: Unremarkable. IMPRESSION: Left lower lobe infiltrates. Other infiltrates noted on CT not clearly identified on the chest x-ray.
--- NOTE | 2025-02-05 13:57 | CT_ITS ---
PROCEDURE INFORMATION: Exam: CTA Chest With Contrast Exam date and time: 02/05/2025 2:54 PM Age: 69 years old Clinical indication: Shortness of breath; Additional info: SOA, h/o pe, diminished breath sounds L TECHNIQUE: Imaging protocol: Computed tomographic angiography of the chest with contrast. Exam focused on the arteries. 3D rendering (Not supervised by radiologist): MIP and/or 3D reconstructed images were created by the technologist. Radiation optimization: All CT scans at this facility use at least one of these dose optimization techniques: automated exposure control; mA and/or kV adjustment per patient size (includes targeted exams where dose is matched to clinical indication); or iterative reconstruction. Contrast material: ISOUVE 370; Contrast volume: 70 ml; Contrast route: INTRAVENOUS (IV); COMPARISON: 1. CT ANGIO CHEST PE PROTOCOL 07/21/2024 8:[address] CHEST WO/W CON 04/26/2020 2:19 PM FINDINGS: Pulmonary arteries: Normal. No pulmonary emboli. Aorta: Unremarkable. No aortic aneurysm. No aortic dissection. Thyroid: Enlarge nodule extending posteriorly from the left lobe of the thyroid measuring up to 4.6 cm and previously measured 3.[address] of 04/26/[address] of 07/21/2024. Lungs: Severe emphysematous changes redemonstrated. Multifocal patchy mixed consolidative and ground-glass opacities in the posterior medial right lower lobe and inferior left lower lobe anteriorly and posteriorly. Additional areas of ground-glass opacities noted in the right middle lobe and posterior mid left upper lobe and inferior lingula. Lung fya otherwise clear. Pleural spaces: Unremarkable. No pneumothorax. No pleural effusion. Heart: Unremarkable. No cardiomegaly. No pericardial effusion. Coronary arteries: Moderate coronary artery calcifications suggesting coronary artery disease. Lymph nodes: Mild mediastinal lymphadenopathy and left infrahilar adenopathy similar to previous. Bones/joints: Unremarkable. No acute fracture. Soft tissues: Unremarkable. IMPRESSION: 1. Multifocal mixed consolidative and ground-glass opacities bilaterally most pronounced in the lower lobes [id number] suggesting multifocal pneumonia. Advise follow-up to ensure resolution. 2. Mediastinal and hilar adenopathy redemonstrated. 3. Moderate coronary artery calcifications suggesting coronary artery disease. 4. A 4.6 cm nodule extending posteriorly from the left lobe of the thyroid with interval increase in size. Advise further assessment with nonemergent ultrasound of the thyroid. COMMENTS: The presence of pulmonary emphysema on CT is an independent risk factor for lung cancer. In the absence of a history or active diagnosis of lung cancer, it is recommended that this patient with emphysema be evaluated for enrollment in a low dose CT lung cancer screening program.
--- OUTSIDE RECORDS SUMMARY | 2025-02-05 14:04 | XMS_ITS | Clinical Summary ---
Author Organization Healthcare Address [address] [place] [address] Care Team Providers Care Instructor Dramatic Arts Name Role Phone Pcp, No Primary Care Provider Unavailabl e Allergies No known active allergies Medications Eliquis 5 MG tablet Take 1 tablet (5 mg) by mouth 2 (two) times a day. 07/26/2024 Active amLODIPine (Norvasc) 10 MG tablet Take 1 tablet (10 mg) by mouth 1 (one) time each day. Active atorvastatin (Lipitor) 40 MG tablet Take 1 tablet (40 mg) by mouth 1 (one) time each day. Active bumetanide (Bumex) 1 MG tablet Take 0.5 tablets (0.5 mg) by mouth 1 (one) time each day. Active Fluticasone-Ume clidin-Vilant (Trelegy Ellipta) 100-62.5-25 MCG/ACT aerosol powder Inhale 1 puff 1 (one) time each day. Active lisinopril 20 MG tablet Take 1 tablet (20 mg) by mouth 1 (one) time each day. Active pantoprazole (Protonix) 40 MG EC tablet Take 1 tablet (40 mg) by mouth 2 (two) times a day. Do not crush, chew, or split. 60 tablet 1 08/02/2024 Active Active Problems Problem Noted Date Diagnosed Date Acute GI bleeding 07/30/2024 Social History Tobacco Use Types Packs/Day Years Used Date Smoking Tobacco: Former Cigarettes 1 1.5 S tarted: 08/01/2023 Tobacco Cessation:Counseling Given: Not Answered Alcohol Use Standard Drinks/Week Comments Not Currently 0 (1 standard drink = 0.6 oz pur e alcohol) has been Sex and Gender Information Value Date Recorded Sex Assigned at Not on file Legal Sex Male 7:24 PM EST Gender Identity Not on file Sexual Orientation Not on file Last Filed Vital Signs Vital Sign Reading Time Taken Comments Blood Pressure 102/68 08/02/2024 11:24 AM EST Pulse 76 08/02/2024 11:24 AM EST Temperature 36.4 C (97.6 F) 08/02/2024 11:24 AM EST Respiratory Rate 16 08/02/2024 7:51 AM EST Oxygen Saturation 97% 08/02/2024 7:51 AM EST Inhaled Oxygen Concentration - - Weight 96.7 kg (213 lb 3 oz) 08/02/2024 12:00 AM EST Height 180.3 cm (5' 10.98 ) 08/02/2024 12:00 AM EST Body Mass Index 29.75 08/02/2024 12:00 AM EST Plan of Treatment Health Maintenance Due Date Last Done Comments [facility]-Depression Screening 1954 [facility]Medicare Annual Wellness (AWV) 1954 [facility]-/Child/Adol SDOH Screenings 1954 [facility]- SDOH Screenings 1972 [facility]-Adult SDOH Screenings 1972 [facility]-Hepatitis A Vaccines (1 of 2 - Risk 2-dose series) 1973 [facility]-Pneumococcal Vaccine: 50 + Years (1 of 2 - PCV) 1973 [facility]-DTaP,Tdap,and Td Vaccine s (1 - Tdap) 10/07/1996 10/06/1996 CT Colonography 1999 Colonoscopy 1999 FIT-DNA 1999 FIT 1999 FOBT 1999 Sigmoidoscopy 1999 [facility]-Colorectal Cancer Screening 1999 [facility]-Zoster Vaccines (1 of 2) 2004 [facility]-RSV Vaccine: 60+ Years o r (1 - Risk 60-74 years 1-dose series) 2014 [facility]-Abdominal Aortic Aneurys m (AAA) Screening 2019 [id number] Vaccine (1 - 20 24-25 season) 2024 Gastroscopy (EGD) 09/26/2024 08/01/2024 [facility]-Influenza Vaccine (#1) 2025 [facility]-Hepatitis C Screening Completed 07/30/2024 [facility]-Obesity Intervention Completed 07/30/2024 HPV Vaccines Aged Out No longer eligi ble based on patient's age to complete this topic [facility]-HIB Vaccines Aged Out No longer e ligible based on patient's age to complete this topic [facility]-IPV Vaccines Aged Out No longer e ligible based on patient's age to complete this topic [facility]-Rotavirus Vaccines Aged Out No lo nger eligible based on patient's age to complete this topic Procedures Procedure Name Priority Date/Time Associated Diagnosis Comments EGD Routine 08/01/2024 1:10 PM EST Hematemesis, unspecified whether nausea present HEPATITIS C ANTIBODY - ED W/REFLEX TO HCV QUANT PCR STAT 07/30/2024 9:47 PM EST from Last 3 Months or Most Recently Relevant to Health Maintenance Results * EGD NEGRA DYERITIJ; 08/01/2024 (08/01/2024 1:10 PM EST) Anatomical Region Laterality Modality Endoscopy Narrative 08/02/2024 7:26 AM EST Table formatting from the original result was not included. Impression: The upper third of the esophagus and middle third of the esophagus appeared normal. Grade C esophagitis in the lower third of the esophagus and GE junction Single ulcer in the cardia with flat pigmented spot (Alex IIC) Single small (3mm) angioectasia in the fundus of the stomach, no active bleeding Moderate abnormal mucosa with erosion in the antrum The duodenal bulb and 2nd part of the duodenum appeared normal. Recommendations Repeat EGD in 6-8 weeks, due: 09/26/2024 - [facility] to same [facility] for [facility] care. - Send for H. Pylori Stool Ag, treat if positive - BID PPI 40mg until repeat EGD in 6-8wks - Avoid NSAIDs and EtOH - OK to restart diet, full liquids and advance as tolerating - Monitor for post-procedure complications abdominal pain, fever, gastrointestinal bleeding and call business line controller GI if present. - Findings and recommendations were discussed with patient. - Findings and recommendations to be conveyed to primary team. Indication Hematemesis, unspecified whether nausea present Medications See anesthesia record for anesthesia administered medications. Staff Staff Role Mary Bueno RN Endo Nurse Shanna Silvestre Endo Wheel Cutter Derrick Dash MD Anesthesiologist Latasha Curry CRNA CRNA Thakur, Kshitij, MD Proceduralist Claudio Garcia MD Fellow Preprocedure A history and physical has been performed, and patient medication allergies have been reviewed. The patient's tolerance of previous anesthesia has been reviewed. The risks and benefits of the procedure and the sedation options and risks were discussed with the patient. All questions were answered and informed consent obtained. Details of the Procedure The patient underwent general anesthesia, which was administered by an anesthesia professional. The patient's blood pressure, heart rate, level of consciousness, oxygen and respirations were monitored throughout the procedure. The scope was introduced through the mouth and advanced to the second part of the duodenum. Retroflexion was performed in the cardia, fundus and incisura. Prior to the procedure, the patient's H. Pylori status was unknown. The patient experienced no blood loss. The procedure was not difficult. The patient tolerated the procedure well. There were no apparent adverse events. Attestation I was present for the entire procedure Specimens No specimens were documented in this log. Findings The upper third of the esophagus and middle third of the esophagus appeared normal. Grade C esophagitis in the lower third of the esophagus and GE junction Single ulcer in the cardia with flat pigmented spot (Alex IIC) Single small (3mm) angioectasia in the fundus of the stomach, no active bleeding Moderate abnormal mucosa with erosion in the antrum The duodenal bulb and 2nd part of the duodenum appeared normal. us Andrew Joseph MD GI PROCEDURE ORDERABLES Final R esult * Hepatitis C Antibody - ED (07/30/2024 9:47 PM EST) Hepatitis C Antibody Negative Negative 07/30/2024 10:39 PM EST [facility] Blood Venous blood specimen / Unknown Venipuncture / Unknown 07/30/2024 9:47 PM EST 07/30/2024 9:58 PM EST us [facility] BLOOD ORDERABLES Final Result [facility] [address] [place] [address] from Last 3 Months or Most Recently Relevant to Health Maintenance Insurance [facility] MEDICAID Advance Directives * Full Code (Latest Code Status on File) Date Activated Date Inactivated Comments 07/30/2024 11:53 PM 08/02/2024 3:16 PM Question Answer Comments Patient has decision-making capacity? Yes Care Teams Instructor Dramatic Arts Relationship Specialty Start Date End Date Pcp, No [address] [place] [address] PCP - General Family Medicine 07/26/24
--- NOTE | 2025-02-05 14:06 | ED_ITS ---
Discharge Plan Disposition Patient Disposition: Admitted Condition: Fair Clinical Impressions Clinical Impression: Sepsis due to pneumonia, Acute exacerbation of chronic obstructive pulmonary disease Discharge ED Provider: Karey Tillman HPI General Chief Complaint: Shortness of Breath/Dyspnea Stated Complaint: SOA Time Seen by Provider: 02/05/25 14:00 History of Present Illness HPI narrative: This patient is a 69-year-old male with a history of prior tobacco use with resultant COPD not on home oxygen, hypertension, hyperlipidemia, COVID-pneumonia complicated by PEs on Eliquis, and prior GI bleed secondary to peptic ulcer disease presenting to the emergency department for evaluation with concern for shortness of breath. Patient notes that for the last several days, he has been feeling like he cannot catch his breath. He notes that he has also had fevers, chills, and cough. He also states that he has midsternal chest pain that is especially worse when he takes a deep breath. He also notes his heart rate has been high. He arrives by EMS who noted they gave a DuoNeb and 125 mg of Solu- Medrol en route. They note sinus tachycardia en route with otherwise normal vital signs. They did put him on 2 L nasal cannula for comfort. On review of systems, he also admits to diarrhea which is nonbloody nonmelanotic. No other concerns or complaints noted such as abdominal pain, vomiting, calf pain or swelling, or other concerns. Related Data Previous Rx's ?Medication ?Instructions ?Recorded amlodipine 10 mg tablet 10 mg PO DAILY 30 days #30 t abs 07/26/24 apixaban 5 mg tablet (Eliquis) See Rx Instructions .[facility] [place] 07/26/24 .COMPLEX 30 days #68 tabs atorvastatin 40 mg tablet 40 mg PO HS 30 days #30 tabs 07/26/24 bumetanide 0.5 mg tablet 0.5 mg PO DAILY #30 tabs doxycycline hyclate 100 mg tablet 100 mg PO Q12H 1 day #2 tabs 07/26/24 fluticasone fur. 100 mcg-umeclid 1 inh inhalation JESSICA Y #60 ea 07/26/24 62.5 mcg-vilant 25 mcg inhalat.powder (Trelegy Ellipta) lisinopril 20 mg tablet 20 mg PO DAILY 30 days #30 t abs 07/26/24 Allergies Allergy/AdvReac Type Severity Reaction Status Date / Time No Known Allergies Allergy Verified 01/10/25 09:53 [facility] Disclaimer: The information contained in this section may have been updated after the patient was seen, as this information can be updated by other users. Medical History HTN (hypertension) Pneumonia due to COVID-19 virus Osteoarthritis COPD (chronic obstructive pulmonary disease) Surgical History History of cataract surgery Family History Other Colon cancer Lung cancer Social History Smoking Status: Never smoker alcohol intake: never substance use type: denies use current occupational status: other Travel in the last 8 weeks?: None Have you lived/traveled outside US in past 30 days?: No Contact w/someone who lives/traveled outside US past 30 days?: No Exposure to someone with infectious disease in past 14 days?: No Do you have a fever (greater than 100.4 F or 38 C)?: No Have you tested positive for COVID-19?: No Exposed to someone with COVID-19 in past 14 days?: No Do you have a sore throat?: No Do you have a cough?: No Do you have any weakness?: No Do you have any diarrhea?: No Are you experiencing any unusual bleeding?: No Do you have any muscle aches/pain?: No Do you have any abdominal pain?: No Are you experiencing loss of taste or smell?: No Other Medical History Have you received the Flu Vaccine for this season: No Have you received the Pneumonia Vaccine: No ROS Obtained: Yes All systems reviewed & no additional complaints except as documented Physical Exam General General appearance: alert Comment: Ill-appearing Head Head exam: atraumatic and normocephalic Eye Eye exam: Present normal appearance, PERRL and EOMI ENT ENT exam: Present normal exam, normal oropharynx, mucous membranes moist and normal external ear exam Neck Neck exam: Present normal inspection, full ROM and trachea midline; Absent tenderness Chest Chest inspection: Present normal inspection and symmetric chest wall rise; Absent tenderness Respiratory Respiratory exam: Present wheezes, accessory muscle use, prolonged expiratory phase and other (Significantly diminished breath sounds on the left, wheezing noted on the right); Absent respiratory distress or stridor Cardiovascular Cardiovascular exam: Present normal rhythm and tachycardia Abdominal Exam Abdominal exam: Present soft; Absent distention, tenderness or guarding Extremities Exam Extremities exam: Present normal inspection, full ROM and normal capillary refill; Absent tenderness or edema Back Exam Back exam: Present normal inspection and full ROM; Absent tenderness Neurological Exam Neurological exam: Present alert, oriented X3, CN II-XII intact and normal gait; Absent motor sensory deficit Psychiatric Psychiatric exam: Present normal affect and normal mood Skin Skin exam: Present warm and dry HEART Score HEART Score HEART Score assessment performed?: Yes History (anamnesis): Moderately suspicious ECG: Normal Age: >65 years Risk factors: 1-2 risk factors Troponin: </= normal limit HEART Score: 4 Critical Care Critical Care Time Critical Care Time: Yes Attestation: On 02/05/25, the high probability of a clinically significant, sudden or life threatening deterioration of the following system(s) required my full and direct attention, intervention and personal management. The time I documented below is in addition to time spent performing reported procedures but includes the following listed in this critical care notation. Total Time Total Critical Care Time: 35 Medical Decision Making Lc Inquiry Pt receiving controlled substance: No Vital Signs Vital Signs: 02/05/25 13:55 02/05/25 14:01 02/05/25 14:08 Temperature 101.1 F H 101.1 F H Temperature Source Oral Oral Pulse Rate 124 H 125 H Pulse Rate [Right] 125 H Respiratory Rate 20 18 20 Blood Pressure 129/50 L 144/82 H Blood Pressure [Right Arm] 144/82 H Blood Pressure Mean [Right Arm] 102 Blood Pressure Source Automatic Cuff Blood Pressure Source [Right Arm] Automatic Cuff Blood Pressure Position Supine Blood Pressure Position [Right Arm] Supine 02 Sat by Pulse Oximetry 95 95 95 Oxygen Delivery Method Nasal Cannula Nasal Cannula Oxygen Flow Rate (LPM) 5 2 02/05/25 14:30 02/05/25 15:30 Temperature Temperature Source Pulse Rate 106 H Pulse Rate [Right] Respiratory Rate 22 16 Blood Pressure 129/93 H 124/79 Blood Pressure [Right Arm] Blood Pressure Mean [Right Arm] Blood Pressure Source Blood Pressure Source [Right Arm] Blood Pressure Position Blood Pressure Position [Right Arm] 02 Sat by Pulse Oximetry 95 Oxygen Delivery Method Oxygen Flow Rate (LPM) Lab Data Labs: Lab Results 02/05/25 13:50: SARS-CoV-2 (PCR) Not detected, Influenza A Untype (PCR) Not detected, Influenza Type B (PCR) Not detected 02/05/25 13:52: WBC 11.5 H, RBC 3.76 L, Hgb 9.0 L, Hct 29.8 L, MCV 79.3 L, MCH 23.9 L, MCHC 30.2 L, RDW 17.9 H, Plt Count 283, MPV 9.3, Neut % (Auto) 68.3, Lymph % (Auto) 22.7, [place] % (Auto) 8.1, Eos % (Auto) 0.1, Baso % (Auto) 0.4, N eut # (Auto) 7.9 H, Lymph # (Auto) 2.6, [place] # (Auto) 0.9, Eos # (Auto) 0.0, Baso # (Auto) 0.1, PT 11.8, INR 1.07, APTT 30.0, VBG pH 7.42 H, VBG pCO2 35.2, V BG pO2 53.3 H, VBG HCO3 22.5 L, VBG Total CO2 23.6, VBG O2 Saturation 86.4 H, VBG Base Excess -1.9, VBG Lactic Acid 1.9, Sodium 136, Potassium 4.4, Chloride 101, Carbon Dioxide 25, Anion Gap 14.4, BUN 24 H, Creatinine 1.40 H, Estimated Creat Clear 69, Estimated GFR 50 L, Est GFR ( Amer) 61, Glucose 97, Calcium 8.8, Total Bilirubin 0.7, AST 58, ALT 40, Alkaline Phosphatase 70, Troponin I 0.02, NT-Pro-B Natriuret Pep 341 H, Total Protein 6.9 D, Albumin 4.0, Globulin 2.9, Albumin/Globulin Ratio 1.4, Lipase 59 02/05/25 13:52 02/05/25 13:52 Response Orders (Tests/Meds): ED MEDICATIONS Generic Name Dose Route Start Last Admin Trade Name Freq PRN Reason Stop Dose Admin Acetaminophen 650 mg 02/05/25 15:09 Acetaminophen 325mg Tab PO 03/07/25 15:08 Q4HP PRN Fever or Mild Pain (1-3) Hydrocodone Bitart/Acetaminophen 1 tab 02/05/25 15:09 Hydrocodone/Apap 5/325 Mg Tablet PO 03/07/25 15:08 Q4HP PRN Mild to Moderate Pain (1-6) Albuterol/Ipratropium 3 ml 02/05/25 18:00 Ipratropium/Albuterol 3 Ml Neb 03/07/25 17:59 Q6RT SHARONA Heparin Sodium (Porcine) 5,000 unit 02/05/25 21:00 Heparin Sodium 5,000 Unit/Ml Vial SUBCUT 03/07/25 20:59 TID SHARONA Lactated Ringer's 2,260 mls @ 1,130 mls/hr 02/05/25 14:11 02/05/25 14:27 Lactated Ringer's 1000 Ml Bag 30 ml/kg infuse over 2 hr (2260 ml) 02/05/25 16:10 1,130 mls/hr IV Administration .Q2H ONE Nicotine 21 mg 02/05/25 15:09 Nicotine 21mg/24hr Patch TD 03/07/25 15:08 DAILYP PRN Nicotine Cravings Ondansetron HCl 4 mg 02/05/25 15:09 Ondansetron 4mg/2ml Vial IV 03/07/25 15:08 Q8HP PRN Nausea Sodium Chloride 10 ml 02/05/25 14:51 Sodium Chloride 0.9% 10ml Syr (Rad Only) IV 03/07/25 14:50 NEEDED PRN Maintain IV Site Discontinued Medications Generic Name Dose Route Start Last Admin Trade Name Freq PRN Reason Stop Dose Admin Acetaminophen 1,000 mg 02/05/25 14:12 02/05/25 14:27 Acetaminophen 1,000mg/100ml Vial IV 02/05/25 14:13 1,000 mg ONCE ONE Administration Albuterol/Ipratropium 9 ml 02/05/25 14:00 02/05/25 14:13 Ipratropium/Albuterol 3 Ml [facility] 02/05/25 14:01 9 ml ONCE ONE Administration Magnesium Sulfate 2 gm in 50 mls @ 50 mls/hr 02/05/25 14:00 02/05/25 14:13 Magnesium Sulfate 2gm/50ml Premix IV 02/05/25 14:59 50 mls/hr ONCE ONE Administration Ceftriaxone Sodium 2 gm/ 100 mls @ 200 mls/hr 02/05/25 15:05 Sodium Chloride IV 02/05/25 15:34 ONCE ONE Azithromycin 500 mg/ Sodium 250 mls @ 250 mls/hr 02/05/25 15:05 Chloride IV 02/05/25 15:06 ONCE ONE Iopamidol 70 ml 02/05/25 14:51 02/05/25 14:54 Iopamidol-370 (76%);100ml Bottle IV 02/05/25 14:52 70 ml ONCE ONE Administration Sodium Chloride 50 ml 02/05/25 14:51 02/05/25 14:54 0.9 % Sodium Chloride 50 Ml Vial IV 02/05/25 14:52 50 ml ONCE ONE Administration ORDERS Category Date Time Status CTA Chest [CT angio chest PE protocol] Stat Cat Scan 02/05/25 13:57 Taken Pulmonology Consult [Consult to Pulmonology] [CONS] Cons 02/05/25 15:09 Active Routine CXR --portable [XR chest portable] Stat Exams 02/05/25 13:57 Taken BNP [NT Pro Brain Natriuretic Pep.] Stat Lab 02/05/25 13:52 Completed Complete Blood Count Auto Diff AMLAB Lab 02/06/25 06:00 Ordered Complete Blood Count Auto Diff Stat Lab 02/05/25 13:52 Completed Comprehensive Metabolic Panel AMLAB Lab 02/06/25 06:00 Ordered Comprehensive Metabolic Panel Stat Lab 02/05/25 13:52 Completed Lipase Stat Lab 02/05/25 13:52 Completed Magnesium AMLAB Lab 02/06/25 06:00 Ordered PT INR [Prothrombin Time INR] Stat Lab 02/05/25 13:52 Completed PTT [Activated Partial Thrombo Time] Stat Lab 02/05/25 13:52 Completed Rapid PCR Covid and Flu A/B Stat Lab 02/05/25 13:50 Completed Trop I [Troponin I] Stat Lab 02/05/25 13:52 Completed Troponin I Q3H Lab 02/05/25 17:00 Ordered Troponin I Q3H Lab 02/05/25 20:00 Ordered Blood Culture Stat Micro 02/05/25 14:10 Received VBG [Venous Blood Gas] Stat RT 02/05/25 13:52 Completed ECG Data Tracing #1: Attestation: I reviewed this ECG and interpreted as documented below: ECG Narrative: Sinus tachycardia with a ventricular [address] changes concerning for STEMI ECG initial impression date: 02/05/25 ECG initial impression time: 13:57 MDM Narrative Medical Decision Narrative: In summary, this patient is a 69-year-old male presenting to the Emergency Department for evaluation of shortness of breath, chest pain, cough, fever. Differential diagnoses considered include but are not limited to pneumonia, sepsis, pneumothorax, PE, ACS, viral syndrome, respiratory failure, COPD exacerbation. Ruling out the most morbid conditions drove assessment. It should be noted patient's history includes COPD, hypertension, hyperlipidemia, prior PE on Eliquis, prior GI bleed which may or may not be at goal therapy. This complicates all aspects of care by increasing patient's risk for morbidity. I reviewed patient's past medical records and noted prior admission for pneumonia/PE/COPD exacerbation as well as prior evaluation for acute GI bleed. On exam, the patient is sitting upright. He is ill-appearing and tachycardic with heart rate in the 130s on initial assessment, sinus tachycardia on the monitor and on EKG. He is febrile to 101.1. He has wheezing bilaterally, diminished breath sounds on the left. He is hypertensive with a normal O2 saturation on room air. Workup included CBC, CMP, troponin, VBG, lactic acid, lipase, coags, TSH, T4, ESR, CRP, viral swab, strep protocol chest x-ray, CTA PE, and EKG. He was given DuoNebs x 3 as well as IV magnesium with concern for severe COPD exacerbation. He already received Solu-Medrol prior to arrival with EMS. He was given sepsis bolus of IV fluids given lack of prior history of CHF. Acetaminophen was given for fever. I independently interpreted CT scan prior to the radiologist read and noted bibasilar infiltrates concerning for pneumonia in this clinical picture. Please see their read for final interpretation. Labs were obtained that demonstrated leukocytosis. He also has mild chronic stable anemia. VBG is reassuring, lactic acid is normal. Kidney function demonstrates mild YARELI with a creatinine of 1.4 from 1.1.. On reassessment, the patient is sitting upright in no acute distress with some improvement after administration of interventions above, but he still is a little bit wheezy with conversational dyspnea. He is on 2 L nasal cannula for comfort. He has received sepsis bolus of IV fluids, and I ordered IV Rocephin and azithromycin for empiric coverage of community-acquired pneumonia. I feel he would benefit from admission for sepsis secondary to pneumonia, COPD exacerbation, and respiratory failure. I had an interactive discussion with the hospitalist who admitted the patient in stable condition
[2025-02-05 14:07] LABS: Lactate Venous 1.9 mmol/L (0.4-2.0); VBG HCO3 22.5 mmol/L (23-30); VBG PCO2 35.2 mmol/L (35-51); VBG PH 7.42 mmol/L (7.31-7.41); VBG PO2 53.3 mmol/L (28-40)
[2025-02-05 14:13] LABS: Hematocrit 29.8 % (42.0-52.0); Hemoglobin 9.0 g/dL (14.1-18.0); Immature Granulocytes % 0.4 %; Mean Corpuscular HGB Conc 30.2 g/dL (31.8-35.4); Mean Corpuscular Hemoglobin 23.9 pg (27.0-31.2); Mean Corpuscular Volume 79.3 fl (80-94); Nucleated Red Blood Cells % 0 %; Platelet Count 283 K/mm3 (142-424); Red Blood Count 3.76 M/mm3 (4.60-6.20); Red Cell Distribution Width-SD 51.7 fL; White Blood Count 11.5 K/mm3 (4.8-10.8)
[2025-02-05] MEDS: IPRATROPIUM/ALBUTEROL 3 ML NEB 9 ML IH (14:13)
[2025-02-05] MEDS: MAGNESIUM SULFATE IN WATER 2 GM/50 ML PIGGYBACK IV (14:13)
[2025-02-05 14:14] LABS: Coronavirus 19, PCR Not Detected (NotDetected); Influenza A, PCR Not Detected (NotDetected); Influenza B, PCR Not Detected (NotDetected)
[2025-02-05] MEDS: ACETAMINOPHEN 1,000MG/100ML VIAL 1000 MG IV (14:27)
[2025-02-05] MEDS: LACTATED RINGERS 1000ML 2,260 ML 1130 ML IV (14:27)
[2025-02-05 14:30] LABS: Alanine Aminotransferase 40 U/L (12-78); Albumin Level 4.0 g/dl (3.5-5.0); Albumin/Globulin Ratio 1.4 (1.1-1.8); Alkaline Phosphatase 70 U/L (38-126); Anion Gap 14.4 mEq/L (5-15); Aspartate Amino Transferase 58 U/L (17-59); Bilirubin,Total 0.7 mg/dl (0.2-1.3); Blood Urea Nitrogen 24 mg/dl (9-20); Calcium 8.8 mg/dl (8.4-10.2); Carbon Dioxide 25 mmol/L (22.0-30.0); Chloride 101 mmol/L (98-107); Creatinine Clearance Estimated 69 mL/min (50-200); Creatinine,Serum 1.40 mg/dl (0.66-1.25); Estimated Glomerular Filt Rate 50 ml/min (>60); GFR (African American) 61 ML/MIN (>60); Globulin 2.9 g/dL (1.3-3.2); Glucose 97 mg/dl (74-100); Lipase 59 U/L (23-300); Potassium 4.4 mmoL/L (3.5-5.1); Sodium 136 mmol/L (136-145); Total Protein,Serum 6.9 g/dl (6.3-8.2)
[2025-02-05 14:36] LABS: Activated Partial Thrombo Time 30.0 seconds (22.8-30.6); INR 1.07 (0.9-1.1); Prothrombin Time 11.8 seconds (10.1-12.5)
[2025-02-05 14:42] LABS: NT Pro Brain Natriuretic Pep. 341 pg/mL (0-125); Troponin I 0.02 ng/ml (0.00-0.034)
[2025-02-05] MEDS: IOPAMIDOL-370 (76%);100ML BOTTLE 70 ML IV (14:54)
[2025-02-05] MEDS: 0.9 % SODIUM CHLORIDE 50 ML VIAL IV (14:54)
--- NOTE | 2025-02-05 15:08 | PC.NURSE ---
called house for bed
--- NOTE | 2025-02-05 15:11 | EXP.HP ---
History of Present Illness *Admission Date: 02/05/25 *Reason for visit:: dyspnea *History of present illness: -year-old male with COPD, former smoker, on Eliquis for PE after having COVID in July. Presented to the ER with worsening shortness of breath over the past 24 to 48 hours. Denies nausea, vomiting, diarrhea, syncope. No joss chest pain. Does have back pain from coughing. Initially was tachycardic, tachypneic, hypoxic necessitating supplemental oxygen. Initiated on serial nebulizers. Concern for sepsis and pneumonia with multifocal pneumonia on chest CT. Given his respiratory distress, new oxygen requirement, and sepsis, medicine was consulted for admission. Received ceftriaxone and azithromycin in the ED prior to admission. On arrival to the floor, patient is stable on 2 L oxygen. Still appears in mild distress. Able to complete sentences and give history. Is quite tired and complaining of back pain. No known sick contacts. Denies productive cough. States he has not smoked in a year. [facility] Disclaimer: The information contained in this section may have been updated after the patient was seen, as this information can be updated by other users. Medical History HTN (hypertension) Pneumonia due to COVID-19 virus Osteoarthritis COPD (chronic obstructive pulmonary disease) Surgical History History of cataract surgery Family History Other Colon cancer Lung cancer Social History Smoking Status: Never smoker alcohol intake: never substance use type: denies use current occupational status: other Travel in the last 8 weeks?: None Have you lived/traveled outside US in past 30 days?: No Contact w/someone who lives/traveled outside US past 30 days?: No Exposure to someone with infectious disease in past 14 days?: No Do you have a fever (greater than 100.4 F or 38 C)?: No Have you tested positive for COVID-19?: No Exposed to someone with COVID-19 in past 14 days?: No Do you have a sore throat?: No Do you have a cough?: No Do you have any weakness?: No Do you have any diarrhea?: No Are you experiencing any unusual bleeding?: No Do you have any muscle aches/pain?: No Do you have any abdominal pain?: No Are you experiencing loss of taste or smell?: No Other Medical History Have you received the Flu Vaccine for this season: No Have you received the Pneumonia Vaccine: No Review of Systems Review of Systems Review of systems (narrative): 14 point review of systems performed, pertinent positives and negatives as per [facility] Meds Home Medications and Allergies Home Medications ?Medication ?Instructions ?Recorded ?Confirmed ?Type amlodipine 10 mg tablet 10 mg PO DAILY 30 days #30 tabs 07/26/24 02/05/25 Rx atorvastatin 40 mg tablet 40 mg PO HS 30 days #30 tabs 07/26/24 02/05/25 Rx bumetanide 0.5 mg tablet 0.5 mg PO DAILY #30 tabs 07/26/24 02/05/25 Rx fluticasone fur. 100 mcg-umeclid 1 inh inhalation DAILY #60 ea 07/26/24 02/05/25 Rx 62.5 mcg-vilant 25 mcg inhalat.powder (Trelegy Ellipta) lisinopril 20 mg tablet 20 mg PO DAILY 30 days #30 tabs 07/26/24 02/05/25 Rx apixaban 5 mg tablet (Eliquis) 5 mg PO BID 02/05/25 02/05/25 History New Prescriptions to Start Prescriptions: Allergies Allergy/AdvReac Type Severity Reaction Status Date / Time No Known Allergies Allergy Verified 01/10/25 09:53 Exam Data for Last 24 hours Vital signs and Labs for Last 24 Hours: Temp Pulse Resp BP Pulse Ox O2 Del Method O2 Flow Rate 101.1 F H 125 H 22 129/93 H 95 Nasal Cannula 2 02/05/25 14:08 02/05/25 14:08 02/05/25 14:30 02/05/25 14:30 02/05/25 14:08 02/05/25 14:08 02/05/25 14:08 Laboratory Results - last 24 hr 02/05/25 13:50: SARS-CoV-2 (PCR) Not detected, Influenza A Untype (PCR) Not detected, Influenza Type B (PCR) Not detected 02/05/25 13:52: WBC 11.5 H, RBC 3.76 L, Hgb 9.0 L, Hct 29.8 L, MCV 79.3 L, MCH 23.9 L, MCHC 30.2 L, RDW 17.9 H, Plt Count 283, MPV 9.3, Neut % (Auto) 68.3, Lymph % (Auto) 22.7, [place] % (Auto) 8.1, Eos % (Auto) 0.1, Baso % (Auto) 0.4, Neut # (Auto) 7.9 H, Lymph # (Auto) 2.6, [place] # (Auto) 0.9, Eos # (Auto) 0.0, Baso # (Auto) 0.1, PT 11.8, INR 1.07, APTT 30.0, VBG pH 7.42 H, VBG pCO2 35.2, VBG pO2 53.3 H, VBG HCO3 22.5 L, VBG Total CO2 23.6, VBG O2 Saturation 86.4 H, VBG Base Excess -1.9, VBG Lactic Acid 1.9, Sodium 136, Potassium 4.4, Chloride 101, Carbon Dioxide 25, Anion Gap 14.4, BUN 24 H, Creatinine 1.40 H, Estimated Creat Clear 69, Estimated GFR 50 L, Est GFR ( Amer) 61, Glucose 97, Calcium 8.8, Total Bilirubin 0.7, AST 58, ALT 40, Alkaline Phosphatase 70, Troponin I 0.02, NT-Pro-B Natriuret Pep 341 H, Total Protein 6.9 D, Albumin 4.0, Globulin 2.9, Albumin/Globulin Ratio 1.4, Lipase 59 I & O for Last 24 hours: Intake & Output 02/02/25 02/03/25 02/04/25 02/05/25 23:59 23:59 23:59 23:59 Weight 99.79 kg Constitutional Constitutional: mild distress, obese, chronically ill appearing and cooperative *Routine HEENT Exam Head: Present normocephalic Eye: Present EOMI ENT: Present mucous membranes moist *Routine Neck Exam Neck: Present supple and full ROM *Routine Respiratory Exam Respiratory: Present accessory muscle use, prolonged expiratory phase, rhonchi and wheezes; Absent crackles *Routine Cardiovascular Exam Cardiovascular: Present tachycardia *Routine Abdominal Exam Abdominal: Present soft and normoactive bowel sounds; Absent tenderness *Routine Rectal Exam Rectal:: deferred *Routine Genitalia Exam Genitalia:: deferred *Routine Extremities Exam Extremities: Present edema (1+ to knees), full ROM and normal capillary refill *Routine Skin Exam Skin: Present intact and dry *Routine Neurological Exam Neurological: Present alert, oriented X3 and moving all extremities; Absent altered mental status Assessment and Plan *Assessment and plan (1) Sepsis due to pneumonia: Status: Acute Category: Medical Code(s): J18.9 - Pneumonia, unspecified organism; A41.9 - Sepsis, unspecified organism (2) Acute exacerbation of chronic obstructive pulmonary disease: Status: Acute Category: Medical Code(s): J44.1 - Chronic obstructive pulmonary disease with (acute) exacerbation (3) Symptomatic anemia: Problem Comment: Iron deficiency anemia Status: Acute Category: Medical Code(s): D64.9 - Anemia, unspecified (4) Pulmonary emboli: Status: Acute Category: Medical Code(s): I26.99 - Other pulmonary embolism without acute cor pulmonale (5) Hyperlipidemia: Status: Chronic Qualifiers: Hyperlipidemia type: unspecified Qualified Code(s): E78.5 - Hyperlipidemia, unspecified Category: Medical Code(s): E78.5 - Hyperlipidemia, unspecified (6) Hypertension: Status: Chronic Qualifiers: Hypertension type: unspecified Qualified Code(s): I10 - Essential (primary) hypertension Category: Medical Code(s): I10 - Essential (primary) hypertension (7) Obesity (BMI 30.0-34.9): Status: Chronic Category: Medical Code(s): E66.811 - Obesity, class 1 Plan 69-year-old male with history of COPD who presents with tachycardia, tachypnea, multifocal pneumonia on chest imaging. Meet sepsis criteria. Discussed case with ER physician, request admission for further management of sepsis and pneumonia including antibiotics and treatment of his respiratory distress and new oxygen requirement. I decided to admit for further care. Patient currently on 2 L oxygen. Received empiric antibiotics in the ED. Blood cultures obtained. Necessitating inpatient care. Problems addressed as follows: Sepsis Multifocal pneumonia - Per my review of chest CT has patchy diffuse airspace disease consistent with multifocal pneumonia. Also has hilar lymphadenopathy. This could be inflammatory versus reactive versus neoplastic. Would benefit from serial imaging. - Pulmonology consulted to assist with care. They will see patient in the morning - Goal sats greater 90%, continue 2 L nasal cannula oxygen - DuoNebs scheduled every 6 hours - Received azithromycin and ceftriaxone in the ED. Will continue daily. - Resume home Trelegy inhaler - Negative for COVID and flu. Comprehensive panel obtained, pending Hypertension: Blood pressure normal at this time, in the setting of sepsis we will hold amlodipine, Lipitor, lisinopril. Reevaluate in the morning Anemia: - MCV low at 79. - Ordered TIBC, ferritin, iron level. Iron level low at 30, iron saturation of 9%, TIBC of 332. Ferritin still pending. - administer 200 mg Venofer IV in the morning. On chronic anticoagulation for previous PEs. Continue Eliquis 5 mg twice daily. Had left upper lobe PE in July, provoked by COVID. Patient has not smoked in over a year. Obesity complicates all aspects of his care Full code Eliquis Regular diet
--- NOTE | 2025-02-05 15:40 | PC.NURSE ---
Called ROSA Kurtz for report.
--- NOTE | 2025-02-05 15:51 | PC.NURSE ---
arrived by w/c from ED
--- NOTE | 2025-02-05 16:31 | PC.NURSE ---
MED REC COMPLETED USING EXTERNAL MED LIST. PATIENT STATES HE IS NOT 100% THE NAMES OF THE MEDICATIONS BUT HE KNOWS WHAT THEY ARE FOR AND STATED THE EXTERNAL HISTORY SHOULD BE ACCURATE.
[2025-02-05 17:47] LABS: Troponin I 0.02 ng/ml (0.00-0.034)
[2025-02-05] MEDS: AZITHROMYCIN 500 MG in 0.9 % SODIUM CHLORIDE 250 ML 250 MG IV (17:51)
[2025-02-05 18:00] LABS: Iron 30 ug/dL (49-181)
[2025-02-05 18:06] LABS: Adenovirus,PCR Not Detected (NotDetected); Chlamydophila Pneumoniae, PCR Not Detected (NotDetected); Coronavirus 19, PCR Not Detected (NotDetected); Coronovirus HKU1,PCR Not Detected (NotDetected); Influenza A, PCR Not Detected (NotDetected); Influenza AH1, 2009 Not Detected (NotDetected); Influenza AH1, PCR Not Detected (NotDetected); Influenza AH3,PCR Not Detected (NotDetected); Influenza B, PCR Not Detected (NotDetected); Mycoplasma Pneumoniae, PCR Not Detected (NotDetected); Parainfluenza 1, PCR Not Detected (NotDetected); Parainfluenza 2, PCR Not Detected (NotDetected); Parainfluenza 3, PCR Not Detected (NotDetected); Parainfluenza 4, PCR Not Detected (NotDetected)
[2025-02-05 18:30] LABS: Total Iron Binding Capacity 332 ug/dL (261-462)
[2025-02-05 18:57] LABS: Ferritin 13.2 ng/ml (17.9-464)
[2025-02-05 20:29] LABS: Troponin I 0.02 ng/ml (0.00-0.034)
[2025-02-05] MEDS: APIXABAN 5MG TABLET 5 MG PO (20:33)
[2025-02-06] VITALS (8 sets, daily range): BP systolic 124–153; BP diastolic 79–96; PULSE 70–99; RESP 16–17; TEMP 36.3–36.4; O2SAT 96–100; BMI 28.5
[2025-02-06] MEDS: IPRATROPIUM/ALBUTEROL 3 ML NEB IH ×3 (00:22→11:34)
--- NOTE | 2025-02-06 05:15 | PC.NURSE ---
v/s, ox4, 2LNC satting in 90's. No acute events to report. Plan of care ongoing.
[2025-02-06 06:17] LABS: Hematocrit 29.2 % (42.0-52.0); Hemoglobin 8.5 g/dL (14.1-18.0); Immature Granulocytes % 0.5 %; Mean Corpuscular HGB Conc 29.1 g/dL (31.8-35.4); Mean Corpuscular Hemoglobin 23.0 pg (27.0-31.2); Mean Corpuscular Volume 79.1 fl (80-94); Nucleated Red Blood Cells % 0 %; Platelet Count 293 K/mm3 (142-424); Red Blood Count 3.69 M/mm3 (4.60-6.20); Red Cell Distribution Width-SD 51.7 fL; White Blood Count 13.9 K/mm3 (4.8-10.8)
[2025-02-06 06:28] LABS: Alanine Aminotransferase 37 U/L (12-78); Albumin Level 3.8 g/dl (3.5-5.0); Albumin/Globulin Ratio 1.3 (1.1-1.8); Alkaline Phosphatase 64 U/L (38-126); Anion Gap 14.5 mEq/L (5-15); Aspartate Amino Transferase 48 U/L (17-59); Bilirubin,Total 0.4 mg/dl (0.2-1.3); Blood Urea Nitrogen 25 mg/dl (9-20); Calcium 9.2 mg/dl (8.4-10.2); Carbon Dioxide 23 mmol/L (22.0-30.0); Chloride 103 mmol/L (98-107); Creatinine Clearance Estimated 82 mL/min (50-200); Creatinine,Serum 1.10 mg/dl (0.66-1.25); Estimated Glomerular Filt Rate 66 ml/min (>60); GFR (African American) 80 ML/MIN (>60); Globulin 2.9 g/dL (1.3-3.2); Glucose 136 mg/dl (74-100); Magnesium 2.2 mg/dl (1.6-2.3); Potassium 4.5 mmoL/L (3.5-5.1); Sodium 136 mmol/L (136-145); Total Protein,Serum 6.7 g/dl (6.3-8.2)
--- NOTE | 2025-02-06 07:44 | HMH.PHAINT1 ---
Pharmacy Intervention Comments: HOME MEDICATION LIST VERIFIED USING LIST FROM OUTPATIENT PHARMACY AND PT INTERVIEW
[2025-02-06] MEDS: APIXABAN 5MG TABLET 5 MG PO (08:51)
[2025-02-06] MEDS: IRON SUCROSE COMPLEX 200 MG in 0.9 % SODIUM CHLORIDE 100 ML 220 MG IV (08:51)
[2025-02-06] MEDS: BUMETANIDE 1 MG TABLET PO (08:51)
--- NOTE | 2025-02-06 09:18 | EXP.PULM.CON ---
History of Present Illness History of present illness: Mr. Watts is a 77-year-old male greater than [id number] smoking, last smoked as per the patient in 2023 currently is on Trelegy inhaler along with albuterol on as-needed basis, not on any oxygen supplementation COPD history of PE on Eliquis presented to the ER with worsening respiratory distress and pulmonary was called for further evaluation and management. [facility] Disclaimer: The information contained in this section may have been updated after the patient was seen, as this information can be updated by other users. Medical History HTN (hypertension) Pneumonia due to COVID-19 virus Osteoarthritis COPD (chronic obstructive pulmonary disease) Surgical History History of cataract surgery Family History Other Colon cancer Lung cancer Social History Smoking Status: Never smoker alcohol intake: never substance use type: denies use current occupational status: other Travel in the last 8 weeks?: None Have you lived/traveled outside [place] in past 30 days?: No Contact w/someone who lives/traveled outside [place] past 30 days?: No Exposure to someone with infectious disease in past 14 days?: No Do you have a fever (greater than 100.4 F or 38 C)?: No Have you tested positive for COVID-19?: No Exposed to someone with COVID-19 in past 14 days?: No Do you have a sore throat?: No Do you have a cough?: No Do you have any weakness?: No Do you have any diarrhea?: No Are you experiencing any unusual bleeding?: No Do you have any muscle aches/pain?: No Do you have any abdominal pain?: No Are you experiencing loss of taste or smell?: No Review of Systems Constitutional Constitutional: Reports anorexia, Reports body ache(s) and Reports fatigue Eyes Eyes: Denies eye discharge, Denies dry eyes, Denies irritation and Denies itchy eyes ENT Ears, Nose, Mouth, and Throat: Denies epistaxis, Denies facial pain, Denies lip swelling and Denies throat swelling *Cardiovascular Cardiovascular: Reports dyspnea and Reports dyspnea on exertion *Respiratory Respiratory: Denies change in phlegm color, Reports chest congestion, Reports cough, Reports dyspnea, Reports dyspnea on exertion, Reports excessive phlegm production, Denies hemoptysis, Denies pain on inspiration, Denies pain with cough and Reports wheezing *Gastrointestinal Gastrointestinal: Denies abdominal pain, Denies belching and Denies cramping *Musculoskeletal Musculoskeletal: Reports back pain, Reports myalgias and Reports other (No small joint swelling or Pain) Psychiatric Psychiatric: Denies homicidal ideation and Denies suicidal ideation Endocrine Endocrine: Reports fatigue and Denies heat intolerance Hematologic/Lymphatic Hematologic/Lymphatic: Denies easy bleeding and Denies lymphadenopathy Allergic/Immunologic Allergic/Immunologic: Denies itchy eyes, Denies lip swelling, Denies throat swelling and Reports wheezing Pulmonology Exam Inpatient Vital signs and Labs for Last 24 Hours: Temp Pulse Resp BP Pulse Ox O2 Del Method O2 Flow Rate 97.5 F L 90 16 153/96 H 96 Nasal Cannula 2 02/06/25 04:00 02/06/25 06:40 02/06/25 04:00 02/06/25 04:00 02/06/25 06:40 02/06/25 06:40 02/06/25 06:40 FiO2 28 02/06/25 00:38 Laboratory Results - last 24 hr 02/05/25 13:50: SARS-CoV-2 (PCR) Not detected, Influenza A Untype (PCR) Not detected, Influenza Type B (PCR) Not detected 02/05/25 13:52: WBC 11.5 H, RBC 3.76 L, Hgb 9.0 L, Hct 29.8 L, MCV 79.3 L, MCH 23.9 L, MCHC 30.2 L, RDW 17.9 H, Plt Count 283, MPV 9.3, Neut % (Auto) 68.3, Lymph % (Auto) 22.7, [place] % (Auto) 8.1, Eos % (Auto) 0.1, Baso % (Auto) 0.4, Neut # (Auto) 7.9 H, Lymph # (Auto) 2.6, [place] # (Auto) 0.9, Eos # (Auto) 0.0, Baso # (Auto) 0.1, PT 11.8, INR 1.07, APTT 30.0, VBG pH 7.42 H, VBG pCO2 35.2, VBG pO2 53.3 H, VBG HCO3 22.5 L, VBG Total CO2 23.6, VBG O2 Saturation 86.4 H, VBG Base Excess -1.9, VBG Lactic Acid 1.9, Sodium 136, Potassium 4.4, Chloride 101, Carbon Dioxide 25, Anion Gap 14.4, BUN 24 H, Creatinine 1.40 H, Estimated Creat Clear 69, Estimated GFR 50 L, Est GFR ( Amer) 61, Glucose 97, Calcium 8.8, Iron 30 L, TIBC 332, Iron Saturation 9.98889 L, Ferritin 13.2 L, Total Bilirubin 0.7, AST 58, ALT 40, Alkaline Phosphatase 70, Troponin I 0.02, NT-Pro-B Natriuret Pep 341 H, Total Protein 6.9 D, Albumin 4.0, Globulin 2.9, Albumin/Globulin Ratio 1.4, Lipase 59 02/05/25 17:10: Troponin I 0.02 02/05/25 18:00: Chlamy pneumoniae PCR Not detected, Adenovirus (PCR) Not detected, B. pertussis DNA (PCR) Not detected, Coronavirus OC43 (PCR) Not detected, Coronavirus HKU1 (PCR) Not detected, Coronavirus 229E (PCR) Not detected, SARS-CoV-2 (PCR) Not detected, Coronavirus NL63 (PCR) Not detected, Human Metapneumovir PCR Not detected, Influenza A (H1) PCR Not detected, Influ A (H1N1/09) PCR Not detected, Influenza A (H3) PCR Not detected, Influenza Type A (PCR) Not detected, Influenza Type B (PCR) Not detected, M. pneumoniae (PCR) Not detected, Parainfluenza 1 (PCR) Not detected, Parainfluenza 2 (PCR) Not detected, Parainfluenza 3 (PCR) Not detected, Parainfluenza 4 (PCR) Not detected, RSV (PCR) Not detected, Entero/Rhino (PCR) Not detected 02/05/25 18:59: Troponin I 0.02 02/06/25 05:31: WBC 13.9 H, RBC 3.69 L, Hgb 8.5 L, Hct 29.2 L, MCV 79.1 L, MCH 23.0 L, MCHC 29.1 L, RDW 17.9 H, Plt Count 293, MPV 9.1, Neut % (Auto) 90.5 H, Lymph % (Auto) 6.3 L, [place] % (Auto) 2.6, Eos % (Auto) 0.0 L, Baso % (Auto) 0.1, Neut # (Auto) 12.6 H, Lymph # (Auto) 0.9, [place] # (Auto) 0.4, Eos # (Auto) 0.0, Baso # (Auto) 0.0, Sodium 136, Potassium 4.5, Chloride 103, Carbon Dioxide 23, Anion Gap 14.5, BUN 25 H, Creatinine 1.10 D, Estimated Creat Clear 82, Estimated GFR 66, Est GFR ( Amer) 80 D, Glucose 136 H D, Calcium 9.2, Magnesium 2.2, Total Bilirubin 0.4, AST 48, ALT 37, Alkaline Phosphatase 64, Total Protein 6.7, Albumin 3.8, Globulin 2.9, Albumin/Globulin Ratio 1.3 I & O for Labs for Last 24 Hours: Intake & Output 02/03/25 02/04/25 02/05/25 02/06/25 23:59 23:59 23:59 23:59 Intake Total 270 / 270 Output Total 0 / 0 0 / 0 Balance 270 / 270 0 / 0 Weight 205 lb 4.8 oz 204 lb 4 oz Constitutional: Present moderate distress Head: Present normocephalic and atraumatic ENT: Present normal exam, normal oropharynx and mucous membranes moist Neck: Present normal inspection and full ROM Respiratory: Present prolonged expiratory phase, respiratory distress and able to speak in complete sentences; Absent wheezes Cardiac: Present S1/S2, Tachycardia and radial pulses present GI: Present soft and distention; Absent tenderness or guarding Skin: Present intact; Absent cyanosis or jaundice Neuro: Present alert, awake and oriented x 3 Extremities: Present normal inspection; Absent clubbing or cyanosis Psychiatric: Present normal affect and cooperative Meds Home Medications and Allergies Home Medications ?Medication ?Instructions ?Recorded ?Confirmed ?Type amlodipine 10 mg tablet 10 mg PO DAILY 30 days #30 tabs 07/26/24 02/05/25 Rx atorvastatin 40 mg tablet 40 mg PO HS 30 days #30 tabs 07/26/24 02/05/25 Rx bumetanide 0.5 mg tablet 0.5 mg PO DAILY #30 tabs 07/26/24 02/05/25 Rx fluticasone fur. 100 mcg-umeclid 1 inh inhalation DAILY #60 ea 07/26/24 02/05/25 Rx 62.5 mcg-vilant 25 mcg inhalat.powder (Trelegy Ellipta) lisinopril 20 mg tablet 20 mg PO DAILY 30 days #30 tabs 07/26/24 02/05/25 Rx apixaban 5 mg tablet (Eliquis) 5 mg PO BID 02/05/25 02/05/25 History ketorolac 0.5 % eye drops 1 drp ophthalmic (eye) BID 02/06/25 02/06/25 History ketotifen fumarate 0.025 % (0.035 1 drp ophthalmic (eye) BID 02/06/25 02/06/25 History %) eye drops ofloxacin 0.3 % eye drops 1 drp ophthalmic (eye) QID 02/06/25 02/06/25 History pantoprazole 40 mg tablet,delayed 40 mg PO BID 02/06/25 02/06/25 History release prednisolone acetate 1 % eye 1 drp ophthalmic (eye) BID 02/06/25 02/06/25 History drops,suspension New Prescriptions to Start Prescriptions: Allergies Allergy/AdvReac Type Severity Reaction Status Date / Time No Known Allergies Allergy Verified 01/10/25 09:53 Results Laboratory Findings 02/06/25 05:31 02/06/25 05:31 PT/INR, D-dimer PT 11.8 seconds (10.1-12.5) 02/05/25 13:52 INR 1.07 (0.9-1.1) 02/05/25 13:52 Abnormal lab findings: Abnormal Labs 02/05/25 02/06/25 13:52 05:31 WBC 11.5 H 13.9 H RBC 3.76 L 3.69 L Hgb 9.0 L 8.5 L Hct 29.8 L 29.2 L MCV 79.3 L 79.1 L MCH 23.9 L 23.0 L MCHC 30.2 L 29.1 L RDW 17.9 H 17.9 H Neut % (Auto) 90.5 H Lymph % (Auto) 6.3 L Eos % (Auto) 0.0 L Neut # (Auto) 7.9 H 12.6 H VBG pH 7.42 H VBG pO2 53.3 H VBG HCO3 22.5 L VBG O2 Saturation 86.4 H BUN 24 H 25 H Creatinine 1.40 H Estimated GFR 50 L Glucose 136 H D Iron 30 L Iron Saturation 9.73439 L Ferritin 13.2 L NT-Pro-B Natriuret Pep 341 H Assessment and Plan *Assessment and plan (1) Acute exacerbation of chronic obstructive pulmonary disease: Status: Acute Category: Medical Code(s): J44.1 - Chronic obstructive pulmonary disease with (acute) exacerbation (2) PNA (pneumonia): Status: Acute Category: Medical Code(s): J18.9 - Pneumonia, unspecified organism Plan Mr. Watts is a 77-year-old male greater than [id number] smoking, last smoked as per the patient in 2023 currently is on Trelegy inhaler along with albuterol on as-needed basis, not on any oxygen supplementation COPD history of PE on Eliquis presented to the ER with worsening respiratory distress and pulmonary was called for further evaluation and management. CTA upon admission no evidence of pulmonary embolism. Diffuse emphysematous changes noted. Bilateral patchy groundglass airspace disease prominent lower lobe with no obvious dense consolidative changes noted. Mediastinal hilar lymphadenopathy, 4R, 4L,7, 10L and 10R similar to prior. Afebrile. Hemodynamically stable. Neutrophilic predominant leukocytosis. Comprehensive respiratory viral PCR panel negative. Echo July 2024: Normal LVEF. Impaired LV relaxation. RVSP elevated at 50-55. Echo also showed Bright sign, CTA on that admission also showed pulmonary emboli with RV starin. Currently receiving nebulization therapies along with ceftriaxone and azithromycin. Examination moderate respiratory distress. No significant wheezing noted. Plan: Continue Trelegy 100 inhaler along with DuoNebs 4 times daily as needed Continue ceftriaxone azithromycin, antibiotics can be weaned to cefdinir to complete a total of 5-day course Prednisone 40 mg daily x 5 days # Patient was initiated anticoagulation in July 2024 for likely provoked PE from COVID-19 pneumonia. He appears to be taking his anticoagulation at this point of time, will follow as an outpatient basis and will determine the possibility of discontinuing his anticoagulation therapy. CT PE from this admission did not show any evidence of pulmonary embolism.
--- NOTE | 2025-02-06 09:59 | EXP.ACUTE.PN ---
Subjective *Date: 02/06/25 *Time: 12:00 Interval history: Patient sitting up in bed, no acute distress noted. States that he does feel better today. Still having some shortness of breath, wearing 2 L nasal cannula. Medical Exam Vital signs and Labs for Last 24 Hours: Vital Signs Temp Pulse Pulse Resp BP BP Pulse Ox 02/06/25 08:00 97.5 F L 99 H 16 144/86 H 99 02/06/25 06:40 90 02/06/25 06:40 94 H 02/06/25 06:40 96 02/06/25 06:29 02/06/25 05:00 02/06/25 04:00 97.5 F L 70 16 153/96 H 100 02/06/25 02:33 02/06/25 01:00 02/06/25 00:38 02/06/25 00:38 78 02/06/25 00:00 97.4 F L 76 17 124/79 98 02/05/25 23:00 02/05/25 21:00 02/05/25 20:00 02/05/25 20:00 97.5 F L 91 H 16 123/68 98 02/05/25 19:00 02/05/25 17:00 02/05/25 15:55 98.5 F 103 H 20 135/87 97 02/05/25 15:44 97.5 F L 110 H 19 124/79 02/05/25 15:35 94 L 02/05/25 15:30 106 H 16 124/79 95 02/05/25 14:30 22 129/93 H 02/05/25 14:08 101.1 F H 125 H 20 144/82 H 95 02/05/25 14:01 124 H 18 129/50 L 95 02/05/25 13:55 101.1 F H 125 H 20 144/82 H 95 O2 Del Method O2 Flow Rate FiO2 02/06/25 08:00 Nasal Cannula 2 02/06/25 06:40 02/06/25 06:40 02/06/25 06:40 Nasal Cannula 2 02/06/25 06:29 Nasal Cannula 2 02/06/25 05:00 Nasal Cannula 2 02/06/25 04:00 Nasal Cannula 2 02/06/25 02:33 Nasal Cannula 2 02/06/25 01:00 Nasal Cannula 2 02/06/25 00:38 Nasal Cannula 2 28 02/06/25 00:38 02/06/25 00:00 Room Air 02/05/25 23:00 Nasal Cannula 2 02/05/25 21:00 Nasal Cannula 2 02/05/25 20:00 Nasal Cannula 2 02/05/25 20:00 Nasal Cannula 2 02/05/25 19:00 Nasal Cannula 2 02/05/25 17:00 Nasal Cannula 2 02/05/25 15:55 Nasal Cannula 2 02/05/25 15:44 Nasal Cannula 2 02/05/25 15:35 Nasal Cannula 2 02/05/25 15:30 02/05/25 14:30 02/05/25 14:08 Nasal Cannula 2 02/05/25 14:01 02/05/25 13:55 Nasal Cannula 5 Intake and Output 02/05/25 02/06/25 02/06/25 23:59 07:59 15:59 Intake Total 270 / 270 480 / 480 Output Total 0 / 0 0 / 0 Balance 270 / 270 0 / 480 480 / 480 Intake: Intake, Oral Amount 270 / 270 480 / 480 Output: Output, Urine Amount 0 / 0 0 / 0 Other: Number of Unmeasured Voids 1 1 Weight 92.646 kg Patient Weight 02/06/25 23:59 Weight 92.646 kg Laboratory Results - last 24 hr 02/05/25 13:50: SARS-CoV-2 (PCR) Not detected, Influenza A Untype (PCR) Not detected, Influenza Type B (PCR) Not detected 02/05/25 13:52: WBC 11.5 H, RBC 3.76 L, Hgb 9.0 L, Hct 29.8 L, MCV 79.3 L, MCH 23.9 L, MCHC 30.2 L, RDW 17.9 H, Plt Count 283, MPV 9.3, Neut % (Auto) 68.3, Lymph % (Auto) 22.7, [place] % (Auto) 8.1, Eos % (Auto) 0.1, Baso % (Auto) 0.4, Neut # (Auto) 7.9 H, Lymph # (Auto) 2.6, [place] # (Auto) 0.9, Eos # (Auto) 0.0, Baso # (Auto) 0.1, PT 11.8, INR 1.07, APTT 30.0, VBG pH 7.42 H, VBG pCO2 35.2, VBG pO2 53.3 H, VBG HCO3 22.5 L, VBG Total CO2 23.6, VBG O2 Saturation 86.4 H, VBG Base Excess -1.9, VBG Lactic Acid 1.9, Sodium 136, Potassium 4.4, Chloride 101, Carbon Dioxide 25, Anion Gap 14.4, BUN 24 H, Creatinine 1.40 H, Estimated Creat Clear 69, Estimated GFR 50 L, Est GFR ( Amer) 61, Glucose 97, Calcium 8.8, Iron 30 L, TIBC 332, Iron Saturation 9.15845 L, Ferritin 13.2 L, Total Bilirubin 0.7, AST 58, ALT 40, Alkaline Phosphatase 70, Troponin I 0.02, NT-Pro-B Natriuret Pep 341 H, Total Protein 6.9 D, Albumin 4.0, Globulin 2.9, Albumin/Globulin Ratio 1.4, Lipase 59 02/05/25 17:10: Troponin I 0.02 02/05/25 18:00: Chlamy pneumoniae PCR Not detected, Adenovirus (PCR) Not detected, B. pertussis DNA (PCR) Not detected, Coronavirus OC43 (PCR) Not detected, Coronavirus HKU1 (PCR) Not detected, Coronavirus 229E (PCR) Not detected, SARS-CoV-2 (PCR) Not detected, Coronavirus NL63 (PCR) Not detected, Human Metapneumovir PCR Not detected, Influenza A (H1) PCR Not detected, Influ A (H1N1/09) PCR Not detected, Influenza A (H3) PCR Not detected, Influenza Type A (PCR) Not detected, Influenza Type B (PCR) Not detected, M. pneumoniae (PCR) Not detected, Parainfluenza 1 (PCR) Not detected, Parainfluenza 2 (PCR) Not detected, Parainfluenza 3 (PCR) Not detected, Parainfluenza 4 (PCR) Not detected, RSV (PCR) Not detected, Entero/Rhino (PCR) Not detected 02/05/25 18:59: Troponin I 0.02 02/06/25 05:31: WBC 13.9 H, RBC 3.69 L, Hgb 8.5 L, Hct 29.2 L, MCV 79.1 L, MCH 23.0 L, MCHC 29.1 L, RDW 17.9 H, Plt Count 293, MPV 9.1, Neut % (Auto) 90.5 H, Lymph % (Auto) 6.3 L, [place] % (Auto) 2.6, Eos % (Auto) 0.0 L, Baso % (Auto) 0.1, Neut # (Auto) 12.6 H, Lymph # (Auto) 0.9, [place] # (Auto) 0.4, Eos # (Auto) 0.0, Baso # (Auto) 0.0, Sodium 136, Potassium 4.5, Chloride 103, Carbon Dioxide 23, Anion Gap 14.5, BUN 25 H, Creatinine 1.10 D, Estimated Creat Clear 82, Estimated GFR 66, Est GFR ( Amer) 80 D, Glucose 136 H D, Calcium 9.2, Magnesium 2.2, Total Bilirubin 0.4, AST 48, ALT 37, Alkaline Phosphatase 64, Total Protein 6.7, Albumin 3.8, Globulin 2.9, Albumin/Globulin Ratio 1.3 I & O for Labs for Last 24 Hours: Intake & Output 02/03/25 02/04/25 02/05/25 02/06/25 23:59 23:59 23:59 23:59 Intake Total 270 / 270 480 / 480 Output Total 0 / 0 0 / 0 Balance 270 / 270 480 / 480 Weight 93.123 kg 92.646 kg Constitutional: Present no acute distress and cooperative Head: Present atraumatic Eyes: Present as per HPI ENT: Present normal exam Neck: Present normal inspection and full ROM; Absent tenderness Respiratory: Present decreased breath sounds, crackles (Bilateral bases), able to speak in complete sentences and symmetric chest movement Cardiac: Present Regular Rhythm and Tachycardia GI: Present soft and normal bowel sounds; Absent distention or tenderness Rectal (male): Present deferred (male): Present deferred Extremities: Present normal inspection and normal capillary refill; Absent tenderness or edema Skin: Present intact and dry Neuro: Present alert, awake and oriented x 3 Assessment and Plan *Assessment and plan (1) Acute exacerbation of chronic obstructive pulmonary disease: Status: Acute Category: Medical Code(s): J44.1 - Chronic obstructive pulmonary disease with (acute) exacerbation (2) Sepsis due to pneumonia: Status: Acute Category: Medical Code(s): J18.9 - Pneumonia, unspecified organism; A41.9 - Sepsis, unspecified organism (3) Symptomatic anemia: Problem Comment: Iron deficiency anemia Status: Acute Category: Medical Code(s): D64.9 - Anemia, unspecified (4) Iron deficiency anemia: Status: Acute Category: Medical Code(s): D50.9 - Iron deficiency anemia, unspecified (5) Hypertension: Status: Chronic Qualifiers: Hypertension type: unspecified Qualified Code(s): I10 - Essential (primary) hypertension Category: Medical Code(s): I10 - Essential (primary) hypertension (6) Pulmonary emboli: Status: Acute Category: Medical Code(s): I26.99 - Other pulmonary embolism without acute cor pulmonale (7) Obesity (BMI 30.0-34.9): Status: Chronic Category: Medical Code(s): E66.811 - Obesity, class 1 Plan Mr. Watts is a 69-year-old male who presented to the emergency department yesterday with complaints of worsening shortness of breath over the last 1 to 2 days. He was found to be tachypneic, tachycardic, and had a new requirement of 2 L O2 nasal cannula. Imaging showed multifocal pneumonia, emphysema. Patient does have a history of PEs, no PE shown on chest CTA. Patient was admitted to the hospital for further management of sepsis, pneumonia, respiratory distress. Plan of care as follows: #Sepsis due to pneumonia #Acute exacerbation of COPD ? Patient chest CT shows multifocal pneumonia, also some hilar lymphadenopathy. Etiology inflammatory versus neoplastic. Pulmonology consulted. ? Patient currently on 2 L NC, wean to sats greater than 90%. ? DuoNebs every 6 hours. Patient uses Trelegy inhaler at home, will resume. ? Patient receiving azithromycin and ceftriaxone IV daily. ? Respiratory panel negative for any viral infections. ? Monitor CBC, CMP daily. #Symptomatic anemia #Iron deficiency anemia ? Patient found to be anemic, hemoglobin 8.5, hematocrit 29.2. Iron studies show Iron 30, iron saturation 9.03, ferritin 13.2. ? Patient iron deficient anemia, Venofer infusion IV today. ? Patient anemia could be related to chronic blood thinner use, patient also is on a PPI 40 mg twice daily. Will hold PPI. #Hypertension #Hyperlipidemia ? Restart home medication amlodipine, lisinopril, Lipitor. #History of pulmonary embolism ? No evidence of PE on chest CTA. ? On chronic anticoagulation for previous PE, Eliquis 5 mg twice daily. Most recently had left upper lobe PE in July/2024. Will continue Eliquis at this time. #Obesity #History of tobacco use disorder ? Obesity complicates all aspects of care, BMI 28.6. ? Patient is a former smoker, states he has not smoked in approximately 1 year. Full code VTE?Eliquis 5 mg twice daily Regular diet Ambulate as tolerated
[2025-02-06] MEDS: LISINOPRIL 20MG TABLET 20 MG PO (10:59)
[2025-02-06] MEDS: AMLODIPINE 10MG TABLET 10 MG PO (10:59)
--- NOTE | 2025-02-06 11:33 | PC.NURSE ---
dr requested a room air sat. sat is reading 96%
--- NOTE | 2025-02-06 12:00 | P.DS_ITS ---
<Statement entered by Rashad Pierson MD - 02/06/25 17:41> Rounded on patient after nurse practitioner. Personally examined and interviewed patient. Agree with exam findings and care plan as documented. General Admission date:: 02/05/25 Discharge date: 02/06/25 HPI HPI HPI: 69-year-old male with COPD, former smoker, on Eliquis for PE after having COVID in July. Presented to the ER with worsening shortness of breath over the past 24 to 48 hours. Denies nausea, vomiting, diarrhea, syncope. No joss chest pain. Does have back pain from coughing. Initially was tachycardic, tac hypneic, hypoxic necessitating supplemental oxygen. Initiated on serial nebulizers. Concern for sepsis and pneumonia with multifocal pneumonia on chest CT. Given his respiratory distress, new oxygen requirement, and sepsis, medicine was consulted for admission. Received ceftriaxone and azithromycin in the ED prior to admission. On arrival to the floor, patient is stable on 2 L oxygen. Still appears in mild distress. Able to complete sentences and give history. Is quite tired and complaining of back pain. No known sick contacts. Denies productive cough. States he has not smoked in a year. Hospital Course Hospital Course Hospital Course: Mr. Watts is a 69-year-old male who presented to the emergency department yesterday with complaints of worsening shortness of breath over the last 1 to 2 days. He was found to be tachypneic, tachycardic, and had a new requirement of 2 L O2 nasal cannula. Imaging showed multifocal pneumonia, emphysema. Patient does have a history of PEs, no PE shown on chest CTA. Patient was admitted to the hospital for further management of sepsis, pneumonia, respiratory distress. Plan of care as follows: #Sepsis due to pneumonia #Acute exacerbation of COPD ? Patient chest CT shows multifocal pneumonia, also some hilar lymphadenopathy. Etiology inflammatory versus neoplastic. ? Pulmonology consulted. Recommendations start prednisone 40 mg daily x 5 days, transition to cefdinir oral antibiotics. Close outpatient follow-up. ? Patient currently on room air, O2 saturation 96%. ? Continue Trelegy inhaler daily at home. ? Leukocytosis noted, 13.9. Patient received azithromycin and ceftriaxone IV, will transition to cefdinir oral antibiotics at discharge. ? Respiratory panel negative for any viral infections. #Symptomatic anemia #Iron deficiency anemia ? Patient found to be anemic, hemoglobin 8.5, hematocrit 29.2. Iron studies show Iron 30, iron saturation 9.03, ferritin 13.2. ? Patient iron deficient anemia, Venofer infusion IV today. ? Patient anemia could be related to chronic blood thinner use, will follow-up with pulmonary outpatient for possible stopping of Eliquis. ? Patient prescribed oral iron supplement at discharge. #Hypertension #Hyperlipidemia ?Continue home medication amlodipine, lisinopril, Lipitor. #History of pulmonary embolism ? No evidence of PE on chest CTA. ? On chronic anticoagulation for previous PE, Eliquis 5 mg twice daily. Most recently had left upper lobe PE in July/2024. Will continue Eliquis at this time. #Obesity #History of tobacco use disorder ? Obesity complicates all aspects of care, BMI 28.6. ? Patient is a former smoker, states he has not smoked in approximately 1 year. Total time spent on discharge 37 minutes in counseling, documentation, chart review, and direct care with patient. Exam Data for Last 24 hours Vital signs and Labs for Last 24 Hours: Temp Pulse Resp BP Pulse Ox O2 Del Method O2 Flow Rate 97.5 F L 84 16 144/86 H 99 Room Air 2 02/06/25 08:00 02/06/25 11:34 02/06/25 08:00 02/06/25 08:00 02/06/25 08:35 02/06/25 11:10 02/06/25 09:20 FiO2 28 02/06/25 00:38 Laboratory Results - last 24 hr 02/05/25 13:50: SARS-CoV-2 (PCR) Not detected, Influenza A Untype (PCR) Not detected, Influenza Type B (PCR) Not detected 02/05/25 13:52: WBC 11.5 H, RBC 3.76 L, Hgb 9.0 L, Hct 29.8 L, MCV 79.3 L, MCH 23.9 L, MCHC 30.2 L, RDW 17.9 H, Plt Count 283, MPV 9.3, Neut % (Auto) 68.3, Lymph % (Auto) 22.7, [place] % (Auto) 8.1, Eos % (Auto) 0.1, Baso % (Auto) 0.4, Neut # (Auto) 7.9 H, Lymph # (Auto) 2.6, [place] # (Auto) 0.9, Eos # (Auto) 0.0, Baso # (Auto) 0.1, PT 11.8, INR 1.07, APTT 30.0, VBG pH 7.42 H, VBG pCO2 35.2, VBG pO2 53.3 H, VBG HCO3 22.5 L, VBG Total CO2 23.6, VBG O2 Saturation 86.4 H, VBG Base Excess -1.9, VBG Lactic Acid 1.9, Sodium 136, Potassium 4.4, Chloride 101, Carbon Dioxide 25, Anion Gap 14.4, BUN 24 H, Creatinine 1.40 H, Estimated Creat Clear 69, Estimated GFR 50 L, Est GFR ( Amer) 61, Glucose 97, Calcium 8.8, Iron 30 L, TIBC 332, Iron Saturation 9.21498 L, Ferritin 13.2 L, Total Bilirubin 0.7, AST 58, ALT 40, Alkaline Phosphatase 70, Troponin I 0.02, NT-Pro-B Natriuret Pep 341 H, Total Protein 6.9 D, Albumin 4.0, Globulin 2.9, Albumin/Globulin Ratio 1.4, Lipase 59 02/05/25 17:10: Troponin I 0.02 02/05/25 18:00: Chlamy pneumoniae PCR Not detected, Adenovirus (PCR) Not detected, B. pertussis DNA (PCR) Not detected, Coronavirus OC43 (PCR) Not detected, Coronavirus HKU1 (PCR) Not detected, Coronavirus 229E (PCR) Not detected, SARS-CoV-2 (PCR) Not detected, Coronavirus NL63 (PCR) Not detected, Human Metapneumovir PCR Not detected, Influenza A (H1) PCR Not detected, Influ A (H1N1/09) PCR Not detected, Influenza A (H3) PCR Not detected, Influenza Type A (PCR) Not detected, Influenza Type B (PCR) Not detected, M. pneumoniae (PCR) Not detected, Parainfluenza 1 (PCR) Not detected, Parainfluenza 2 (PCR) Not detected, Parainfluenza 3 (PCR) Not detected, Parainfluenza 4 (PCR) Not detected, RSV (PCR) Not detected, Entero/Rhino (PCR) Not detected 02/05/25 18:59: Troponin I 0.02 02/06/25 05:31: WBC 13.9 H, RBC 3.69 L, Hgb 8.5 L, Hct 29.2 L, MCV 79.1 L, MCH 23.0 L, MCHC 29.1 L, RDW 17.9 H, Plt Count 293, MPV 9.1, Neut % (Auto) 90.5 H, Lymph % (Auto) 6.3 L, [place] % (Auto) 2.6, Eos % (Auto) 0.0 L, Baso % (Auto) 0.1, Neut # (Auto) 12.6 H, Lymph # (Auto) 0.9, [place] # (Auto) 0.4, Eos # (Auto) 0.0, Baso # (Auto) 0.0, Sodium 136, Potassium 4.5, Chloride 103, Carbon Dioxide 23, Anion Gap 14.5, BUN 25 H, Creatinine 1.10 D, Estimated Creat Clear 82, Estimated GFR 66, Est GFR ( Amer) 80 D, Glucose 136 H D, Calcium 9.2, Magnesium 2.2, Total Bilirubin 0.4, AST 48, ALT 37, Alkaline Phosphatase 64, Total Protein 6.7, Albumin 3.8, Globulin 2.9, Albumin/Globulin Ratio 1.3 I & O for Last 24 hours: Intake & Output 02/03/25 02/04/25 02/05/25 02/06/25 23:59 23:59 23:59 23:59 Intake Total 270 / 270 580 / 580 Output Total 0 / 0 0 / 0 Balance 270 / 270 580 / 580 Weight 93.123 kg 92.646 kg Constitutional Constitutional: no acute distress, average body habitus, chronically ill appearing and cooperative *Routine HEENT Exam Head: Present normocephalic Eye: Present EOMI and PERRL ENT: Present mucous membranes moist *Routine Neck Exam Neck: Present supple; Absent lymphadenopathy *Routine Respiratory Exam Respiratory: Present prolonged expiratory phase and wheezes; Absent accessory muscle use, rhonchi or crackles *Routine Cardiovascular Exam Cardiovascular: Present RRR *Routine Abdominal Exam Abdominal: Present soft and normoactive bowel sounds; Absent tenderness *Routine Rectal Exam Patient deferred: visual exam *Routine Exam Patient deferred: penile exam *Routine Extremities Exam Extremities: Absent cyanosis, clubbing or edema *Routine Skin Exam Skin: Present warm; Absent rash *Routine Neurological Exam Neurological: Present alert, oriented X3 and moving all extremities; Absent altered mental status Results Data Completed and Pending Labs on day of discharge: Labs from last 24 hours 02/06/25 02/05/25 02/05/25 05:31 18:59 18:00 WBC 13.9 H RBC 3.69 L Hgb 8.5 L Hct 29.2 L MCV 79.1 L MCH 23.0 L MCHC 29.1 L RDW 17.9 H Plt Count 293 MPV 9.1 Neut % (Auto) 90.5 H Lymph % (Auto) 6.3 L [place] % (Auto) 2.6 Eos % (Auto) 0.0 L Baso % (Auto) 0.1 Neut # (Auto) 12.6 H Lymph # (Auto) 0.9 [place] # (Auto) 0.4 Eos # (Auto) 0.0 Baso # (Auto) 0.0 PT INR APTT VBG pH VBG pCO2 VBG pO2 VBG HCO3 VBG Total CO2 VBG O2 Saturation VBG Base Excess VBG Lactic Acid Sodium 136 Potassium 4.5 Chloride 103 Carbon Dioxide 23 Anion Gap 14.5 BUN 25 H Creatinine 1.10 D Estimated Creat Clear 82 Estimated GFR 66 Est GFR ( Amer) 80 D Glucose 136 H D Calcium 9.2 Magnesium 2.2 Iron TIBC Iron Saturation Ferritin Total Bilirubin 0.4 AST 48 ALT 37 Alkaline Phosphatase 64 Troponin I 0.02 NT-Pro-B Natriuret Pep Total Protein 6.7 Albumin 3.8 Globulin 2.9 Albumin/Globulin Ratio 1.3 Lipase Chlamy pneumoniae PCR Not detected Adenovirus (PCR) Not detected B. pertussis DNA (PCR) Not detected Coronavirus OC43 (PCR) Not detected Coronavirus HKU1 (PCR) Not detected Coronavirus 229E (PCR) Not detected SARS-CoV-2 (PCR) Not detected Coronavirus NL63 (PCR) Not detected Human Metapneumovir PCR Not detected Influenza A (H1) PCR Not detected Influ A (H1N1/09) PCR Not detected Influenza A (H3) PCR Not detected Influenza Type A (PCR) Not detected Influenza A Untype (PCR) Influenza Type B (PCR) Not detected M. pneumoniae (PCR) Not detected Parainfluenza 1 (PCR) Not detected Parainfluenza 2 (PCR) Not detected Parainfluenza 3 (PCR) Not detected Parainfluenza 4 (PCR) Not detected RSV (PCR) Not detected Entero/Rhino (PCR) Not detected 02/05/25 02/05/25 02/05/25 17:10 13:52 13:50 WBC 11.5 H RBC 3.76 L Hgb 9.0 L Hct 29.8 L MCV 79.3 L MCH 23.9 L MCHC 30.2 L RDW 17.9 H Plt Count 283 MPV 9.3 Neut % (Auto) 68.3 Lymph % (Auto) 22.7 [place] % (Auto) 8.1 Eos % (Auto) 0.1 Baso % (Auto) 0.4 Neut # (Auto) 7.9 H Lymph # (Auto) 2.6 [place] # (Auto) 0.9 Eos # (Auto) 0.0 Baso # (Auto) 0.1 PT 11.8 INR 1.07 APTT 30.0 VBG pH 7.42 H VBG pCO2 35.2 VBG pO2 53.3 H VBG HCO3 22.5 L VBG Total CO2 23.6 VBG O2 Saturation 86.4 H VBG Base Excess -1.9 VBG Lactic Acid 1.9 Sodium 136 Potassium 4.4 Chloride 101 Carbon Dioxide 25 Anion Gap 14.4 BUN 24 H Creatinine 1.40 H Estimated Creat Clear 69 Estimated GFR 50 L Est GFR ( Amer) 61 Glucose 97 Calcium 8.8 Magnesium Iron 30 L TIBC 332 Iron Saturation 9.62170 L Ferritin 13.2 L Total Bilirubin 0.7 AST 58 ALT 40 Alkaline Phosphatase 70 Troponin I 0.02 0.02 NT-Pro-B Natriuret Pep 341 H Total Protein 6.9 D Albumin 4.0 Globulin 2.9 Albumin/Globulin Ratio 1.4 Lipase 59 Chlamy pneumoniae PCR Adenovirus (PCR) B. pertussis DNA (PCR) Coronavirus OC43 (PCR) Coronavirus HKU1 (PCR) Coronavirus 229E (PCR) SARS-CoV-2 (PCR) Not detected Coronavirus NL63 (PCR) Human Metapneumovir PCR Influenza A (H1) PCR Influ A (H1N1/09) PCR Influenza A (H3) PCR Influenza Type A (PCR) Influenza A Untype (PCR) Not detected Influenza Type B (PCR) Not detected M. pneumoniae (PCR) Parainfluenza 1 (PCR) Parainfluenza 2 (PCR) Parainfluenza 3 (PCR) Parainfluenza 4 (PCR) RSV (PCR) Entero/Rhino (PCR) DS: Diagnosis Discharge Diagnosis (1) Acute exacerbation of chronic obstructive pulmonary disease: Status: Acute Code(s): J44.1 - Chronic obstructive pulmonary disease with (acute) exacerbation (2) Sepsis due to pneumonia: Status: Acute Code(s): J18.9 - Pneumonia, unspecified organism; A41.9 - Sepsis, unspecified organism (3) Symptomatic anemia: Status: Acute Code(s): D64.9 - Anemia, unspecified Problem details: Iron deficiency anemia (4) Iron deficiency anemia: Status: Acute Code(s): D50.9 - Iron deficiency anemia, unspecified (5) Hypertension: Status: Chronic Code(s): I10 - Essential (primary) hypertension Qualifiers: Hypertension type: unspecified Qualified Code(s): I10 - Essential (primary) hypertension (6) Pulmonary emboli: Status: Acute Code(s): I26.99 - Other pulmonary embolism without acute cor pulmonale (7) Obesity (BMI 30.0-34.9): Status: Chronic Code(s): E66.811 - Obesity, class 1 Meds Home Medications and Allergies Home Medications ?Medication ?Instructions ?Recorded ?Confirmed ?Type amlodipine 10 mg tablet 10 mg PO DAILY 30 days #30 t abs 07/26/24 02/05/25 Rx atorvastatin 40 mg tablet 40 mg PO HS 30 days #30 tabs 07/26/24 02/05/25 Rx bumetanide 0.5 mg tablet 0.5 mg PO DAILY #30 tabs 02/05/25 Rx fluticasone fur. 100 mcg-umeclid 1 inh inhalation JESSICA Y #60 ea 07/26/24 02/05/25 Rx 62.5 mcg-vilant 25 mcg inhalat.powder (Trelegy Ellipta) lisinopril 20 mg tablet 20 mg PO DAILY 30 days #30 t abs 07/26/24 02/05/25 Rx apixaban 5 mg tablet (Eliquis) 5 mg PO BID 02/05/25 History azithromycin 500 mg tablet See Rx Instructions PO .COM PLEX #3 02/06/25 Rx tabs cefdinir 300 mg capsule 300 mg PO BID #13 caps 02/06 Rx ferrous sulfate 325 mg (65 mg 325 mg PO DAILY #30 tabs 02/06/25 Rx iron) tablet (Iron (ferrous sulfate)) ipratropium 0.5 mg-albuterol 3 mg 3 ml inhalation Q6HP PRN shortness 02/06/25 Rx (2.5 mg base)/3 mL nebulization of breath or wheezing 30 days #180 soln mL ketorolac 0.5 % eye drops 1 drp ophthalmic (eye) BID 0 02/06/25 02/06/25 History ketotifen fumarate 0.025 % (0.035 1 drp ophthalmic (ey e) BID 02/06/25 02/06/25 History %) eye drops ofloxacin 0.3 % eye drops 1 drp ophthalmic (eye) QID 0 02/06/25 02/06/25 History pantoprazole 40 mg tablet,delayed 40 mg PO BID 5 02/06/25 History release prednisolone acetate 1 % eye 1 drp ophthalmic (eye) BI D 02/06/25 02/06/25 History drops,suspension prednisone 20 mg tablet 40 mg (2 x 20 mg) PO DAILY # 8 tabs 02/06/25 Rx New Prescriptions to Start Prescriptions: ipratropium-albuterol Rashad Pierson Kourtney cefdinir [place], Kourtney ferrous sulfate [Iron (ferrous sulfate)] Dania Matson prednisone Dania Matson Allergies Allergy/AdvReac Type Severity Reaction Status Date / Time No Known Allergies Allergy Verified 01/10/25 09:53 Discharge Plan Disposition Patient Disposition: Home, Self-Care Condition: Fair Discharge Order Discharge Orders: Discharge Order (Routine); Ordered 02/06/25 Ordered By: Dania Matson Follow up Plan Follow up with: Simin Posey MD [Primary Care Provider, Medical] - Enter time for follow up Referral Note: pt will call and make appt Mabel Ledbetter MD [Physician, Pulmonology] - Enter time for follow up Referral Note: pt will call make appt. Prescriptions/Medication Reconciliation: New cefdinir 300 mg capsule 300 mg PO BID Qty: 13 0RF ferrous sulfate [Iron (ferrous sulfate)] 325 mg (65 mg iron) tablet 325 mg PO DAILY Qty: 30 0RF prednisone 20 mg tablet 40 mg PO DAILY Qty: 8 0RF azithromycin 500 mg tablet See Rx Instructions .ROUTE .COMPLEX Qty: 3 0RF Rx Instructions: For 500 mg dose pack: take 500 mg once daily for 3 days ipratropium-albuterol 0.5 mg-3 mg(2.5 mg base)/3 mL Solution For Nebulization 3 ml inhalation Q6HP PRN (Reason: shortness of breath or wheezing) 30 Days Qty: 180 0RF Continued amlodipine 10 mg Tablet 10 mg PO DAILY 30 Days Qty: 30 0RF atorvastatin 40 mg Tablet 40 mg PO HS 30 Days Qty: 30 0RF Trelegy Ellipta 100-62.5-25 mcg Blister With Device 1 inh inhalation DAILY Qty: 60 0RF lisinopril 20 mg Tablet 20 mg PO DAILY 30 Days Qty: 30 0RF bumetanide 0.5 mg tablet 0.5 mg PO DAILY Qty: 30 0RF Eliquis 5 mg tablet 5 mg PO BID ofloxacin 0.3 % drops 1 drp ophthalmic (eye) QID Patient Comments: INSTILL 1 DROP IN OPERATIVE EYE FOUR TIMES DAILY DIRECTED FOR 7 DAYS ketotifen fumarate 0.025 % (0.035 %) drops 1 drp ophthalmic (eye) BID Patient Comments: INSTILL ONE DROP IN EACH EYE TWICE DAILY ketorolac 0.5 % drops 1 drp ophthalmic (eye) BID Patient Comments: STARTING 3 DAYS BEFORE surgery, instill 1 DROP in operative eye FOUR TIMES DAILY FOR 10 DAYS THEN decrease TO TWICE DAILY FOR FOURTEEN DAYS prednisolone acetate 1 % drops,suspension 1 drp ophthalmic (eye) BID Patient Comments: INSTILL 1 DROP IN OPERATIVE EYE FOUR TIMES DAILY DIRECTED FOR 7 DAYS, THEN decrease TO TWICE DAILY FOR FOURTEEN DAYS pantoprazole 40 mg tablet,delayed release (DR/EC) 40 mg PO BID Patient Comments: TAKE ONE TABLET BY MOUTH TWICE DAILY Other Ambulatory Orders: Home Medical Equipment (Routine) Location: None Selected Ordered By: Rashad Pierson Problem Reconciliation Problems Reviewed?: Yes Patient Discharge Instructions ACTIVITY: Continue current activity DIET: continue same diet Patient Instructions: Pneumonia--Adult, Sepsis, Stop Light Pneumonia, Stop Light COPD, Stop Light Infection Print Language: [place] Irish Providers Primary Care Provider: Simin Posey Admit Provider: Rashad Pierson Attending Provider: Rashad Pierson
[2025-02-06] MEDS: CEFDINIR 300MG CAPSULE 300 MG PO (12:20)
--- OUTSIDE RECORDS SUMMARY | 2025-02-06 13:37 | XMS_ITS | Clinical Summary ---
Author Organization Healthcare Address [address] [place] [address] Care Team Providers Care Geomagnetist Name Role Phone Pcp, No Primary Care [...] UKY-Abdominal Aortic Aneurys m (AAA) Screening 2019 [id number] Vaccine (1 - 20 24-25 season) 2024 [...] abdominal pain, fever, gastrointestinal bleeding and call customer relations coordinator GI if present. - Findings and recommendations were discussed with patient. - Findings and recommendations to be conveyed to primary team. Indication Hematemesis, unspecified whether nausea present Medications See anesthesia record for anesthesia administered medications. Staff Staff Role Mary Bueno RN Endo Nurse Shanna Silvestre Endo Pen Maker Derrick Dash MD Anesthesiologist Latasha Curry CRNA [...] Antibody Negative Negative 07/30/2024 10:39 PM EST [facility] Blood Venous blood specimen / Unknown Venipuncture / Unknown 07/30/2024 9:47 PM EST 07/30/2024 9:58 PM EST us [facility] BLOOD ORDERABLES Final Result [facility] [address] [place] [address] from Last 3 Months or Most Recently Relevant to Health Maintenance Insurance [facility] [employer] [facility] MEDICAID Advance Directives * Full Code (Latest Code Status on File) Date Activated Date Inactivated Comments 07/30/2024 11:53 PM 08/02/2024 3:16 PM Question Answer Comments Patient has decision-making capacity? Yes Care Teams Geomagnetist Relationship Specialty Start Date End Date Pcp, No [address] [place] [address] PCP - General Family Medicine 07/26/24
--- NOTE | 2025-02-06 14:10 | SW/DCPLANNER ---
Sent information to [facility] for nebulizer machine.
--- NOTE | 2025-02-08 11:14 | SW/DCPLANNER ---
Phone patient x2. Left message with name and call back number. Marcia Flowers
== END 2025-02-06 13:48 | disposition home or self-care (01) | DRG 871 ==
LOC: ER 15:07 → 2ND 15:30
PROVIDERS: Admitting Provider Internal Medicine Adolescent Medicine; Emergency Provider Emergency Medicine; PCP Family Medicine; Visit Provider Internal Medicine Adolescent Medicine
DX: A41.9 Sepsis, unspecified organism (principal); J18.9 Pneumonia, unspecified organism; J44.1 Chronic obstructive pulmonary disease with (acute) exacerbation; J44.0 Chronic obstructive pulmonary disease with (acute) lower respiratory infection; D50.9 Iron deficiency anemia, unspecified; E78.5 Hyperlipidemia, unspecified; J43.9 Emphysema, unspecified; I10 Essential (primary) hypertension; E66.811 Obesity, class 1; Z87.891 Personal history of nicotine dependence; Z86.16 Personal history of COVID-19; Z86.711 Personal history of pulmonary embolism; Z79.01 Long term (current) use of anticoagulants; Z79.899 Other long term (current) drug therapy; Z68.28 Body mass index [BMI] 28.0-28.9, adult
CPT/HCPCS: 36415; 71045; 71275; 80053; 82728; 82803; 83540; 83550; 83690; 83735; 83880; 84484; 85025; 85610; 85730; 87040; 87633; 87636; 93005; 94640; 94760; J0131; J0456; J0696; J1756; J3475; J7050; J7120; Q9967